=== PATIENT | male | born 1955 | race Caucasian/White ===

== ENCOUNTER → 2023-05-15 13:53 | Outpatient (REF) | payer MEDICARE, SELFPAY | LOC: RAD 13:53 | PROVIDERS: ATTENDING PHYSICIAN Surgery Vascular Surgery; FAMILY PHYSICIAN Family Medicine | DX: I71.40 Abdominal aortic aneurysm, without rupture, unspecified (principal) | CPT/HCPCS: 76770 ==

== ENCOUNTER → 2023-06-07 15:41 | Outpatient (REF) | payer MEDICARE, SELFPAY | LOC: HWRAD 15:41 | PROVIDERS: ATTENDING PHYSICIAN Internal Medicine Critical Care Medicine; FAMILY PHYSICIAN Family Medicine | DX: R91.1 Solitary pulmonary nodule (principal) | CPT/HCPCS: 71250 ==

== ENCOUNTER → 2023-09-10 15:32 | Outpatient (REF) | payer MEDICARE, SELFPAY | LOC: HWRAD 15:32 | PROVIDERS: ATTENDING PHYSICIAN Internal Medicine Critical Care Medicine; FAMILY PHYSICIAN Family Medicine | DX: R91.1 Solitary pulmonary nodule (principal) | CPT/HCPCS: 71250 ==

== ENCOUNTER 2023-09-26 06:45 | Day surgery (SDC) | payer MEDICARE, SELFPAY ==
[2023-09-26] VITALS (7 sets, daily range): BP systolic 101–143; BP diastolic 65–81
== END 2023-09-26 13:55 | disposition home or self-care (01) ==
LOC: GI 06:45
PROVIDERS: ATTENDING PHYSICIAN Internal Medicine Critical Care Medicine
DX: R91.1 Solitary pulmonary nodule (principal); C34.32 Malignant neoplasm of lower lobe, left bronchus or lung; R59.1 Generalized enlarged lymph nodes; R91.8 Other nonspecific abnormal finding of lung field
CPT/HCPCS: 31629; 31623; 31624; 31627; 31654; 88173; 88305; 71045; 76000; 81459; 87015; 87070; 87102; 87116; 87205; 88112; 88333; 88341; 88342; 94640; C1887

== ENCOUNTER → 2023-10-12 14:04 | Outpatient (REF) | payer MEDICARE, SELFPAY | LOC: MRI 3T 14:04 | PROVIDERS: ATTENDING PHYSICIAN Internal Medicine Critical Care Medicine; FAMILY PHYSICIAN Family Medicine | DX: C34.90 Malignant neoplasm of unspecified part of unspecified bronchus or lung (principal) | CPT/HCPCS: 70553; A9575 ==

== ENCOUNTER 2023-11-05 07:59 | Inpatient (IN) | payer MEDICARE, SELFPAY ==
[2023-10-18 13:48] LABS: % Basophils 0.7 % (0-2); % Eosinophils 1.5 % (0-6); % Immature Granulocytes 0.3 % (0-0.5); % Lymphocytes 24.3 % (20.5-51.1); % Monocytes 8.2 % (1.7-9.3); Absolute Basophils 0.1 10^3/uL (0-0.2); Absolute Eosinophils 0.1 10^3/uL (0-0.7); Absolute Lymphocytes 1.7 10^3/uL (1.2-3.4); Absolute Monocytes 0.6 10^3/uL (0.1-0.6); Absolute Neutrophils 4.4 10^3/uL (1.4-6.5); Hematocrit 38.3 % (39.0-52.0); Hemoglobin 13.7 g/dL (13.0-18.0); Mean Corp Hgb Conc. 35.8 g/dL (33.0-37.0); Mean Corpuscular Hgb 31.5 pg (27.0-31.0); Mean Platelet Volume 10.2 fL (7.4-10.4); Nucleated Red Blood Cells % 0 % (-); Platelet Count 273 10^3/uL (130-400); Red Blood Cell Count 4.35 10^6/uL (4.70-6.10); Red Cell Dist. Width 13.3 % (11.5-14.5); White Blood Cell Count 6.8 10^3/uL (4.8-10.8)
[2023-10-18 14:01] VITALS: BMI 24.8
[2023-10-18 14:02] LABS: ALT (SGPT) 12 U/L (0-50); AST (SGOT) 25 U/L (17-59); Albumin 4.7 g/dl (3.5-5.0); Alkaline Phosphatase 78 U/L (38-126); Blood Urea Nitrogen 11 mg/dl (9-20); Calcium 9.9 mg/dl (8.4-10.2); Carbon Dioxide 27 mmol/L (22-30); Chloride 102 mmol/L (98-107); Direct Bilirubin 0.3 mg/dl (0.0-0.4); Estimated Creatinine Clearance 70 ml/min; Glucose 92 mg/dl (70-99); Potassium 4.6 mmol/L (3.5-5.1); Sodium 139 mmol/L (135-145); Total Bilirubin 0.7 mg/dl (0.2-1.3); Total Protein 7.3 g/dl (6.3-8.2); eGFR > 60.00
[2023-10-18 14:07] LABS: Glycohemoglobin (HgbA1c) 5.3 % (4.0-5.6); Urine Albumin Negative (Neg - Trace); Urine Bilirubin Negative (Negative); Urine Character Clear (Clear); Urine Color Yellow; Urine Glucose Negative (Negative); Urine Ketone Negative (Negative); Urine Leukocyte Negative (Negative); Urine Nitrite Negative (Negative); Urine Occult Blood Trace (Negative); Urine Urobilinogen Negative (Neg - 1+)
[2023-10-18 14:08] LABS: INR 1.06; PT 13.9 Sec (11.4-14.6)
[2023-10-18 14:09] LABS: APTT 35.3 Sec (23.4-35.0)
[2023-10-18 14:22] LABS: Urine Bacteria Few (Negative); Urine Squamous Cell 0-2 /LPF (Few); Urine White Cell 0-2 /HPF (0-5)
--- NOTE | 2023-10-18 15:31 | CM ---
CM following for DC planning needs.
Met w/ patient during PATs for planned Lung Surgery, 10/29.
Pt. resides in a private, 2 story home w/ 3 [address] with sig. other and her mother. Functionally, patient is indep. w/ ADLs, mobility without the use of any assisted device.
Pt. does not have a prescription plan and uses [facility] for Rx needs; pays [facility] w/ discount programs.
Pre and post op routines reviewed.
Soap, shower instructions and Lung Surgery booklet provided.
Reviewed post op restrictions to include lifting and driving restrictions.
Post op MD appointments and visit from [facility] Transitional Care RN reviewed.
Plan is for Lung Surgery, 10/29.
Anticipated DC plan is for home w/ CT Transitional Care RN.
CM to follow.
[2023-11-05] VITALS (16 sets, daily range): BP systolic 102–149; BP diastolic 61–105; BMI 22.7
--- NOTE | 2023-11-05 01:12 | W.PN.CT ---
Addendum entered and electronically signed by Derian Fink PA-C 11/06/23 21:02:
Correction: Date of service for this Note should be: 11/06/23 @ 0112
Original Note:
Today's Communication / Plan
-
Plan:
-No major issues overnight. Hemodynamically and neurologically intact
-Successfully extubated intraop
-Chest tube currently on -20 cmh2o suction with 1+ air leak. Drainage: L pleural 150/270
-CxR with with tiny left apical ptx with increased in SQ emphysema on my review. F/U official cxr
-Will discuss chest to suction vs waterseal
-Will discuss possible chest binder for SQ emphysema
-Cont. current meds (ASA, Plavix, SQ heparin, Norvasc, Lasix/Kcl, Flomax)
-Consider d/c of ugarte later today after Flomax given BPH with acute urinary retention postop in the past
-Encourage use of IS
-OOB into chair/Ambulate
-F/U pathology
Assessment / Plan
-
Assessment:
-S/P Robotic assisted thoracic surgery [RATS] left lower lobectomy/Radical lymph node dissection/Intercostal nerve block interspaces 4 through 8 with 5 cc of bupivacaine solution in each, by Dr. Livingston, 11/05/23, pod#1
-Left Lung Ca /Adenocarcinoma of LLL (3.2 cm)
-Asbestos exposure
-S/p bronch biopsy 09/26/23
-Tobacco Abuse (40 pk/yr, quit 2020)
-AAA S/P FEVAR 12/07/20
-HTN
-Hyperthyroidism
-BPH
-Vitamine D deficiency
-Varicose vein S/P stripping,
-Cellulitis
-Depression/Anxiety
-Sinus bradycardia
-Skin ca of Left shoulder S/P excision, 2006
-Acute postop NSVT (6 runs of PVC's), Asymptomatic
Discussed patient care with: Cardiology, Nursing, Respiratory Therapy, Pharmacy and Care Team
Subjective
Procedure
S/P Robotic assisted thoracic surgery [RATS] left lower lobectomy/Radical lymph node dissection/Intercostal nerve block interspaces 4 through 8 with 5 cc of bupivacaine solution in each, by Dr. Livingston, 11/05/23
-
Date of Service: November 05, 2023
Pt c/o mild incisional pain, otherwise feels well
Objective Data
-
Lab Results
10/18/23 12:33
10/18/23 12:33
PT 13.9 Sec (11.4-14.6) 10/18/23 12:33
INR 1.06 10/18/23 12:33
APTT 35.3 Sec (23.4-35.0) H 10/18/23 12:33
Vital Signs
SaO2: 94 (RA)
Physical Exam
-
General: Awake, Oriented and AOx3
Cardiovascular: Regular rate & rhythm, No Murmurs, No Rub and No Gallop
Respiratory: Decreased Breath Sounds (on Left, otherwise clear)
Sternum: Stable
Incision: Clean, Dry, Intact and Dressing Intact
Extremities: No Edema
Data Reviewed
-
Lab Results: Results Reviewed
Medications: Active Meds Reviewed
Chest X-Ray: Report Reviewed and Image Reviewed
CT Scan: Report Reviewed and Image Reviewed
ECG: Report Reviewed and Image Reviewed
[2023-11-05] MEDS: BACTROBAN 2% OINTMENT 1 APPLIC NASAL (09:36)
--- NOTE | 2023-11-05 10:02 | PTCARENOTE ---
pt admitted to cvicu 2260. admission completed, pt clipped and prepped, confirmed showers x2, NPO since midnight, washed with CHG, labs sent, HM confirmed, pre-op education given, all questions answered.
--- NOTE | 2023-11-05 11:00 | W.CVOR.SURPR ---
CVOR Surgeon Immed Pre Op
-
I have examined this patient prior to performance of the scheduled procedure.
The patient's condition is unchanged from the time of the dictated/written History and
Physical and the patient is able to undergo the scheduled procedure.
RATS LLL + LN dissection
--- NOTE | 2023-11-05 11:35 | CM ---
Chart reviewed. Patient is in the OR today. Patient is independent of ADLS, lives with his significant other and mother in a 2 STH, 3 MATTHEW, 0 DME. Plan is the patient will return home with CT Transitional RN. CM to follow
[2023-11-05 11:52] LABS: Urine Albumin Negative (Neg - Trace); Urine Bilirubin Negative (Negative); Urine Character Clear (Clear); Urine Color Yellow; Urine Glucose Negative (Negative); Urine Ketone Negative (Negative); Urine Leukocyte Negative (Negative); Urine Nitrite Negative (Negative); Urine Occult Blood 2+ (Negative); Urine Urobilinogen Negative (Neg - 1+)
[2023-11-05 12:16] LABS: Urine Bacteria Few (Negative); Urine White Cell 0-2 /HPF (0-5)
--- NOTE | 2023-11-05 14:50 | W.PN.CT.SURG ---
CT Surgery Operative Note
-
THORACIC SURGERY OPERATIVE REPORT
Preoperative Diagnosis: Left lower lobe adenocarcinoma
Postoperative Diagnosis: Same, with central emphysema and scarring
Procedure(s) Performed:
1. Robotic assisted thoracic surgery [RATS] left lower lobectomy
2. Radical lymph node dissection
3. Intercostal nerve block interspaces 4 through 8 with 5 cc of bupivacaine solution in each
Date of Surgery: 11/05/2023
Comorbidities:
1. Lung cancer
2. Abdominal aortic aneurysm status post EVAR
3. Hypertension
4. Depression/anxiety
5. Hypothyroidism
6. BPH
7. History of bronchitis
8. History of tobacco abuse, quit in 2020
9. Asbestos exposure
Attending Surgeon: Tyrone Livingston MD, MS
Assistants: Marcella Hernandes PA-C (present and necessary to nurse first aid, exchanging robotic instruments, retraction, suction, exposure, suture management, and wound closure under my direction)
Anesthesiology: Brenden Salazar MD and Jan Juan CRNA
Scrub and Circulating RNs: Shaila Vick RN, Nathalia Desir RN
Anesthesia: Dual Lumen GETA
EBL: 100 cc
Products: None
Indication(s) for Procedures: This is a 68-year-old male with an extensive past smoking history. He was found to have a cavitary lesion in the left lower lobe. Robotic endoluminal bronchoscopy came back as adenocarcinoma. Given the size of the
mass, he met stage Ib the TNM staging for lung cancer. Lymph nodes were negative on preoperative workup. Given his size of the mass, I offered him a formal left lower lobectomy with lymph node dissection.
Findings: There are no obvious intrathoracic metachronous lesions that were concerning. The mass was visible on the surface and posterior left lower lobe with some puckering of the visceral pleura. The fissure was fully developed and there was
also some central emphysema making the hilum more scarred than usual. This required more dissection than usual. I was able to isolate the vessels leading to the left lower lobe as well as the basilar bronchus. The vessels were sequentially
transected first with the pulmonary artery followed by the pulmonary vein and finally after performing an inflation test demonstrating no obstruction of flow to the left upper lobe, the bronchus was divided. Lymph nodes were also sequentially
harvested from various stations. A leak test after resection of the left lower lobe demonstrated intact bronchial stump
Some minor air leaking from the overall parenchyma that was required for development of the fissure. The remaining left upper lobe had unobstructed flow at the conclusion of the case. The specimen was removed and verified manually to contain the
lesion. It was sent off for permanent pathology. At the conclusion the case, there was no significant air leak and no loss of tidal volumes. The patient was successfully extubated without incident.
Specimen(s):
Station 9, x 2 nodes
Station 10, x 1 nodes
Station 11, x 1 nodes
Station 5, x 2 nodes
Station 6, x 2 nodes
Station 7, x 1 nodes
Station 12, 1 node
left lower lobe
Description of Procedure: The patient was taken to the operating room. Induction via general anesthesia with endotracheal intubation was performed and peripheral venous access and arterial monitoring were inserted. Their identity and procedure to be
performed were verified and they were positioned with the left side up on the operating table. The patient was then prepped and draped in a sterile fashion. A preoperative time-out was performed with all members of the team present. A Veress needle
was used to insufflate the chest after isolating the lung. An 8 mm port was placed in the midaxillary line at approximately the eighth intercostal space and confirmed to be intrathoracic without significant pulmonary injury. The chest was surveyed
for any evidence of metastatic disease. Patient tolerate insufflation without complication. 2 additional 12 mm trocars were placed on either side under camera guidance and a third 8 mm trocar was placed along the back. A 12 mm patient observation assistant port was
placed in the 11th intercostal space above the insertion of the diaphragm. An intercostal nerve block was performed at intercostal spaces 4 through 8.
The thoracic cavity was inspected for evidence of metastatic disease. None was observed. We started with mobilization of the inferior pulmonary ligament. We worked our way clockwise dissecting out the hilum and harvest any lymph nodes identified.
The pulmonary arteries and veins leading to the left lower lobe were identified and skeletonized. Forward are to fully expose the hilar vessels, the right, between the left upper left lower lobe was divided using a green load staplers having
towards the pulmonary artery running along the fissure. Once the pulmonary artery was fully exposed, there were 2 significant branches leading to the left lower lobe that were sequentially divided with a white load stapler. Next the inferior
pulmonary vein was isolated and verified to be heading towards the lower lobe segment, this was divided with a white load stapler. I then clamped the bronchus and performed a test inflation which demonstrated unobstructed flow into the remaining
left upper lobe. The specimen was displaced toward the apex while a chest tube was inserted and placed laterally towards the apex. A bubble test was performed to identify any air leaks. CoSeal was used to reinforce the staple lines, raw
parenchyma, and hilum twice due to the extensive dissection required to free up the hilar vessels and develop the fissure. The left lower lobe was then placed into a specimen bag and extracted from the chest cavity. After confirming hemostasis,
the lung was fully inflated and all ports were removed. Incisions were closed in 3 layers including the fascia, dermal, and epidermis. Additional local anesthesia was injected into all incision sites. The skin wound was cleansed and sealed with
Dermabond glue.
All instrument, sponge, and needle counts were confirmed to be correct x 2 at the end of the operation. The patient was transferred to the cardiac intensive care unit extubated in critical but stable condition.
I, Dr. Tyrone Livingston, was present, scrubbed for, and performed all critical elements of this procedure.
Tyrone Livingston MD, MS
Cardiothoracic Surgeon
[facility]
This operative dictation was created using the [employer] dictation system. Please excuse any grammatical, typographical, or 'sound alike' errors
[2023-11-05] MEDS: DILAUDID 0.25 MG IV (15:10)
[2023-11-05] MEDS: TYLENOL PO (15:18)
[2023-11-05] MEDS: DILAUDID 0.5 MG IV (15:26)
--- NOTE | 2023-11-05 16:05 | CON.INTV ---
Consultation
Consultation Request
Date/Time Consultation Requested: 11/05/2023-4 PM
Date/Time Consultation Performed: 11/05/2023-4 PM
Requesting Provider: Dr. Livingston
Performing Provider: Dr. Turner
Reason for Consultation: Postoperative critical care management
Medical History
-
Chief Complaint: Lung cancer
History of Present Illness:
68-year-old male with history of hypertension, AAA, depression, anxiety, found to have left lower lobe cavitary lesion growing in size underwent bronchoscopy which was positive for malignant cells thought to have stage Ib lung cancer and underwent
lobectomy-pulmonary consulted for postoperative pulmonary/critical care management 11/05/2023. Patient is seen postoperatively. He has been successfully extubated. He feels like 'gumby'. He denies any shortness of breath, chest pain, productive
cough, pleurisy, abdominal pain, nausea, weakness or increased leg swelling.
Past Medical History
Past Medical History: None (Hypertension. Anxiety. Depression. Hypothyroid. Vitamin D deficiency. BPH. Lung cancer. Chronic bronchitis.)
Social History
Tobacco: Former Smoker (82-kqde-xfne-quit 2020)
Drug: None
Personal:
Living: With Family
Occupational Exposures: No known asbestos exposure
Environmental Exposures: No known tuberculosis exposure
Family History
Family History: Other (Father-CAD. Mother-Alzheimer's)
Allergies / Home Medications
Allergies
Allergy/AdvReac Type Severity Reaction Status Date / Time
clarithromycin [From Biaxin] Allergy Tachycardia Verified 10/16/23 14:57
clindamycin Allergy Restlessness, Verified 10/16/23 14:57
Heart
bounding
Penicillins Allergy Unknown Verified 10/16/23 14:57
Home Medications
�Medication �Instructions �Recorded �Confirmed �Last Taken �Type
alprazolam 0.5 mg tablet 0.5 mg PO BID PRN Mental 11/03/20 11/05/23 11/05/23 07:00 History
Health/Anxiety
amlodipine 2.5 mg tablet 2.5 mg PO DAILY Blood pressure 11/03/20 11/05/23 11/05/23 07:00 History
cholecalciferol (vitamin D3) 125 5,000 unit PO DAILY Supplement 11/03/20 11/05/23 10/21/23 08:00 History
mcg (5,000 unit) disintegrating
tablet
magnesium oxide 250 - 500 mg PO QPM Supplement 11/03/20 11/05/23 10/21/23 08:00 History
aspirin 81 mg tablet,delayed 81 mg PO DAILY Blood clot 12/07/20 11/05/23 10/28/23 08:00 History
release (Adult Aspirin Regimen) prevention/tx
clopidogrel 75 mg tablet 75 mg PO DAILY #60 tabs 12/13/20 11/05/23 10/28/23 08:00 Rx
alpha lipoic acid 300 mg capsule 300 mg PO BID 11/02/21 11/05/23 10/21/23 08:00 History
selenium 200 mcg tablet 200 mcg PO DAILY 11/02/21 11/05/23 10/21/23 08:00 History
tamsulosin 0.4 mg capsule 0.4 mg PO HS 11/02/21 11/05/23 10/21/23 08:00 History
zinc acetate 50 mg (zinc) capsule 50 mg PO DAILY 11/02/21 11/05/23 10/21/23 08:00 History
losartan 50 mg-hydrochlorothiazide 1 tab PO DAILY 06/08/23 11/05/23 11/01/23 08:00 History
12.5 mg tablet
albuterol sulfate 90 mcg/actuation 2 puff inhalation Q6H PRN SOB 09/24/23 11/05/23 11/05/23 07:00 History
aerosol inhaler
acetaminophen 325 mg tablet 650 mg PO Q6H PRN pain 09/26/23 11/05/23 11/04/23 21:00 History
Review of Systems
-
Unable to Obtain full review of systems at this time due to: Other (Per HPI)
Vitals / Labs / Diagnostic Testing
Vital Signs
Temp Pulse Resp BP Pulse Ox
97.9 F 71 15 108/73 94
11/05/23 15:45 11/05/23 15:45 11/05/23 15:45 11/05/23 15:45 11/05/23 15:45
Lab Data
10/18/23 12:33
10/18/23 12:33
Diagnostic Testing:
Physical Exam
-
Exam:
Well-nourished and well-developed in no apparent distress
HEENT-atraumatic, normocephalic
Neck-supple, no JVD, no bruit
Heart-regular rate and rhythm-no murmurs, rubs or gallops
Chest-clear to auscultation, no wheezes, crackles, chest tube noted
Back-no tenderness
Abdomen-soft, nontender, nondistended, no hepatosplenomegaly
Extremities-no cyanosis, clubbing, edema and good peripheral pulses
Integument-intact, no rashes, lesions or ecchymosis
Neurology-alert and oriented, nonfocal motor and sensory exam
Assessment
-
68 -year-old male with history of hypertension, AAA, depression, anxiety, found to have left lower lobe cavitary lesion growing in size underwent bronchoscopy which was positive for malignant cells thought to have stage Ib lung cancer and underwent
left lower lobectomy-pulmonary consulted for postoperative pulmonary/critical care management 11/05/2023.
Lung cancer status post robotic assisted left lower lobectomy with radical lymph node dissection-Dr. Livingston 11/05/2023
Mild hyponatremia
Conditions present prior to admission:
Hypertension.
Anxiety.
Depression.
Hypothyroid.
Vitamin D deficiency.
BPH.
Lung cancer.
Chronic bronchitis.
Plan
Patient has been successfully extubated
Incentive spirometry
Wean FiO2
Nebulizers if needed
Monitor chest tube output
Monitor hemoglobin
Monitor platelet count and coags
Transfuse blood product if needed
CT surgery following chest tubes
Monitor blood sugar
Insulin drip per protocol
DVT prophylaxis
Early nutrition
Early mobilization
Patient last saw Dr. Langley 09/12/2023-we will set up an appointment to follow-up with him postoperatively
Critical care statement: A total of 46 minutes of critical care time was provided for this patient today. This includes management of ventilator, spontaneous breathing trial, arterial blood gases, pressors, of unstable vital signs, evaluation of the
patient at bedside, reviewing the patient's pertinent medical records including radiographs, microbiology, laboratory evaluations, and discussion with primary team and critical care nursing.
Diagnostic data:
CT chest 09/10/23: left lower lobe nodule/mass, 3.2 cm, cavitary.� Slightly increased compared to prior.� Mild emphysema
CT chest 06/07/23: 1.3 cm x 3 cm cavitary left lower lobe nodule. Mild centrilobular emphysema. No obvious adenopathy
PET scan 04/26/23 ([facility]): reviewed on CD. Left lower lobe nodule noted. Max SUV 4.1. Size 1.9 cmLDCT 04/10/23 ([facility]): Reviewed on CD. left lower lobe lobular nodule notedCT
PET scan 10/17/2023-small cavitary lesion left lower lobe slightly increased in size with slightly greater FDG uptake compared to April 2023-max SUV 4.9 on prior SUV was 4.1
chest 04/10/23 ([place]): reviewed images, 2.8 cm lingular nodule, cavitary 1.6 cm lesion in the liver, benign appearing. Aortic stent
Doppler 01/29/22: negative right DVT
Abd CT 12/09/20: bibasilar subpleural atelectasisCXR 12/02/20: No acute findings.
PFT 06/14/23: FVC 4.96/119%, FEV1 3.12/101%, ratio 63. TLC 7.62/114%, RV 2.32/93%, DLCO 20.01/77%. flow-volume loop consistent with obstructive process. Mild obstructive lung disease with Isolated mild gas exchange defect.
Data Reviewed
-
PFT: Report reviewed by me
EKG: Report reviewed by me
Radiology: Report reviewed by me
CT Scan: Image personally visualized and interpreted and Report reviewed by me
Medical Tests (Nuc Med, Echo etc): Report reviewed by me
Labs: Labs reviewed by me
Old Records: Reviewed
Critical Care Time (in minutes): 46
[2023-11-05] MEDS: TORADOL 15 MG IV (16:23)
[2023-11-05] MEDS: NEURONTIN 100 MG PO ×2 (16:24→22:57)
--- NOTE | 2023-11-05 16:39 | PTCARENOTE ---
received pt from PACU , pt AAOx3, afebrile, pt complaining of pain 3, Toradol given, NSR per tele HR 60s, palpable pulses, BP 120s/60s, pox 97%, L pleural CT to wall suction, +1 intermittent air leak, no crepitus/tidaling, lungs diminished, +bs,
denies nausea, ugarte draining clear yellow urine, all surgical incisions intact, piv intact, L radial A-line zeroed
[2023-11-05] MEDS: MAG-TAB SR 84 MG PO (18:58)
--- NOTE | 2023-11-05 20:00 | PTCARENOTE ---
Assumed care of patient at 1900. Patient found in bed at time of assessment. Patient is Aox4, follows commands appropriately, moves all extremities. Lung sounds have some rhonci on the L side in lower and middle lobe, patient has shallow
respirations, there is a nonproductive moist cough noted, patient has an saO2 of 95% on RA. Heart sounds have a regular rate and rhythm, patient has normal palpable pulses, no edema is noted patient is in SR/SB on the monitor. Patient has active BS
in all four quadrants and there is a ugarte in place draining clear yellow urine. Patient has R Hand 18G and R radial [place]. There is a L pleural CT wound- 4x4 CDI, 1 lateral L chest incision approx with surg adhesive YVES, 3x L upper chest incisions
approx with surg adhesive [employer]ADING [employer]OR. Patient c/o pain given medication per parameters.
[2023-11-05] MEDS: ROXICODONE 5 MG PO (20:12)
[2023-11-05] MEDS: HEPARIN 5000 UNITS SC (20:13)
[2023-11-05] MEDS: SENOKOT 8.6 MG PO (20:13)
[2023-11-05] MEDS: ANCEF 5 IV (20:14)
[2023-11-05] MEDS: TYLENOL 1000 MG PO (22:57)
[2023-11-05] MEDS: FLOMAX 0.4 MG PO (22:57)
[2023-11-06] VITALS (14 sets, daily range): BP systolic 93–158; BP diastolic 60–103; BMI 22.7
--- NOTE | 2023-11-06 | PTCARENOTE ---
Patient reassessed. VSS. Continues to c/o pain given Mireya per parameters. Remains SR/SB on the monitor.
[2023-11-06] MEDS: ROXICODONE 5 MG PO ×5 (00:20→21:15)
[2023-11-06] MEDS: HEPARIN 5000 UNITS SC ×3 (01:40→16:34)
[2023-11-06] MEDS: ANCEF 5 IV ×2 (03:34→11:58)
[2023-11-06 04:12] LABS: Hematocrit 33.8 % (39.0-52.0); Hemoglobin 12.1 g/dL (13.0-18.0); Mean Corp Hgb Conc. 35.8 g/dL (33.0-37.0); Mean Corpuscular Hgb 31.3 pg (27.0-31.0); Mean Corpuscular Volume 87.3 fL (80.0-94.0); Mean Platelet Volume 9.9 fL (7.4-10.4); Platelet Count 205 10^3/uL (130-400); Red Blood Cell Count 3.87 10^6/uL (4.70-6.10); Red Cell Dist. Width 13.5 % (11.5-14.5)
[2023-11-06 04:44] LABS: Blood Urea Nitrogen 16 mg/dl (9-20); Calcium 8.9 mg/dl (8.4-10.2); Carbon Dioxide 20 mmol/L (22-30); Chloride 103 mmol/L (98-107); Estimated Creatinine Clearance 81 ml/min; Glucose 106 mg/dl (70-99); Magnesium 2.1 mg/dl (1.6-2.3); Potassium 4.3 mmol/L (3.5-5.1); Sodium 136 mmol/L (135-145); eGFR > 60.00
--- NOTE | 2023-11-06 05:21 | PTCARENOTE ---
Patient reassessed. VSS. Remains SB on the monitor. AM labs obtained. AM hygiene care provided.
[2023-11-06] MEDS: TORADOL 15 MG IV ×3 (05:55→17:59)
[2023-11-06] MEDS: TYLENOL 1000 MG PO ×3 (05:55→21:15)
--- NOTE | 2023-11-06 07:38 | W.PN.INTV ---
Today's Communication / Plan
Recommendations
Wean oxygen
Monitor chest tube output
Follow chest x-ray with tiny left apical pneumothorax and subcutaneous emphysema
Outpatient pulmonary follow-up
Patient will be transferred to telemetry-call pulmonary if respiratory issues arise
Assessment
-
68 -year-old male with history of hypertension, AAA, depression, anxiety, found to have left lower lobe cavitary lesion growing in size underwent bronchoscopy which was positive for malignant cells thought to have stage Ib lung cancer and underwent
left lower lobectomy-pulmonary consulted for postoperative pulmonary/critical care management 11/05/2023.
Lung cancer status post robotic assisted left lower lobectomy with radical lymph node dissection-Dr. Livingston 11/05/2023
Mild hyponatremia
Tiny left apical pneumothorax postoperatively
Conditions present prior to admission:
Hypertension.
Anxiety.
Depression.
Hypothyroid.
Vitamin D deficiency.
BPH.
Lung cancer.
Chronic bronchitis.
Plan
Respiratory status stable
Incentive spirometry encouraged
Wean FiO2-assess discharge supplemental oxygen needs
Nebulizers if needed
Chest x-ray 11/06/2023-tiny left apical pneumothorax-improved, progressed severe subcutaneous emphysema in the left lateral hemithorax
Continue to monitor chest tube output
Monitor hemoglobin
Monitor platelet count and coags
Transfuse blood product if needed
CT surgery following chest tubes
Monitor blood sugar
Insulin supplementation as needed
DVT prophylaxis
Early nutrition
Early mobilization
The patient will be transferred to telemetry-pulmonary will sign off-please call with questions
Patient last saw Dr. Langley 09/12/2023-we will set up an appointment to follow-up with him postoperatively
Reviewed the patient's pertinent medical records including radiographs, microbiology, laboratory evaluations, and discussion with primary team and critical care nursing.
Diagnostic data:
CT chest 09/10/23: left lower lobe nodule/mass, 3.2 cm, cavitary.� Slightly increased compared to prior.� Mild emphysema
CT chest 06/07/23: 1.3 cm x 3 cm cavitary left lower lobe nodule. Mild centrilobular emphysema. No obvious adenopathy
PET scan 04/26/23 ([facility]): reviewed on CD. Left lower lobe nodule noted. Max SUV 4.1. Size 1.9 cmLDCT 04/10/23 ([facility]): Reviewed on CD. left lower lobe lobular nodule notedCT
PET scan 10/17/2023-small cavitary lesion left lower lobe slightly increased in size with slightly greater FDG uptake compared to April 2023-max SUV 4.9 on prior SUV was 4.1
chest 04/10/23 ([place]): reviewed images, 2.8 cm lingular nodule, cavitary 1.6 cm lesion in the liver, benign appearing. Aortic stent
Doppler 01/29/22: negative right DVT
Abd CT 12/09/20: bibasilar subpleural atelectasisCXR 12/02/20: No acute findings.
PFT 06/14/23: FVC 4.96/119%, FEV1 3.12/101%, ratio 63. TLC 7.62/114%, RV 2.32/93%, DLCO 20.01/77%. flow-volume loop consistent with obstructive process. Mild obstructive lung disease with Isolated mild gas exchange defect.
Subjective Dataa
Subjective Data
Date of Service:
Date of Service: November 06, 2023
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
Subjective:
Out of bed, feels well, some chest tube site pain, no shortness of breath or abdominal pain
Review of Systems
General: Other (Per HPI)
Objective Data
Data Reviewed
Vital Signs / I&O / Oxygen:
Vital Signs
Temp Pulse Resp BP Pulse Ox
98.5 F 68 21 125/69 94
11/06/23 03:00 11/06/23 06:45 11/06/23 06:15 11/06/23 06:00 11/06/23 06:45
Intake and Output
11/05/23 11/06/23 11/07/23
06:59 06:59 06:59
Intake Total 100 / 100
Output Total 1275 / 1275
Balance -1175 / -1175
SaO2 94
Physical Exam
General: Respiratory Distress (n) and Comfortable
HEENT: Normocephalic, Anicteric and Moist Mucous Membranes
Cardiovascular: Regular Rhythm and Murmur (n)
Respiratory: Wheeze (n), Rhonchi (Few expiratory), Non-Labored Respirations, Accessory Resp Muscle Use (n) and Stridor (n)
GI: Soft, Non Distended and Non Tender
Neurology: Awake, Alert and No Motor Deficits
Skin: Warm, Good Color, Cyanosis, Jaundice (n) and Rash (n)
Labs/Micro/Reports
Lab Data
11/06/23 03:19
11/06/23 03:19
--- NOTE | 2023-11-06 08:00 | PTCARENOTE ---
Assumed care of patient from tong setter RN. AAO x 3. C/o LT lateral chest pain in chest tube/incision sites. LT chest tube with intermittent air leak and tidling noted. Rhonchi noted in bilateral lung lazaro. Abdomen soft and non tender.
Voiding w/o issue. Pain management addressed. Plan for day discussed
[2023-11-06] MEDS: ASPIR LOW (ENTERIC COATED) 81 MG PO (08:51)
[2023-11-06] MEDS: NEURONTIN 100 MG PO ×3 (08:51→21:16)
[2023-11-06] MEDS: NORVASC 2.5 MG PO (08:51)
[2023-11-06] MEDS: VITAMIN D3 (cholecalciferol) 125 MCG PO (08:51)
[2023-11-06] MEDS: KCL 20 MEQ PO (08:51)
[2023-11-06] MEDS: SENOKOT 8.6 MG PO ×2 (08:51→21:16)
[2023-11-06] MEDS: PLAVIX 75 MG PO (08:51)
[2023-11-06] MEDS: MIRALAX PO (08:52)
[2023-11-06] MEDS: LIDOCAINE 4% PATCH 1 PATCH TOPICAL (08:52)
[2023-11-06] MEDS: LASIX 20 MG IV (08:52)
--- NOTE | 2023-11-06 09:00 | PTCARENOTE ---
Abdominal binder placed as per MD order. Crepitus noted at Lt lateral chest. VSS
--- NOTE | 2023-11-06 10:46 | CM ---
Chart reviewed. Patient is independent of ADLS, lives with his significant other and mother in a 2 [address], 3 [facility], 0 [facility]. Plan is for the patient to return home with CT Transitional RN. CM to follow
[2023-11-06] MEDS: XANAX 0.5 MG PO ×2 (11:58→22:00)
--- NOTE | 2023-11-06 12:58 | PTCARENOTE ---
Pain well managed. Air leak remains intermittent. VSS. Assessment otherwise unchanged from prior.
[2023-11-06] MEDS: TOPROL XL 12.5 MG PO (14:37)
--- NOTE | 2023-11-06 15:55 | PTCARENOTE ---
Pt due to void at 1530, Bladder scanned per protocol, pt with 323 ml urine noted in bladder. Ambulated on suction to bathroom, unable to void at present. Denies urge. CT REFRACTORY FURNACE DESIGNER notified. Will allow more time. Ambulated around entire room for approx
50 feet with steady gait. VSS. Assessment unchanged from prior.
[2023-11-06] MEDS: MAG-TAB SR PO (16:35)
[2023-11-06] MEDS: MAG-TAB SR 84 MG PO (17:59)
--- NOTE | 2023-11-06 18:14 | PTCARENOTE ---
Pt still has not voided post ugarte removal this am. Ambulated in room, stood at toilet denies urge to void. Re scanned for 464 ml urine. Wishes to wait a bit longer and attempt again after dinner. Discussed with CT TARIFF PUBLISHING AGENT. Will monitor.
--- NOTE | 2023-11-06 20:00 | PTCARENOTE ---
Assumed care of patient at 1900. Patient found OOB in chair at time of assessment. Patient is AOX4, follows commands appropriately, moves all extremities. Lung sounds have rhonci throughout, saO2 is 94% on RA, there is a L pleural CT in place to
wall suction draining red sanguineous with +1 air leak, tidaling and crepitus present. Heart sounds are audible, patient is in SR/SB/SA at times, there are normal palpable pulses and no edema is noted. Patient has active BS throughout all four
quadrants and has had difficulty with urinary retention during day will bladder scan shortly after patient attempts to void. Patient has a L back CT wound with 4x4 dressing that is CDI, a L lateral incision approx with surg adhesive HEALTH CARE LIAISON, and 3x L
upper chest incisions approx with surg adhesive YVES. Patient appears to have fungal rash of groin acquiring desenex per protocol. There is a R Hand PIV available for intermittent infusion. VSS.
[2023-11-06] MEDS: FLOMAX 0.4 MG PO (21:15)
[2023-11-07] VITALS (10 sets, daily range): BP systolic 116–160; BP diastolic 73–104; BMI 23.4
--- NOTE | 2023-11-07 00:04 | PTCARENOTE ---
Patient reassessed. VSS. Patient scanned for 650 mL in the bladder following small void. Patient attempted another void only measuring 50mL. Orders received to place Ugarte. 16FR ugarte placed without difficulty at 2200 which patient tolerated.
Drained for 600mL of jinny clear urine. Patient given [id number] for pain.
[2023-11-07] MEDS: HEPARIN 5000 UNITS SC ×4 (00:16→22:35)
[2023-11-07] MEDS: DESENEX/MITRAZOL/ZEASORB 1 APPLIC TOPICAL ×3 (00:16→21:09)
--- NOTE | 2023-11-07 04:38 | W.PN.CT ---
Today's Communication / Plan
-
Plan:
-No major issues overnight. Hemodynamically and neurologically intact
-Chest tube currently on -20 cmh2o suction with 1+ air leak. Drainage: L pleural 135/270
-CxR with with tiny left apical ptx with SQ emphysema on my review. F/U official cxr
-Will discuss chest to suction vs waterseal
-Cont. current meds (ASA, Plavix, SQ heparin, Norvasc, Lasix/Kcl, Flomax)
-Acute postop urinary retention, scanned for > 600 mL, ugarte reinsert @ 2230 on 11/05 and d/c'd next morning. Voiding trials
-Encourage use of IS
-OOB into chair/Ambulate
-F/U pathology
Assessment / Plan
-
Assessment:
-S/P Robotic assisted thoracic surgery [RATS] left lower lobectomy/Radical lymph node dissection/Intercostal nerve block interspaces 4 through 8 with 5 cc of bupivacaine solution in each, by Dr. Livingston, 11/05/23, pod#2
-Left Lung Ca /Adenocarcinoma of LLL (3.2 cm)
-Asbestos exposure
-S/p bronch biopsy 09/26/23
-Tobacco Abuse (40 pk/yr, quit 2020)
-AAA S/P FEVAR 12/07/20
-HTN
-Hyperthyroidism
-BPH
-Vitamine D deficiency
-Varicose vein S/P stripping,
-Cellulitis
-Depression/Anxiety
-Sinus bradycardia
-Skin ca of Left shoulder S/P excision, 2006
-Acute postop NSVT (6 runs of PVC's), Asymptomatic
-Acute postop urinary retention, scanned for > 600 mL, ugarte reinsert @ 2230 on 11/05 and d/c'd next morning
Discussed patient care with: Cardiology, Nursing, Respiratory Therapy, Pharmacy and Care Team
Subjective
Procedure
S/P Robotic assisted thoracic surgery [RATS] left lower lobectomy/Radical lymph node dissection/Intercostal nerve block interspaces 4 through 8 with 5 cc of bupivacaine solution in each, by Dr. Livingston, 11/05/23
-
Date of Service: November 07, 2023
pt c/o incisional pain, otherwise feels well
Objective Data
-
Lab Results
11/06/23 03:19
11/06/23 03:19
PT 13.9 Sec (11.4-14.6) 10/18/23 12:33
INR 1.06 10/18/23 12:33
APTT 35.3 Sec (23.4-35.0) H 10/18/23 12:33
Vital Signs
Vital Signs
Temp Pulse Resp BP Pulse Ox
98 F 48 22 132/81 97
11/07/23 03:00 11/07/23 04:30 11/07/23 03:00 11/07/23 03:23 11/07/23 03:00
CT Intake/Output/Weight
11/06/23 11/06/23 11/07/23
06:59 18:59 06:59
Intake Total 1080 / 1080
Output Total 730 / 1385 285 / 1430 1145 / 1430
Balance -730 / -1045 795 / -350 -1145 / -350
SaO2: 97 (RA)
Physical Exam
-
General: Awake, Oriented and AOx3
Cardiovascular: Regular rate & rhythm
Respiratory: Decreased Breath Sounds (at bases)
Sternum: Stable
Incision: Clean, Dry, Intact and Dressing Intact
Extremities: No Edema
Data Reviewed
-
Lab Results: Results Reviewed
Medications: Active Meds Reviewed
Chest X-Ray: Report Reviewed and Image Reviewed
ECG: Report Reviewed and Image Reviewed
--- NOTE | 2023-11-07 04:47 | PTCARENOTE ---
Patient reassessed. VSS. No c/o pain at this time. SB/SR on the surveillance monitor.
[2023-11-07] MEDS: TORADOL 15 MG IV ×2 (06:45→15:12)
[2023-11-07] MEDS: TYLENOL 1000 MG PO ×3 (06:45→21:09)
[2023-11-07] MEDS: TOPROL XL 12.5 MG PO (08:20)
[2023-11-07] MEDS: ASPIR LOW (ENTERIC COATED) 81 MG PO (08:21)
[2023-11-07] MEDS: ROXICODONE 5 MG PO ×3 (08:21→21:06)
[2023-11-07] MEDS: PLAVIX 75 MG PO (08:22)
[2023-11-07] MEDS: NORVASC 2.5 MG PO (08:22)
[2023-11-07] MEDS: VITAMIN D3 (cholecalciferol) 125 MCG PO (08:22)
[2023-11-07] MEDS: NEURONTIN 100 MG PO ×3 (08:22→21:09)
[2023-11-07] MEDS: SENOKOT 8.6 MG PO (08:22)
[2023-11-07] MEDS: MIRALAX 17 GRAMS PO (08:23)
[2023-11-07] MEDS: LIDOCAINE 4% PATCH 1 PATCH TOPICAL (08:23)
--- NOTE | 2023-11-07 08:30 | PTCARENOTE ---
Received pt from operation shift supervisor RN; pt AAOX3 and resting comfortably in chair; NSR on monitor and VSS; PIVx1 patent; Lungs diminished and rhonchus; Ct x1 to -20 wall suction, +1 air leak noted, crepitus and tidaling; positive bowel sounds; pt due to
void post Alonzo catheter removal at 0600; palpable pulses throughout; no edema noted; surgical sites C/D/I; see nursing documentation for further details.
--- NOTE | 2023-11-07 12:51 | PTCARENOTE ---
Assessment unchanged; NSR on monitor and VSS; pt worked with cardiac rehab and ambulated in hallway.
--- NOTE | 2023-11-07 12:52 | PTCARENOTE ---
Assessment unchanged; NSR on monitor and VSS.
[2023-11-07] MEDS: ProAIR HFA INHALER 2 PUFF INH (13:10)
[2023-11-07] MEDS: XANAX 0.5 MG PO ×2 (13:47→21:08)
--- NOTE | 2023-11-07 15:56 | PTCARENOTE ---
Assessment unchanged; NSR on monitor and VSS.
[2023-11-07] MEDS: MAG-TAB SR 84 MG PO (17:07)
[2023-11-07] MEDS: SENOKOT PO (21:09)
[2023-11-07] MEDS: MUCINEX 1200 MG PO (21:09)
[2023-11-07] MEDS: FLOMAX 0.4 MG PO (21:09)
--- NOTE | 2023-11-07 21:51 | PTCARENOTE ---
Pt. received at change of shift. Pt. seen and assessed in room. Pt. AOx3, VS WNL. Tele reading NSR with beatriceq. PVCs. Complaining of 8/10 pain at left side of back where chest tube insertion is located. PRN roxycodone 5mg administered around 2100. No
other complaints at this time. Patient verbalizes understanding of plan of care. Call piper within reach. Continuing to monitor at this time.
--- NOTE | 2023-11-07 22:51 | PTCARENOTE ---
abdominal binder education conducted, pt. wearing it at this time with no complaints, chest tube draining.
[2023-11-07] MEDS: ROXICODONE 2.5 MG PO (23:57)
[2023-11-08] VITALS (8 sets, daily range): BP systolic 113–149; BP diastolic 70–98; BMI 23.8
[2023-11-08 02:22] LABS: Hematocrit 34.7 % (39.0-52.0); Hemoglobin 12.9 g/dL (13.0-18.0); Mean Corp Hgb Conc. 37.2 g/dL (33.0-37.0); Mean Corpuscular Hgb 31.5 pg (27.0-31.0); Mean Corpuscular Volume 84.6 fL (80.0-94.0); Mean Platelet Volume 9.5 fL (7.4-10.4); Platelet Count 203 10^3/uL (130-400); Red Cell Dist. Width 13.4 % (11.5-14.5)
[2023-11-08 02:44] LABS: Blood Urea Nitrogen 20 mg/dl (9-20); Calcium 9.1 mg/dl (8.4-10.2); Carbon Dioxide 19 mmol/L (22-30); Chloride 106 mmol/L (98-107); Estimated Creatinine Clearance 82 ml/min; Glucose 109 mg/dl (70-99); Potassium 4.3 mmol/L (3.5-5.1); Sodium 138 mmol/L (135-145); eGFR > 60.00
[2023-11-08] MEDS: TYLENOL 1000 MG PO ×3 (05:25→22:03)
--- NOTE | 2023-11-08 07:38 | W.PN.CT ---
Today's Communication / Plan
-
-pod #3
-L pleural CT on -20 sxn with +1 intermittent air leak. No ptx on CXR
-has subcutaneous emphysema at L anterior and lateral wall - binder was put on
-encourage IS, OOB
Assessment / Plan
-
Assessment:
-S/P Robotic assisted thoracic surgery [RATS] left lower lobectomy/Radical lymph node dissection/Intercostal nerve block interspaces 4 through 8 with 5 cc of bupivacaine solution in each, by Dr. Livingston, 11/05/23, pod#3
-Left Lung Ca /Adenocarcinoma of LLL (3.2 cm)
-Asbestos exposure
-S/p bronch biopsy 09/26/23
-Tobacco Abuse (40 pk/yr, quit 2020)
-AAA S/P FEVAR 12/07/20
-HTN
-Hyperthyroidism
-BPH
-Vitamine D deficiency
-Varicose vein S/P stripping,
-Cellulitis
-Depression/Anxiety
-Sinus bradycardia
-Skin ca of Left shoulder S/P excision, 2006
-Acute postop NSVT (6 runs of PVC's), Asymptomatic
-Acute postop urinary retention, scanned for > 600 mL, ugarte reinsert @ 2230 on 11/05 and d/c'd next morning
Discussed patient care with: Nursing and Care Team
Subjective
Procedure
S/P Robotic assisted thoracic surgery [RATS] left lower lobectomy/Radical lymph node dissection/Intercostal nerve block interspaces 4 through 8 with 5 cc of bupivacaine solution in each, by Dr. Livingston, 11/05/23
-
Date of Service: November 08, 2023
Objective Data
-
Lab Results
11/08/23 02:09
11/08/23 02:09
PT 13.9 Sec (11.4-14.6) 10/18/23 12:33
INR 1.06 10/18/23 12:33
APTT 35.3 Sec (23.4-35.0) H 10/18/23 12:33
Vital Signs
Vital Signs
Temp Pulse Resp BP Pulse Ox
98.2 F 77 20 147/77 93
11/08/23 02:16 11/08/23 05:45 11/08/23 02:16 11/08/23 05:25 11/08/23 04:15
CT Intake/Output/Weight
11/07/23 11/08/23 11/08/23
18:59 06:59 18:59
Output Total 1130 / 2850 1720 / 2850 20 / 20
Balance -1130 / -2850 -1720 / -2850 -20 / -20
SaO2: 93
Physical Exam
-
General: Awake and AOx3
Cardiovascular: Regular rate & rhythm
Respiratory: Decreased Breath Sounds (few crackles on on L. No wheeze b/l. Subcut. emphysema at L lateral and anterior chest wall)
Incision: Clean, Dry and Dressing Intact
Extremities: Edema +1 (b/l varicose veins of lower extremities)
Data Reviewed
-
Lab Results: Results Reviewed
Medications: Active Meds Reviewed
Chest X-Ray: Report Reviewed and Image Reviewed
ECG: Report Reviewed and Image Reviewed
[2023-11-08] MEDS: MIRALAX PO (08:34)
[2023-11-08] MEDS: LIDOCAINE 4% PATCH 1 PATCH TOPICAL (08:34)
[2023-11-08] MEDS: ROXICODONE 5 MG PO ×3 (08:40→20:15)
[2023-11-08] MEDS: TYLENOL 650 MG PO (08:40)
[2023-11-08] MEDS: MUCINEX 1200 MG PO ×2 (08:45→20:14)
[2023-11-08] MEDS: ASPIR LOW (ENTERIC COATED) 81 MG PO (08:45)
[2023-11-08] MEDS: VITAMIN D3 (cholecalciferol) 125 MCG PO (08:45)
[2023-11-08] MEDS: SENOKOT 8.6 MG PO ×2 (08:45→20:14)
[2023-11-08] MEDS: PLAVIX 75 MG PO (08:45)
[2023-11-08] MEDS: HYZAAR 50-12.5 1 TAB PO (08:46)
[2023-11-08] MEDS: NEURONTIN 100 MG PO ×3 (08:46→22:03)
[2023-11-08] MEDS: HEPARIN 5000 UNITS SC ×3 (08:46→23:11)
[2023-11-08] MEDS: DESENEX/MITRAZOL/ZEASORB 1 APPLIC TOPICAL ×2 (08:51→20:15)
[2023-11-08] MEDS: NORVASC 2.5 MG PO (09:02)
[2023-11-08] MEDS: TOPROL XL 12.5 MG PO (09:05)
--- NOTE | 2023-11-08 10:00 | PTCARENOTE ---
Pt refused abdominal binder. Encouraged use of binder.
--- NOTE | 2023-11-08 11:18 | CM ---
CM following for DC planning needs.
Met w/ patient at bedside. He is POD#[address] Surgery. He reports that he is feeling well. He is hopeful for DC soon.
DC plan is for home w/ CT Transitional Care RN.
CM to follow closely.
--- NOTE | 2023-11-08 11:48 | PTCARENOTE ---
Pt notified RN that 'something is not right'. Pt was sitting in his recliner with his chest tube stuck in the leg rest. Pt repositioned and unstuck. PA notified. Pt stated that his pain was getting alot worse. PA renotified and in room to
evaluate pt. Awaiting repeat CXR .
[2023-11-08] MEDS: XANAX 0.5 MG PO ×2 (12:57→23:11)
[2023-11-08] MEDS: MAG-TAB SR 84 MG PO (17:47)
[2023-11-08] MEDS: XYLOCAINE 2% MDV 20 ML INJ (19:00)
--- NOTE | 2023-11-08 19:12 | W.PN.UPDATE ---
Update Note
Progress Note Update
Assessing patient prior to change of shift.
Noticed airleak seemed continuous. Dressing was removed, airleak seems to be stemming from a slight opening around his incision and chest tube.
2 silk sutures were placed.
Patient was given 10 mL of local lidocaine.
1 simple interrupted stitch was placed to close the incision around the chest tube.
Another stitch was placed to secure the tube.
Site was redressed with 2 Biopatches around the tube,gauze, and Tegaderm. CT was taped mesentery style in 3 sites below the incision.
[2023-11-08] MEDS: FLOMAX 0.4 MG PO (22:03)
--- NOTE | 2023-11-08 23:29 | PTCARENOTE ---
Addendum entered by Andrea Renae RN 11/09/23 07:32:
10cm, not 10mm
Original Note:
Pt received start of shift, HR SR/ST w/ PVCs. Chest tube connected to wall suction, set to 10mm on chest tube. Chest tube draining serosanguineous drainage. Crepitus palpated around insertion site and around to front L chest. CVPA Marcella at bedside.
Abdominal binder on pt. Around 0 pt removed abdominal binder and is refusing to wear it overnight. Extensive education provided to pt on importance of wearing abd binder. Pt continuing to refuse. Reinforced importance of using IS, pt states
understanding - pt needs further reinforcement. Pt c/o 7-9 out of [address] insertion site, villa PRN administered - see APR. SCDs on pt.
[2023-11-09] VITALS (8 sets, daily range): BP systolic 109–152; BP diastolic 59–94; BMI 23.1
--- NOTE | 2023-11-09 05:43 | PTCARENOTE ---
Pt agreeable to wearing abd binder now he is awake. Binder currently on.
[2023-11-09] MEDS: TYLENOL 1000 MG PO ×3 (06:06→22:44)
[2023-11-09] MEDS: ROXICODONE 5 MG PO ×4 (06:07→22:45)
--- NOTE | 2023-11-09 06:53 | W.PN.CT ---
Addendum entered and electronically signed by Alexis Corea MD 11/09/23 09:10:
I saw and examined the patient.
The PA's note was reviewed and I agree with the note.
Comment:
Postop day #4 status post robotic assisted left lower lobectomy, lymph node dissection, intercostal block
Doing well overall, left chest tube still with intermittent airleak and minor subcutaneous emphysema
Maintain chest tube today, placed to waterseal, repeat chest x-ray at noon
Check a.m. chest x-ray tomorrow
Patient was started on Amio for tachyarrhythmia, currently in sinus at 81
Out of bed I-S ambulate
Original Note:
Today's Communication / Plan
-
-pod #4
-L pleural CT on -10 sxn with +1 intermittent air leak.
-has subcutaneous emphysema at L anterior and lateral wall - binder is on
-encourage IS, OOB
Assessment / Plan
-
Assessment:
-S/P Robotic assisted thoracic surgery [RATS] left lower lobectomy/Radical lymph node dissection/Intercostal nerve block interspaces 4 through 8 with 5 cc of bupivacaine solution in each, by Dr. Livingston, 11/05/23, pod#4
-Left Lung Ca /Adenocarcinoma of LLL (3.2 cm)
-Asbestos exposure
-S/p bronch biopsy 09/26/23
-Tobacco Abuse (40 pk/yr, quit 2020)
-AAA S/P FEVAR 12/07/20
-HTN
-Hyperthyroidism
-BPH
-Vitamine D deficiency
-Varicose vein S/P stripping,
-Cellulitis
-Depression/Anxiety
-Sinus bradycardia
-Skin ca of Left shoulder S/P excision, 2006
-Acute postop NSVT (6 runs of PVC's), Asymptomatic
-Acute postop urinary retention, scanned for > 600 mL, torito orozco @ 2230 on 11/05 and d/c'd next morning
Discussed patient care with: Nursing and Care Team
Subjective
Procedure
S/P Robotic assisted thoracic surgery [RATS] left lower lobectomy/Radical lymph node dissection/Intercostal nerve block interspaces 4 through 8 with 5 cc of bupivacaine solution in each, by Dr. Livingston, 11/05/23
-
Date of Service: November 09, 2023
Objective Data
-
Lab Results
11/08/23 02:09
11/08/23 02:09
PT 13.9 Sec (11.4-14.6) 10/18/23 12:33
INR 1.06 10/18/23 12:33
APTT 35.3 Sec (23.4-35.0) H 10/18/23 12:33
Vital Signs
Vital Signs
Temp Pulse Resp BP Pulse Ox
98.7 F 69 18 138/91 94
11/08/23 23:20 11/08/23 23:20 11/08/23 23:20 11/08/23 23:20 11/09/23 00:23
CT Intake/Output/Weight
11/08/23 11/08/23 11/09/23
06:59 18:59 06:59
Intake Total 1000 / 1000
Output Total 1720 / 2850 94 / 94
Balance -1720 / -2850 906 / 906
SaO2: 94
Physical Exam
-
General: Awake and AOx3
Cardiovascular: Regular rate & rhythm
Respiratory: Decreased Breath Sounds (few crackles on on L. No wheeze b/l. Subcut. emphysema at L lateral and anterior chest wall)
Incision: Clean, Dry and Dressing Intact
Extremities: Edema +1 (b/l varicose veins of lower extremities)
Data Reviewed
-
Lab Results: Results Reviewed
Medications: Active Meds Reviewed
Chest X-Ray: Report Reviewed and Image Reviewed
ECG: Report Reviewed and Image Reviewed
[2023-11-09] MEDS: CORDARONE 518 MG IV (08:42)
[2023-11-09] MEDS: TOPROL XL 12.5 MG PO (08:45)
[2023-11-09] MEDS: ASPIR LOW (ENTERIC COATED) 81 MG PO (08:45)
[2023-11-09] MEDS: PACERONE 200 MG PO ×3 (08:45→22:44)
[2023-11-09] MEDS: HYZAAR 50-12.5 1 TAB PO (08:45)
[2023-11-09] MEDS: MUCINEX 1200 MG PO ×2 (08:45→20:45)
[2023-11-09] MEDS: VITAMIN D3 (cholecalciferol) 125 MCG PO (08:45)
[2023-11-09] MEDS: PLAVIX 75 MG PO (08:46)
[2023-11-09] MEDS: MIRALAX 17 GRAMS PO (08:46)
[2023-11-09] MEDS: SENOKOT 8.6 MG PO ×2 (08:46→20:46)
[2023-11-09] MEDS: HEPARIN 5000 UNITS SC ×3 (08:46→23:07)
[2023-11-09] MEDS: NEURONTIN 100 MG PO ×3 (08:46→22:44)
[2023-11-09] MEDS: LIDOCAINE 4% PATCH 1 PATCH TOPICAL (08:47)
[2023-11-09] MEDS: NORVASC 2.5 MG PO (09:23)
[2023-11-09] MEDS: DESENEX/MITRAZOL/ZEASORB 1 APPLIC TOPICAL ×2 (09:24→20:46)
--- NOTE | 2023-11-09 10:43 | PTCARENOTE ---
at 0617 patient had 27 beats of Vtach, asymptomatic according to night RN. Dr. Livingston on rounds, aware of ectopy, ordered IV amiodarone drip. new INT placed in left forearm as per protocol. IV amiodarone infusing at 0.5mg/min also dose of po
amiodarone given as ordered.patient CT is intact, crepitus noted under binder, CT was to 10cm suction but CVICU PA at 0930 switched to water seal and patient will obtain chest xray at noon today. lung lazaro rhonchi thruout, on RA o2 sat 94%,
strongly encouraged patient to use I/S. patient is mobile and gets in and out of bed, marcos. well.
--- NOTE | 2023-11-09 13:40 | PTCARENOTE ---
Addendum entered by Shelbi Hopkins RN 11/09/23 16:57:
patient is ordered another chest xray for 1700. CT remains off of suction, crepitus noted up to neck, binder on.
Original Note:
patient c/o left upper back pain, oxycodone hydrochloride 5 mg given as ordered.
--- NOTE | 2023-11-09 14:47 | CM ---
CM following for DC planning needs.
Met w/ patient at bedside. Pt. feels well, POD#4.
Reviewed DC plan for home w/ CT Transitional Care RN.
Of note, patient has no prescription plan. Any DC meds would need to be those that have a generic.
CM will cont. to follow.
[2023-11-09] MEDS: XANAX 0.5 MG PO ×2 (15:22→23:14)
--- NOTE | 2023-11-09 16:33 | PTCARENOTE ---
patient requested Xanax, po given as ordered.
--- NOTE | 2023-11-09 18:04 | PTCARENOTE ---
Addendum entered by Shelbi Hopkins RN 11/09/23 18:20:
CT to -15cm
Original Note:
Mervat SORTO SYSTEM CONSULTANT, was in room assessing crepitus, chest tube was put back to suction at 15cm. abd. wei remains on. chest xray completd at 1730.
[2023-11-09] MEDS: MAG-TAB SR 84 MG PO (18:24)
--- NOTE | 2023-11-09 18:28 | PTCARENOTE ---
patient c/o left upper back/ CT site pain, Roxicodone po given as ordered.
[2023-11-09] MEDS: FLOMAX 0.4 MG PO (22:44)
--- NOTE | 2023-11-10 00:20 | PTCARENOTE ---
Pt. rec'd at beginning of shift OOB in chair, AAOx3, VSS, NSR with frequent PVC's on the monitor. Left chest tube to suction -15 cm H2O, draining small amount of serosanguineous fluid. Site dressing CDI, crepitus present around site and in left
anterior/posterior shoulder. Lung sounds coarse with some rhonchi, pulse ox 98% RA. Oxycodone effective for CT site discomfort. Pt. ambulatory with steady gait, needs assist managing CT and IV pole with transferring. Amiodarone gtt infusing at
0.5 mg/min. Pt. currently sleeping.
[2023-11-10 03:52] VITALS: BP 117/77
[2023-11-10] MEDS: ROXICODONE 5 MG PO ×3 (03:55→22:23)
[2023-11-10 05:06] VITALS: BMI 23.3
--- NOTE | 2023-11-10 05:11 | W.PN.CT ---
Addendum entered and electronically signed by Alexis Corea MD 11/10/23 08:51:
I saw and examined the patient.
The PA's note was reviewed and I agree with the note.
Comment:
Postop day #5
Continued air leak present only on forced expiration
Maintain chest tube to -15 suction
Check daily chest x-rays, chest x-ray: No significant pneumothorax. Slightly increased subcutaneous emphysema, chest tube is in good position
Out of bed I-S, ambulate
Original Note:
Today's Communication / Plan
-
-pod #5
-drips: Amio 0.5
-L pleural CT on -15 sxn with +1 air leak with cough only
-increased subcutaneous emphysema at L anterior and lateral wall and L neck - binder is on
-follow daily CXR
-encourage IS, OOB
Assessment / Plan
-
Assessment:
-S/P Robotic assisted thoracic surgery [RATS] left lower lobectomy/Radical lymph node dissection/Intercostal nerve block interspaces 4 through 8 with 5 cc of bupivacaine solution in each, by Dr. Livingston, 11/05/23, pod#5
-Left Lung Ca /Adenocarcinoma of LLL (3.2 cm)
-Asbestos exposure
-S/p bronch biopsy 09/26/23
-Tobacco Abuse (40 pk/yr, quit 2020)
-AAA S/P FEVAR 12/07/20
-HTN
-Hyperthyroidism
-BPH
-Vitamine D deficiency
-Varicose vein S/P stripping,
-Cellulitis
-Depression/Anxiety
-Sinus bradycardia
-Skin ca of Left shoulder S/P excision, 2006
-Acute postop NSVT (6 runs of PVC's), Asymptomatic
-Acute postop urinary retention, scanned for > 600 mL, torito orozco @ 2230 on 11/05 and d/c'd next morning
Discussed patient care with: Nursing and Care Team
Subjective
Procedure
S/P Robotic assisted thoracic surgery [RATS] left lower lobectomy/Radical lymph node dissection/Intercostal nerve block interspaces 4 through 8 with 5 cc of bupivacaine solution in each, by Dr. Livingston, 11/05/23
-
Date of Service: November 10, 2023
Objective Data
-
Lab Results
11/08/23 02:09
11/08/23 02:09
PT 13.9 Sec (11.4-14.6) 10/18/23 12:33
INR 1.06 10/18/23 12:33
APTT Cancelled 11/09/23 11:40
Vital Signs
Vital Signs
Temp Pulse Resp BP Pulse Ox
98.5 F 66 20 117/77 95
11/10/23 03:55 11/10/23 05:00 11/10/23 03:55 11/10/23 03:52 11/10/23 03:[address]
CT Intake/Output/Weight
11/09/23 11/09/23 11/10/23
06:59 18:59 06:59
Intake Total 1320 / 2320 684 / 1364.4 680.4 / 1364.4
Output Total 0 / 0
Balance 1320 / 2226 684 / 1364.4 680.4 / 1364.4
SaO2: 95
Physical Exam
-
General: Awake and AOx3
Cardiovascular: Regular rate & rhythm and No Murmurs
Respiratory: Decreased Breath Sounds
Incision: Clean, Dry, Intact and Other (+ crepitus lateral and anterior chest and L side of neck)
Extremities: Other (trace edema (varicose veins))
Data Reviewed
-
Lab Results: Results Reviewed
Medications: Active Meds Reviewed
Chest X-Ray: Report Reviewed and Image Reviewed
[2023-11-10] MEDS: TYLENOL 1000 MG PO ×3 (06:17→22:19)
[2023-11-10 07:07] VITALS: BP 125/72
[2023-11-10] MEDS: NORVASC 2.5 MG PO (09:12)
[2023-11-10] MEDS: MUCINEX 1200 MG PO ×2 (09:12→19:29)
[2023-11-10] MEDS: NEURONTIN 100 MG PO ×3 (09:12→22:18)
[2023-11-10] MEDS: VITAMIN D3 (cholecalciferol) 125 MCG PO (09:13)
[2023-11-10] MEDS: TOPROL XL 25 MG PO (09:13)
[2023-11-10] MEDS: PACERONE 200 MG PO ×3 (09:13→22:18)
[2023-11-10] MEDS: HYZAAR 50-12.5 1 TAB PO (09:14)
[2023-11-10] MEDS: SENOKOT 8.6 MG PO ×2 (09:14→19:29)
[2023-11-10] MEDS: PLAVIX 75 MG PO (09:14)
[2023-11-10] MEDS: HEPARIN 5000 UNITS SC ×3 (09:15→23:14)
[2023-11-10] MEDS: DESENEX/MITRAZOL/ZEASORB 1 APPLIC TOPICAL ×2 (09:17→19:29)
[2023-11-10] MEDS: ASPIR LOW (ENTERIC COATED) 81 MG PO (09:20)
[2023-11-10] MEDS: MIRALAX 17 GRAMS PO (09:22)
[2023-11-10] MEDS: LIDOCAINE 4% PATCH 1 PATCH TOPICAL (09:22)
--- NOTE | 2023-11-10 10:00 | PTCARENOTE ---
Assumed care of pt from night RN. Pt received awake and alert, Ox3. VSS, CM shows NSR with monomorphic PVC's. Amiodarone drip D/C'd as ordered, site D/C'd per protocol. Pt remains on oral Amiodarone as per APR. Chest tube remains to 15 cm water
drainage, draining small amount of serosan fluid. Dr Croea in to see pt. Minimal air leak and crepitus noted. Abd binder on as ordered. Ambulating in room with CT without difficulty. Will continue to monitor.
[2023-11-10 11:15] VITALS: BP 113/80
[2023-11-10] MEDS: XANAX 0.5 MG PO ×2 (12:14→23:14)
--- NOTE | 2023-11-10 12:53 | PTCARENOTE ---
Roxicodone and Xanax given per MAR at pt's request.
[2023-11-10 16:22] VITALS: BP 99/64
[2023-11-10] MEDS: MAG-TAB SR 84 MG PO (18:00)
[2023-11-10 19:16] VITALS: BP 100/68
[2023-11-10 22:17] VITALS: BP 121/92
[2023-11-10] MEDS: FLOMAX 0.4 MG PO (22:18)
[2023-11-11] VITALS (7 sets, daily range): BP systolic 97–121; BP diastolic 61–76
--- NOTE | 2023-11-11 05:36 | W.PN.CT ---
Addendum entered and electronically signed by Alexis Corea MD 11/11/23 10:06:
I saw and examined the patient.
The PA's note was reviewed and I agree with the note.
Comment:
Postop day #6 status post robotic assisted left lower lobectomy, lymph node dissection
Airleak has resolved on suction, will transition to waterseal today
Check chest x-ray in a.m. tomorrow
Potential chest tube removal tomorrow
Original Note:
Today's Communication / Plan
-
-pod #6
-L pleural CT on -15 sxn now without airleak on cough/deep inspiration
-subcutaneous emphysema at L anterior and lateral wall and L neck - binder is on, appears stable on CXR today
-PO amio, metoprolol
-multimodal pain management (APAP, gabapentin, lido patch)
-Cont. asa/Plavix
-follow daily CXR
-encourage IS, OOB
Assessment / Plan
-
Assessment:
-S/P Robotic assisted thoracic surgery [RATS] left lower lobectomy/Radical lymph node dissection/Intercostal nerve block interspaces 4 through 8 with 5 cc of bupivacaine solution in each, by Dr. Livingston, 11/05/23, pod#6
-Left Lung Ca /Adenocarcinoma of LLL (3.2 cm)
-Asbestos exposure
-S/p bronch biopsy 09/26/23
-Tobacco Abuse (40 pk/yr, quit 2020)
-AAA S/P FEVAR 12/07/20
-HTN
-Hyperthyroidism
-BPH
-Vitamine D deficiency
-Varicose vein S/P stripping,
-Cellulitis
-Depression/Anxiety
-Sinus bradycardia
-Skin ca of Left shoulder S/P excision, 2006
-Acute postop NSVT (6 runs of PVC's), Asymptomatic
-Acute postop urinary retention, scanned for > 600 mL, torito lant @ 2230 on 11/05 and d/c'd next morning
Subjective
Procedure
S/P Robotic assisted thoracic surgery [RATS] left lower lobectomy/Radical lymph node dissection/Intercostal nerve block interspaces 4 through 8 with 5 cc of bupivacaine solution in each, by Dr. Livingston, 11/05/23
-
Date of Service: November 11, 2023
Objective Data
-
Lab Results
11/08/23 02:09
11/08/23 02:09
PT 13.9 Sec (11.4-14.6) 10/18/23 12:33
INR 1.06 10/18/23 12:33
APTT Cancelled 11/09/23 11:40
Vital Signs
Vital Signs
Temp Pulse Resp BP Pulse Ox
98.3 F 54 18 112/76 96
11/11/23 03:59 11/11/23 04:00 11/11/23 03:59 11/11/23 03:56 11/11/23 03:59
CT Intake/Output/Weight
11/10/23 11/10/23 11/11/23
06:59 18:59 06:59
Intake Total 680.4 / 1364.4 1060 / 1060
Output Total 40 / 40 140 / 140
Balance 640.4 / 1324.4 -140 / 920 1060 / 920
SaO2: 96
Physical Exam
-
General: Awake and Oriented
Cardiovascular: Regular rate & rhythm, No Murmurs and No Rub
Respiratory: Clear and Other (supraclavicular crepitus noted)
Extremities: No Edema and No Erythema
Data Reviewed
-
Lab Results: Results Reviewed
Medications: Active Meds Reviewed
Chest X-Ray: Report Reviewed and Image Reviewed
[2023-11-11] MEDS: TYLENOL 1000 MG PO ×2 (06:03→14:34)
--- NOTE | 2023-11-11 07:16 | PTCARENOTE ---
Pt.'s chest tube drained 80 ml SS fluid overnight. Crepitus still present left neck/anterior shoulder but improved from night before. Portable CXRY taken and pending.
[2023-11-11] MEDS: HEPARIN 5000 UNITS SC ×3 (08:32→23:26)
[2023-11-11] MEDS: TOPROL XL 25 MG PO (08:33)
[2023-11-11] MEDS: ASPIR LOW (ENTERIC COATED) 81 MG PO (08:33)
[2023-11-11] MEDS: NEURONTIN 100 MG PO ×3 (08:33→21:20)
[2023-11-11] MEDS: SENOKOT 8.6 MG PO ×2 (08:33→21:21)
[2023-11-11] MEDS: PACERONE 200 MG PO ×3 (08:34→21:20)
[2023-11-11] MEDS: MUCINEX 1200 MG PO ×2 (08:34→21:21)
[2023-11-11] MEDS: HYZAAR 50-12.5 1 TAB PO (08:34)
[2023-11-11] MEDS: MIRALAX 17 GRAMS PO (08:35)
[2023-11-11] MEDS: VITAMIN D3 (cholecalciferol) 125 MCG PO (08:35)
[2023-11-11] MEDS: NORVASC 2.5 MG PO (08:35)
[2023-11-11] MEDS: PLAVIX 75 MG PO (08:35)
[2023-11-11] MEDS: LIDOCAINE 4% PATCH 1 PATCH TOPICAL (08:35)
[2023-11-11] MEDS: DESENEX/MITRAZOL/ZEASORB 1 APPLIC TOPICAL ×2 (08:36→21:21)
--- NOTE | 2023-11-11 11:14 | PTCARENOTE ---
Assumed care of pt from night RN. Pt received awake and alert, Ox3. VSS, CM shows NSR/SB, POX 98% on RA. Dr. Corea in, CT placed to water seal drg, BS less coarse today with minimal crepitus noted to left upper chest. He denies any pain or
discomfort at this time, ambulating freely in room.
[2023-11-11] MEDS: ROXICODONE 5 MG PO ×2 (12:19→22:58)
[2023-11-11] MEDS: XANAX 0.5 MG PO ×2 (12:19→21:21)
[2023-11-11] MEDS: MAG-TAB SR 84 MG PO (17:26)
--- NOTE | 2023-11-11 20:05 | PTCARENOTE ---
Pt. received at change of shift. Pt. seen and assessed in room. Pt. AOx3, VS WNL. Chest tube at -15 suction, pt. wearing abd. binder at this time. Plan of care explained to patient. Pt. verbalizes understanding. Call piper within reach. Continuing to
monitor at this time.
[2023-11-11] MEDS: TYLENOL PO (21:20)
[2023-11-11] MEDS: FLOMAX 0.4 MG PO (21:20)
[2023-11-12] VITALS (8 sets, daily range): BP systolic 98–116; BP diastolic 66–87; BMI 22.6
--- NOTE | 2023-11-12 02:17 | PTCARENOTE ---
Received care of patient at 21:00. Tele monitor shows SR w/ occasional PVCs. Left lung throughout w/ crackles and rhonchi. Crepitus present. Left Chest tube site was hooked up to suction. Per chest tube orders patient should have been on NO suction.
Danis Sanchez SENIOR ANALYST DEVELOPER made aware and at bedside. Patient reports 'The Dr's said that if I have any SOB or pain that I could put myself back on suction'. Danis Sanchez SENIOR ANALYST DEVELOPER placed patient back onto waterseal. Patient educated to not touch or adjust Chest
Tube site and to call nursing staff if having any symptoms such as pain or SOB.
At approx 22:40 traci patient sitting on side of bed and complaining of pain at the surgical site. Rating it 8/10. C/o SOB and sating 96-99% RA. Danis Sanchez SENIOR ANALYST DEVELOPER made aware and at bedside. SENIOR ANALYST DEVELOPER placed CT site back on suction and at -20cm water and
reinforced dressing. Patient w/ +1 airleak. Xray obtained at bedside. PRN 5mg Roxicodone administered for pain--see APR. CT site draining serosanguineous fluid. POC ongoing. Call piper within reach.
--- NOTE | 2023-11-12 04:34 | PTCARENOTE ---
Patients last BM unknown. Patient denies feeling constipated. Bowel sounds + in all four quadrants, and soft upon palpation. Patient reports passing gas. This RN offered PRN medications to assist w/ having a bowel movement. Patient refused at this
time, and will notify nursing staff if he becomes uncomfortable. POC ongoing. CT remains at -20cm H20 wall suction. Call piper within reach.
--- NOTE | 2023-11-12 05:07 | W.PN.CT ---
Today's Communication / Plan
-
-pod #7
-Yesterday after CT placed to WS patient felt SOB and reattached his own atrium to suction, staff unaware. After this was found he was re-educated on changing his own device settings
-after the above he was placed back to water seal, then reported increase in pain/SOB ~90 min after. I found him to have increased distention of chest wall with increased crepitus and placed back to suction. Noted to have+5 leak for a few seconds,
then back to intermittent +1 leak. PCXR obtained, no PTX but increased subq air noted. Tegaderm dressing reinforced by me.
-L pleural CT on -20 sxn now with intermittent +1 air leak
-subcutaneous emphysema at L anterior and lateral wall and L neck - binder is on
-PO amio, metoprolol
-multimodal pain management (APAP, gabapentin, lido patch)
-Cont. asa/Plavix
-follow daily CXR
-encourage IS, OOB
Assessment / Plan
-
Assessment:
-S/P Robotic assisted thoracic surgery [RATS] left lower lobectomy/Radical lymph node dissection/Intercostal nerve block interspaces 4 through 8 with 5 cc of bupivacaine solution in each, by Dr. Livingston, 11/05/23, pod#7
-Left Lung Ca /Adenocarcinoma of LLL (3.2 cm)
-Asbestos exposure
-S/p bronch biopsy 09/26/23
-Tobacco Abuse (40 pk/yr, quit 2020)
-AAA S/P FEVAR 12/07/20
-HTN
-Hyperthyroidism
-BPH
-Vitamine D deficiency
-Varicose vein S/P stripping,
-Cellulitis
-Depression/Anxiety
-Sinus bradycardia
-Skin ca of Left shoulder S/P excision, 2006
-Acute postop NSVT (6 runs of PVC's), Asymptomatic
-Acute postop urinary retention, scanned for > 600 mL, ugarte reinsert @ 2230 on 11/05 and d/c'd next morning
Subjective
Procedure
S/P Robotic assisted thoracic surgery [RATS] left lower lobectomy/Radical lymph node dissection/Intercostal nerve block interspaces 4 through 8 with 5 cc of bupivacaine solution in each, by Dr. Livingston, 11/05/23
-
Date of Service: November 12, 2023
Objective Data
-
Lab Results
11/08/23 02:09
11/08/23 02:09
PT 13.9 Sec (11.4-14.6) 10/18/23 12:33
INR 1.06 10/18/23 12:33
APTT Cancelled 11/09/23 11:40
Vital Signs
Vital Signs
Temp Pulse Resp BP Pulse Ox
98.8 F 79 18 107/71 93
11/12/23 04:21 11/12/23 04:22 11/12/23 04:21 11/12/23 04:22 11/12/23 04:22
CT Intake/Output/Weight
11/11/23 11/11/23 11/12/23
06:59 18:59 06:59
Intake Total 1060 / 1060 480 / 480
Output Total 80 / 220
Balance 980 / 840 480 / 480
SaO2: 93
Physical Exam
-
General: Awake, Oriented and AOx3
Cardiovascular: Regular rate & rhythm, No Murmurs, No Rub and Other
Respiratory: Clear, Decreased Breath Sounds and Other (crepitus noted L anterior/posterior chest wall to L shoulder)
Incision: Clean and Dry
Extremities: No Edema
Data Reviewed
-
Lab Results: Results Reviewed
Medications: Active Meds Reviewed
Chest X-Ray: Report Reviewed and Image Reviewed
ECG: Report Reviewed
[2023-11-12] MEDS: TYLENOL 1000 MG PO ×3 (06:19→21:25)
[2023-11-12] MEDS: LIDOCAINE 4% PATCH TOPICAL (08:05)
[2023-11-12] MEDS: ROXICODONE 5 MG PO ×4 (09:16→23:31)
[2023-11-12] MEDS: XANAX 0.5 MG PO ×2 (09:16→21:25)
[2023-11-12] MEDS: MUCINEX 1200 MG PO ×2 (09:19→21:24)
[2023-11-12] MEDS: MIRALAX PO (09:20)
[2023-11-12] MEDS: ASPIR LOW (ENTERIC COATED) 81 MG PO (09:20)
[2023-11-12] MEDS: NEURONTIN 100 MG PO ×3 (09:21→21:25)
[2023-11-12] MEDS: VITAMIN D3 (cholecalciferol) 125 MCG PO (09:21)
[2023-11-12] MEDS: PACERONE 200 MG PO ×3 (09:21→21:24)
[2023-11-12] MEDS: PLAVIX 75 MG PO (09:22)
[2023-11-12] MEDS: SENOKOT 8.6 MG PO ×2 (09:22→21:25)
[2023-11-12] MEDS: HEPARIN 5000 UNITS SC ×3 (09:25→23:31)
[2023-11-12] MEDS: HYZAAR 50-12.5 1 TAB PO (09:30)
[2023-11-12] MEDS: TOPROL XL 25 MG PO (09:30)
[2023-11-12] MEDS: NORVASC 2.5 MG PO (09:33)
--- NOTE | 2023-11-12 09:49 | PTCARENOTE ---
Pt c/o L upper chest pain and L axillary pain, rated 6/10. Med with Roxicodone 5 mg PO as ordered. Pt also requesting Xanax for anxiety. Med with Xanax 0.5 mg po as ordered. He will be having a bedside procedure shortly by Dr Livingston.
--- NOTE | 2023-11-12 10:51 | CM ---
Chart reviewed. Patient is independent of ADLS, lives with his significant other, and mother in a 2 [address], 3 [facility], 0 [address]. Plan is for the patient to return home with CT Transitional RN. CM to follow
[2023-11-12] MEDS: XYLOCAINE 1% 20 ML INFIL (11:16)
[2023-11-12] MEDS: XYLOCAINE 1% 10 ML INFIL (11:17)
[2023-11-12] MEDS: DESENEX/MITRAZOL/ZEASORB 1 APPLIC TOPICAL ×2 (12:54→21:25)
[2023-11-12] MEDS: LIDOCAINE 4% PATCH 1 PATCH TOPICAL (12:58)
--- NOTE | 2023-11-12 13:05 | PTCARENOTE ---
Chest tube exchanged for larger size by Dr Livingston today. Dsg remains D+I. CT to -20cm water suction. Draining small amt ss drainage.
[2023-11-12] MEDS: MAG-TAB SR 84 MG PO (18:25)
[2023-11-12] MEDS: FLOMAX 0.4 MG PO (21:25)
[2023-11-13 04:48] VITALS: BP 120/79
--- NOTE | 2023-11-13 05:08 | PTCARENOTE ---
Left chest tube w/ 40cc of serosanguineous fluid overnight. Crepitus remains present throughout the left side. No air leak present at this time. Wound vac maintained. Patient ambulating self in room w/out difficulty. Tele rhythm shows Sinus
darrion-NSR. Pt w/ no bowel movement overnight. POC ongoing.
--- NOTE | 2023-11-13 05:42 | W.PN.CT ---
Today's Communication / Plan
-
Plan:
-Pt with improving SQ emphysema after undergoing 'zaragoza slit' with wound vac application and chest tube exchange/upsized yesterday 11/11
-Noted to have air leak only with deep inspiration and phonation. Chest tube drained 60/60
-Wound vac is intact
-Cannot appreciate a ptx on cxr, SQ emphysema is improving on my assessment. F/u official cxr report
-Received milk of mag for constipation
Assessment / Plan
-
Assessment:
-S/P Robotic assisted thoracic surgery [RATS] left lower lobectomy/Radical lymph node dissection/Intercostal nerve block interspaces 4 through 8 with 5 cc of bupivacaine solution in each, by Dr. Livingston, 11/05/23, pod#8
-Left Lung Ca /Adenocarcinoma of LLL (3.2 cm)
-Asbestos exposure
-S/p bronch biopsy 09/26/23
-Tobacco Abuse (40 pk/yr, quit 2020)
-AAA S/P FEVAR 12/07/20
-HTN
-Hyperthyroidism
-BPH
-Vitamine D deficiency
-Varicose vein S/P stripping,
-Cellulitis
-Depression/Anxiety
-Sinus bradycardia
-Skin ca of Left shoulder S/P excision, 2006
-Acute postop NSVT (6 runs of PVC's), Asymptomatic
-Acute postop urinary retention, scanned for > 600 mL, torito leonardsert @ 2230 on 11/05 and d/c'd next morning
Discussed patient care with: Cardiology, Nursing, Respiratory Therapy, Pharmacy and Care Team
Subjective
Procedure
S/P Robotic assisted thoracic surgery [RATS] left lower lobectomy/Radical lymph node dissection/Intercostal nerve block interspaces 4 through 8 with 5 cc of bupivacaine solution in each, by Dr. Livingston, 11/05/23
-
Date of Service: November 13, 2023
Pt c/o mild incisional pain and constipation
Objective Data
-
Lab Results
11/08/23 02:09
11/08/23 02:09
PT 13.9 Sec (11.4-14.6) 10/18/23 12:33
INR 1.06 10/18/23 12:33
APTT Cancelled 11/09/23 11:40
Vital Signs
Vital Signs
Temp Pulse Resp BP Pulse Ox
97.9 F 53 18 120/79 97
11/13/23 04:48 11/13/23 04:48 11/13/23 04:48 11/13/23 04:48 11/13/23 04:48
CT Intake/Output/Weight
11/12/23 11/12/23 11/13/23
06:59 18:59 06:59
Intake Total 480 / 480 480 / 480
Output Total 70 / 70 60 / 60
Balance 410 / 410 420 / 420
SaO2: 97 (RA)
Physical Exam
-
General: Awake, Oriented and AOx3
Cardiovascular: Regular rate & rhythm and No Murmurs
Respiratory: Decreased Breath Sounds
Sternum: Stable
Incision: Clean, Dry, Intact and Dressing Intact
Extremities: No Edema
Data Reviewed
-
Lab Results: Results Reviewed
Medications: Active Meds Reviewed
Chest X-Ray: Report Reviewed and Image Reviewed
ECG: Report Reviewed and Image Reviewed
[2023-11-13 06:00] VITALS: BMI 22.7
[2023-11-13] MEDS: ROXICODONE 5 MG PO ×3 (06:08→23:13)
[2023-11-13] MEDS: MILK OF MAGNESIA 30 ML PO (06:08)
[2023-11-13 07:57] VITALS: BP 105/67
[2023-11-13] MEDS: MIRALAX 17 GRAMS PO (08:21)
[2023-11-13] MEDS: MUCINEX 1200 MG PO ×2 (08:21→19:48)
[2023-11-13] MEDS: HYZAAR 50-12.5 1 TAB PO (08:22)
[2023-11-13] MEDS: NORVASC 2.5 MG PO (08:22)
[2023-11-13] MEDS: TOPROL XL 25 MG PO (08:23)
[2023-11-13] MEDS: NEURONTIN 100 MG PO ×3 (08:23→22:03)
[2023-11-13] MEDS: ASPIR LOW (ENTERIC COATED) 81 MG PO (08:23)
[2023-11-13] MEDS: SENOKOT 8.6 MG PO ×2 (08:23→19:48)
[2023-11-13] MEDS: VITAMIN D3 (cholecalciferol) 125 MCG PO (08:24)
[2023-11-13] MEDS: PACERONE 200 MG PO ×3 (08:24→22:03)
[2023-11-13] MEDS: PLAVIX 75 MG PO (08:24)
[2023-11-13] MEDS: TYLENOL 1000 MG PO ×3 (08:25→22:04)
[2023-11-13] MEDS: HEPARIN 5000 UNITS SC ×3 (08:26→23:52)
[2023-11-13] MEDS: LIDOCAINE 4% PATCH 1 PATCH TOPICAL (08:26)
[2023-11-13] MEDS: DESENEX/MITRAZOL/ZEASORB 1 APPLIC TOPICAL ×2 (08:27→19:48)
[2023-11-13 11:27] VITALS: BP 106/70
[2023-11-13] MEDS: XANAX 0.5 MG PO ×2 (12:54→22:03)
[2023-11-13] MEDS: DULCOLAX 10 MG RECTAL (14:44)
--- NOTE | 2023-11-13 15:07 | PTCARENOTE ---
Pt c/o abdominal discomfort after trying to eat. He is not sure if he's having 'gas pains'. Pt does not remember the last time he had a BM. His abdomen is distended, soft + BS. He says he is passing gas. Pt had milk of mag last night , miralax this
morning and has been receiving senna daily. Mervat Ren OIL SCOUT aware, will give dulcolax supp.
[2023-11-13 15:43] VITALS: BP 93/56
[2023-11-13] MEDS: MAG-TAB SR 84 MG PO (17:04)
[2023-11-13] MEDS: DULCOLAX 10 MG PO (17:59)
--- NOTE | 2023-11-13 18:14 | PTCARENOTE ---
Wound vac alarming possible blockage. Alicja Ren aware, will change set up.
[2023-11-13 18:44] VITALS: BP 103/76
[2023-11-13 21:59] VITALS: BP 108/79
[2023-11-13] MEDS: FLOMAX 0.4 MG PO (22:03)
--- NOTE | 2023-11-14 01:46 | PTCARENOTE ---
At approx 23:00 patients wound vac alarming blockage. There are no kinks in tubing at this time. Patient draining serosanguineous fluid. Yolanda HOYT PA made aware of alarm, and at bedside. No air leakage was found at this time. Seal check
performed. Wound Vac machine replaced w/ new machine. Despite new machine, alarm remains 'blockage alert'. Yolanda MULLER will reevaluate in AM
Chest tube site dressing intact and at -10cm to wall suction per order. CT draining serosanguineous fluid. Pt w/ crepitus from chest tube site and up to shoulders. No tidaling or air leak present at this time. Tele remains Sinus darrion-NSR w/
occasional PVCs.
[2023-11-14] MEDS: MYLICON 160 MG PO (02:01)
[2023-11-14 03:45] VITALS: BMI 22.8
[2023-11-14 03:48] VITALS: BP 128/69
[2023-11-14] MEDS: TYLENOL 1000 MG PO ×3 (06:06→22:09)
--- NOTE | 2023-11-14 06:29 | W.PN.CT ---
Today's Communication / Plan
-
-pod#9
-wound vac was exchanged last night 11/12 d/t blockage alarm. More 'blockage alarm' overnight- no kinks or blockages noted in the line
-L CT on -10 sxn, put out 30/100 in 12/24 hrs. Intermittent +1 air leak with deep breaths only. No air leak noted with talking or regular breaths.
-follow SQ emphysema, daily CXR
+bm after bowel meds on 11/12
Assessment / Plan
-
Assessment:
-S/P Robotic assisted thoracic surgery [RATS] left lower lobectomy/Radical lymph node dissection/Intercostal nerve block interspaces 4 through 8 with 5 cc of bupivacaine solution in each, by Dr. Livingston on 11/05/23, pod#9
-s/p placement of 'zaragoza slit' with wound vac application and chest tube exchange/upsized on 11/12/23
-Left Lung Ca /Adenocarcinoma of LLL (3.2 cm)
-Asbestos exposure
-S/p bronch biopsy 09/26/23
-Tobacco Abuse (40 pk/yr, quit 2020)
-AAA S/P FEVAR 12/07/20
-HTN
-Hyperthyroidism
-BPH
-Vitamine D deficiency
-Varicose vein S/P stripping,
-Cellulitis
-Depression/Anxiety
-Sinus bradycardia
-Skin ca of Left shoulder S/P excision, 2006
-Acute postop NSVT (6 runs of PVC's), Asymptomatic
-Acute postop urinary retention, scanned for > 600 mL, ugarte reinsert @ 2230 on 11/05 and d/c'd next morning
-Acute postop subcutaneous emphysema- s/p zaragoza slit and wound vac placement 11/12/23
Discussed patient care with: Nursing and Care Team
Subjective
Procedure
S/P Robotic assisted thoracic surgery [RATS] left lower lobectomy/Radical lymph node dissection/Intercostal nerve block interspaces 4 through 8 with 5 cc of bupivacaine solution in each, by Dr. Livingston, 11/05/23
-
Date of Service: November 14, 2023
Objective Data
-
Lab Results
11/08/23 02:09
11/08/23 02:09
PT 13.9 Sec (11.4-14.6) 10/18/23 12:33
INR 1.06 10/18/23 12:33
APTT Cancelled 11/09/23 11:40
Vital Signs
Vital Signs
Temp Pulse Resp BP Pulse Ox
98.8 F 60 18 108/79 99
11/13/23 22:02 11/13/23 22:03 11/13/23 22:02 11/13/23 22:03 11/13/23 22:02
CT Intake/Output/Weight
11/13/23 11/13/23 11/14/23
06:59 18:59 06:59
Intake Total 480 / 480
Output Total 110 / 110 95 / 95
Balance 370 / 370 -95 / -95
SaO2: 99
Physical Exam
-
General: Awake and AOx3
Cardiovascular: Regular rate & rhythm, No Murmurs and No Rub
Respiratory: Rales (in L lung, no wheeze. Clear decreased sounds in R lung)
Incision: Clean, Dry and Dressing Intact (wounds vac is in)
Extremities: Other (trace edema b/l)
Abdomen: soft, mildly distended, tympanic, + bowel sounds, some tenderness around incisions, + BM on 11/12
Data Reviewed
-
Lab Results: Results Reviewed
Medications: Active Meds Reviewed
Chest X-Ray: Report Reviewed and Image Reviewed
ECG: Report Reviewed and Image Reviewed
--- NOTE | 2023-11-14 08:00 | WOUNDNOTE ---
WOC RN note: Confirmed with CT RENZO Ren that the CT service will manage wound vac dressing changes. CT service can notify wound nurse if a home vac is needed to help with home vac paperwork.
[2023-11-14 08:15] VITALS: BP 103/70
[2023-11-14] MEDS: ROXICODONE 5 MG PO ×3 (08:29→19:51)
[2023-11-14] MEDS: XANAX 0.25 MG PO ×3 (08:40→20:29)
[2023-11-14] MEDS: ASPIR LOW (ENTERIC COATED) 81 MG PO (09:20)
[2023-11-14] MEDS: DESENEX/MITRAZOL/ZEASORB 1 APPLIC TOPICAL ×2 (09:20→19:51)
[2023-11-14] MEDS: LIDOCAINE 4% PATCH 1 PATCH TOPICAL (09:21)
[2023-11-14] MEDS: HYZAAR 50-12.5 1 TAB PO (09:21)
[2023-11-14] MEDS: NEURONTIN 100 MG PO ×3 (09:22→22:09)
[2023-11-14] MEDS: MIRALAX 17 GRAMS PO (09:22)
[2023-11-14] MEDS: MUCINEX 1200 MG PO ×2 (09:22→19:50)
[2023-11-14] MEDS: NORVASC 2.5 MG PO (09:22)
[2023-11-14] MEDS: VITAMIN D3 (cholecalciferol) 125 MCG PO (09:23)
[2023-11-14] MEDS: SENOKOT 8.6 MG PO ×2 (09:23→19:50)
[2023-11-14] MEDS: PLAVIX 75 MG PO (09:23)
[2023-11-14] MEDS: PACERONE 200 MG PO ×3 (09:23→22:09)
[2023-11-14] MEDS: TOPROL XL 25 MG PO (09:23)
[2023-11-14] MEDS: HEPARIN 5000 UNITS SC ×3 (09:24→23:40)
[2023-11-14] MEDS: FLEXERIL 5 MG PO ×2 (09:31→23:41)
--- NOTE | 2023-11-14 10:09 | PTCARENOTE ---
Received patient this morning resting in bed. Given oxycodone for pain at CT site and requested lesser dose of prn xanax, spoke to CT surgery CHILD AND ADOLESCENT PSYCHOLOGIST and dosage changed. CT surgery attempted to discontinue suction from CT however patient immediately had
increased severity of his pain, with crepitus from upper left back to neck, abdomen and upper arm, standing at the bedside and unable to get comfortable. Notified Shane Ren CHILD AND ADOLESCENT PSYCHOLOGIST immediately and CT placed to -10cm suction with relief. CT surgery CHILD AND ADOLESCENT PSYCHOLOGIST in to
see the patient again. CT placed to heimlich valve and remains to pleurovac with suction set at -10cm. Patient agreeable to wear abdominal binder, medicated for discomfort with flexeril PO. Trying to nap now, appears more comfortable, call piper in
reach.
--- NOTE | 2023-11-14 10:51 | PTCARENOTE ---
Wound vac not functioning throughout the night and continued to alarm blockage. Wound vac was removed this morning by Shane Ren NP and dressing placed.
--- NOTE | 2023-11-14 11:00 | WOUNDNOTE ---
[facility] RN Note: Spoke with RN Swapna who stated patient's wound vac pump was swapped out last night d/t 'blockage' and earlier this am, the CT PA removed the 2nd vac pump d/t alarm. Swapna stated there is not plan for another vac application as far as
she knows. Notified [employer] via [email or web address] of the 2 rental pump on date and off dates and for turkey picker of rental vac ulta pumps in IVU soiled utility room (turkey picker work order #[id number] for serial #[id number]; turkey picker work order #[id number] for serial
#[id number]).
[2023-11-14 12:14] VITALS: BP 99/51
[2023-11-14 15:57] VITALS: BP 100/73
[2023-11-14] MEDS: MAG-TAB SR 84 MG PO (17:20)
--- NOTE | 2023-11-14 18:12 | PTCARENOTE ---
Patient called nurse, standing at the bedside holding chest tube, had disconnected from proximal to heimlich valve but below zip tie. Reconnected tube to drainage tube to pleurovac, suction still on. Patient had knocked over pleurovac and water seal
chamber with blood from drainage chamber. New pleurovac switched, remains on 10cm wall suction. Notified Shane Ren NP of what happened and she came and assessed the patient. Attachment further secured to prevent this dislodging again, will monitor
closely, patient comfortable and without complaints.
[2023-11-14 19:16] VITALS: BP 129/80
[2023-11-14 22:08] VITALS: BP 102/63
[2023-11-14] MEDS: FLOMAX 0.4 MG PO (22:09)
[2023-11-15] VITALS (7 sets, daily range): BP systolic 96–125; BP diastolic 60–71; BMI 22.9
--- NOTE | 2023-11-15 02:14 | PTCARENOTE ---
Pt received start of shift, HR SR. Chest tube connected to wall suction, -10cm scution. Serosanguineous drainage. No air leak observed. Pt reports large BM. 7-8/10 pain in L back and L chest. PRN Becca administered - see APR. Pt continues to be
slightly anxious. PRN xanax administered - see APR. Educated pt and significant other on plan of care. Pt states understanding. Reinforced importance of keeping pleurovac upright and moving carefully while CT is still in. Reinforced purpose of
abdominal binder.
--- NOTE | 2023-11-15 06:04 | W.PN.CT ---
Today's Communication / Plan
-
-pod #10
-no significant issues overnight
-Heimlich valve placed on 11/13 and hooked to suction after failing water seal
-L pleur CT on -10 suction. No air leak noted with either regular or deep breathing or phonation
-follow daily CXR
-follow SQ emphysema
Assessment / Plan
-
Assessment:
-S/P Robotic assisted thoracic surgery [RATS] left lower lobectomy/Radical lymph node dissection/Intercostal nerve block interspaces 4 through 8 with 5 cc of bupivacaine solution in each, by Dr. Livingston on 11/05/23, pod#10
-s/p placement of 'zaragoza slit' with wound vac application and chest tube exchange/upsized on 11/12/23- wound vac dcd 11/13 d/t continued blockage alarm
-Heimlich valve placed on 11/13 and hooked to suction after failing water seal.
-Left Lung Ca /Adenocarcinoma of LLL (3.2 cm)
-Asbestos exposure
-S/p bronch biopsy 09/26/23
-Tobacco Abuse (40 pk/yr, quit 2020)
-AAA S/P FEVAR 12/07/20
-HTN
-Hyperthyroidism
-BPH
-Vitamine D deficiency
-Varicose vein S/P stripping,
-Cellulitis
-Depression/Anxiety
-Sinus bradycardia
-Skin ca of Left shoulder S/P excision, 2006
-Acute postop NSVT (6 runs of PVC's), Asymptomatic
-Acute postop urinary retention, scanned for > 600 mL, torito reinsert @ 2230 on 11/05 and d/c'd next morning
-Acute postop subcutaneous emphysema- s/p zaragoza slit and wound vac placement 11/12/23- d/cd on 11/13
Discussed patient care with: Nursing and Care Team
Subjective
Procedure
S/P Robotic assisted thoracic surgery [RATS] left lower lobectomy/Radical lymph node dissection/Intercostal nerve block interspaces 4 through 8 with 5 cc of bupivacaine solution in each, by Dr. Livingston, 11/05/23
-
Date of Service: November 15, 2023
Objective Data
-
Lab Results
11/08/23 02:09
11/08/23 02:09
PT 13.9 Sec (11.4-14.6) 10/18/23 12:33
INR 1.06 10/18/23 12:33
APTT Cancelled 11/09/23 11:40
Vital Signs
Vital Signs
Temp Pulse Resp BP Pulse Ox
98.0 F 55 20 102/63 100
11/14/23 22:19 11/15/23 02:00 11/14/23 22:19 11/14/23 22:09 11/14/23 22:19
CT Intake/Output/Weight
11/14/23 11/14/23 11/15/23
06:59 18:59 06:59
Intake Total 600 / 600 1440 / 2400 960 / 2400
Output Total 30 / 125
Balance 570 / 475 1440 / 2400 960 / 2400
SaO2: 100
Physical Exam
-
General: Awake and AOx3
Cardiovascular: Regular rate & rhythm, No Murmurs and No Rub
Respiratory: Decreased Breath Sounds (crackles in L lung, decreased b/l)
Incision: Clean, Dry, Dressing Intact and Other (wound vac is out)
Extremities: No Edema
Data Reviewed
-
Lab Results: Results Reviewed
Medications: Active Meds Reviewed
Chest X-Ray: Report Reviewed and Image Reviewed
ECG: Report Reviewed and Image Reviewed
[2023-11-15] MEDS: TYLENOL 1000 MG PO ×3 (06:21→22:44)
[2023-11-15] MEDS: PLAVIX 75 MG PO (08:33)
[2023-11-15] MEDS: PACERONE 200 MG PO ×3 (08:33→22:44)
[2023-11-15] MEDS: SENOKOT 8.6 MG PO (08:33)
[2023-11-15] MEDS: MUCINEX 1200 MG PO ×2 (08:33→19:43)
[2023-11-15] MEDS: NEURONTIN 100 MG PO ×3 (08:34→22:44)
[2023-11-15] MEDS: VITAMIN D3 (cholecalciferol) 125 MCG PO (08:34)
[2023-11-15] MEDS: ASPIR LOW (ENTERIC COATED) 81 MG PO (08:34)
[2023-11-15] MEDS: HYZAAR 50-12.5 1 TAB PO (08:34)
[2023-11-15] MEDS: TOPROL XL 25 MG PO (08:34)
[2023-11-15] MEDS: HEPARIN 5000 UNITS SC ×3 (08:35→23:16)
[2023-11-15] MEDS: LIDOCAINE 4% PATCH 1 PATCH TOPICAL (08:36)
[2023-11-15] MEDS: MIRALAX PO (08:37)
[2023-11-15] MEDS: DESENEX/MITRAZOL/ZEASORB 1 APPLIC TOPICAL ×2 (08:47→19:45)
--- NOTE | 2023-11-15 09:26 | PTCARENOTE ---
Rec'd pt this shift awake and alert in bed. Pt with Left chest pleural chest tube to -10cm wall suction. No air leak noted. Pt denies SOB, denies pain at this time. AM meds given. See worklist for VS/I and O and assessments.
[2023-11-15] MEDS: NORVASC 2.5 MG PO (10:41)
[2023-11-15] MEDS: ROXICODONE 5 MG PO ×3 (11:26→20:24)
[2023-11-15] MEDS: XANAX 0.25 MG PO ×2 (11:26→18:11)
--- NOTE | 2023-11-15 13:31 | CM ---
CM following for DC planning needs.
Met w/ patient at bedside. Pt. reports that he is feeling improved today.
DC plan remains for home w/ CT Transitional Care RN.
Will cont. to follow.
--- NOTE | 2023-11-15 17:03 | PTCARENOTE ---
Pt ambulating in room without difficulty. Denies sob. Pt medicated with Oxycodone for pain as needed. Chest tube remains to -10cm wall suction. No air leak noted.
[2023-11-15] MEDS: MAG-TAB SR 84 MG PO (18:11)
[2023-11-15] MEDS: SENOKOT PO (19:44)
[2023-11-15] MEDS: FLOMAX 0.4 MG PO (22:44)
[2023-11-15] MEDS: FLEXERIL 5 MG PO (23:15)
[2023-11-16] MEDS: XANAX 0.25 MG PO ×4 (00:30→21:44)
[2023-11-16] MEDS: ROXICODONE 5 MG PO ×4 (00:30→21:44)
--- NOTE | 2023-11-16 01:35 | PTCARENOTE ---
Pt received start of shift, HR SR. Chest tube connected to wall suction, -10cm. no air leak observed. Pt rating pain at chest tube insertion site 6-8 out of 10. PRN Becca administered - see APR. Pt requesting xanax for anxiety, PRN dose administered
- see APR. VSS.
[2023-11-16] MEDS: TYLENOL 1000 MG PO ×3 (05:15→21:43)
[2023-11-16 05:20] VITALS: BP 96/66
[2023-11-16 05:28] VITALS: BMI 22.6
--- NOTE | 2023-11-16 05:54 | W.PN.CT ---
Today's Communication / Plan
-
-pod #11
-no significant issues overnight, changed dressing at CT site
-Heimlich valve placed on 11/13 and hooked to suction after failing water seal
-L pleur CT on -10 suction. +1 air leak noted with either deep breathing or phonation
-follow daily CXR
-follow SQ emphysema
Assessment / Plan
-
Assessment:
-S/P Robotic assisted thoracic surgery [RATS] left lower lobectomy/Radical lymph node dissection/Intercostal nerve block interspaces 4 through 8 with 5 cc of bupivacaine solution in each, by Dr. Livingston on 11/05/23, pod#11
-s/p placement of 'zaragoza slit' with wound vac application and chest tube exchange/upsized on 11/12/23- wound vac dcd 11/13 d/t continued blockage alarm
-Heimlich valve placed on 11/13 and hooked to suction after failing water seal.
-Left Lung Ca /Adenocarcinoma of LLL (3.2 cm)
-Asbestos exposure
-S/p bronch biopsy 09/26/23
-Tobacco Abuse (40 pk/yr, quit 2020)
-AAA S/P FEVAR 12/07/20
-HTN
-Hyperthyroidism
-BPH
-Vitamine D deficiency
-Varicose vein S/P stripping,
-Cellulitis
-Depression/Anxiety
-Sinus bradycardia
-Skin ca of Left shoulder S/P excision, 2006
-Acute postop NSVT (6 runs of PVC's), Asymptomatic
-Acute postop urinary retention, scanned for > 600 mL, torito lant @ 2230 on 11/05 and d/c'd next morning
-Acute postop subcutaneous emphysema- s/p zaragoza slit and wound vac placement 11/12/23- d/cd on 11/13
Discussed patient care with: Nursing and Care Team
Subjective
Procedure
S/P Robotic assisted thoracic surgery [RATS] left lower lobectomy/Radical lymph node dissection/Intercostal nerve block interspaces 4 through 8 with 5 cc of bupivacaine solution in each, by Dr. Livingston, 11/05/23
-
Date of Service: November 16, 2023
Objective Data
-
Lab Results
11/08/23 02:09
11/08/23 02:09
PT 13.9 Sec (11.4-14.6) 10/18/23 12:33
INR 1.06 10/18/23 12:33
APTT Cancelled 11/09/23 11:40
Vital Signs
Vital Signs
Temp Pulse Resp BP Pulse Ox
98.2 F 63 20 96/66 98
11/16/23 05:20 11/16/23 05:20 11/16/23 05:20 11/16/23 05:20 11/16/23 05:[address]
CT Intake/Output/Weight
11/15/23 11/15/23 11/16/23
06:59 18:59 06:59
Intake Total 960 / 2400 1750 / 1750
Output Total 50 / 88 38 / 88
Balance 937 / 2377 1700 / 1662 -38 / 1662
SaO2: 98
Physical Exam
-
General: Awake and AOx3
Cardiovascular: Regular rate & rhythm, No Murmurs and No Rub
Respiratory: Decreased Breath Sounds (crackles in L lung, decreased b/l)
Incision: Clean, Dry, Dressing Intact and Other (wound vac is out)
Extremities: No Edema
Data Reviewed
-
Lab Results: Results Reviewed
Medications: Active Meds Reviewed
Chest X-Ray: Report Reviewed and Image Reviewed
[2023-11-16 08:26] VITALS: BP 110/66
[2023-11-16] MEDS: LIDOCAINE 4% PATCH 1 PATCH TOPICAL (08:40)
[2023-11-16] MEDS: NORVASC 2.5 MG PO (10:15)
[2023-11-16] MEDS: TOPROL XL 25 MG PO (10:16)
[2023-11-16] MEDS: HYZAAR 50-12.5 1 TAB PO (10:16)
[2023-11-16] MEDS: ASPIR LOW (ENTERIC COATED) 81 MG PO (10:16)
[2023-11-16] MEDS: MUCINEX 1200 MG PO ×2 (10:16→20:58)
[2023-11-16] MEDS: NEURONTIN 100 MG PO ×3 (10:16→21:44)
[2023-11-16] MEDS: PACERONE 200 MG PO ×3 (10:16→21:44)
[2023-11-16] MEDS: VITAMIN D3 (cholecalciferol) 125 MCG PO (10:17)
[2023-11-16] MEDS: PLAVIX 75 MG PO (10:17)
[2023-11-16] MEDS: SENOKOT PO ×2 (10:17→20:58)
[2023-11-16] MEDS: MIRALAX PO (10:17)
[2023-11-16] MEDS: DESENEX/MITRAZOL/ZEASORB 1 APPLIC TOPICAL ×2 (10:19→20:58)
[2023-11-16] MEDS: HEPARIN 5000 UNITS SC ×3 (11:42→23:10)
--- NOTE | 2023-11-16 11:50 | CM ---
CM following for DC planning needs.
Met w/ patient at bedside. Pt. reports that he is feeling well.
DC plan remains for home w/ CT Transitional Care RN.
CM to cont. to follow for DC planning needs.
[2023-11-16 11:53] VITALS: BP 100/65
[2023-11-16 15:25] VITALS: BP 104/68
[2023-11-16 17:02] VITALS: BP 117/69
[2023-11-16] MEDS: MAG-TAB SR 84 MG PO (17:58)
--- NOTE | 2023-11-16 19:39 | PTCARENOTE ---
Pt's pleur-evac drainage contained swapped out for a heimlich valve and connected to ugarte bag. Pt developed increasing left ACW pain, rated as 8 out of 10. Roxycodone and xanax given. CV PA notified. Pleur-evac reconnected to left, lateral chest
tube by PA. Pt relieved of chest discomfort. Will monitor.
[2023-11-16] MEDS: FLOMAX 0.4 MG PO (21:43)
[2023-11-16 22:38] VITALS: BP 105/68
[2023-11-16] MEDS: FLEXERIL 5 MG PO (22:42)
--- NOTE | 2023-11-17 00:38 | PTCARENOTE ---
Pt received start of shift, HRSR. Chest tube conneted to wall suction, -10cm set on pleurovac. Pt c/o 6-7 out of 10 pain at chest tube site. PRN pain management - see MAR. Pt continues to feel anxious about having the chest tube in for so long,
states he 'just wants to get outside again'. Comforted pt. Updated pt on plan of care, pt states understanding. Reinforced education w/ pt in regard to crepitus.
[2023-11-17 05:35] VITALS: BP 114/74
[2023-11-17] MEDS: TYLENOL 1000 MG PO ×3 (05:35→21:25)
[2023-11-17 06:00] VITALS: BMI 23.0
--- NOTE | 2023-11-17 08:34 | W.PN.CT ---
Today's Communication / Plan
-
-No major issues overnight. Hemodynamically intact
-Chest tube is connected to a Heimlich valve and on -10 cm H2O wall suction, cannot appreciate an air leak this AM
-SQ emphysema appears slightly increased on right neck on my review, f/u official report
-Will discuss chest tube to suction another day
-OOB into chair/Ambulate
Assessment / Plan
-
Assessment:
-S/P Robotic assisted thoracic surgery [RATS] left lower lobectomy/Radical lymph node dissection/Intercostal nerve block interspaces 4 through 8 with 5 cc of bupivacaine solution in each, by Dr. Livingston on 11/05/23, pod#12
-s/p placement of 'zaragoza slit' with wound vac application and chest tube exchange/upsized on 11/12/23- wound vac dcd 11/13 d/t continued blockage alarm
-Heimlich valve placed on 11/13 and hooked to suction after failing water seal.
-Left Lung Ca /Adenocarcinoma of LLL (3.2 cm)
-Asbestos exposure
-S/p bronch biopsy 09/26/23
-Tobacco Abuse (40 pk/yr, quit 2020)
-AAA S/P FEVAR 12/07/20
-HTN
-Hyperthyroidism
-BPH
-Vitamine D deficiency
-Varicose vein S/P stripping,
-Cellulitis
-Depression/Anxiety
-Sinus bradycardia
-Skin ca of Left shoulder S/P excision, 2006
-Acute postop NSVT (6 runs of PVC's), Asymptomatic
-Acute postop urinary retention, scanned for > 600 mL, torito orozco @ 2230 on 11/05 and d/c'd next morning
-Acute postop subcutaneous emphysema- s/p zaragoza slit and wound vac placement 11/12/23- d/cd on 11/13
Discussed patient care with: Cardiology, Nursing, Respiratory Therapy, Pharmacy and Care Team
Subjective
Procedure
S/P Robotic assisted thoracic surgery [RATS] left lower lobectomy/Radical lymph node dissection/Intercostal nerve block interspaces 4 through 8 with 5 cc of bupivacaine solution in each, by Dr. Livingston, 11/05/23
-
Date of Service: November 17, 2023
Pt c/o incisional pain otherwise feels well
Objective Data
-
Lab Results
11/08/23 02:09
11/08/23 02:09
PT 13.9 Sec (11.4-14.6) 10/18/23 12:33
INR 1.06 10/18/23 12:33
APTT Cancelled 11/09/23 11:40
Vital Signs
Vital Signs
Temp Pulse Resp BP Pulse Ox
98.1 F 54 18 114/74 95
11/17/23 05:35 11/17/23 06:00 11/17/23 05:35 11/17/23 05:35 11/17/23 05:35
CT Intake/Output/Weight
11/16/23 11/17/23 11/17/23
18:59 06:59 18:59
Intake Total 1200 / 1200
Output Total 15 / 15 43 / 43
Balance -15 / 1185 1200 / 1185 -43 / -43
SaO2: 95 (RA)
Physical Exam
-
General: Awake, Oriented and AOx3
Cardiovascular: Regular rate & rhythm, No Murmurs and No Rub
Respiratory: Decreased Breath Sounds
Sternum: Stable
Incision: Clean, Dry, Intact and Dressing Intact
Extremities: No Edema
Data Reviewed
-
Lab Results: Results Reviewed
Medications: Active Meds Reviewed
Chest X-Ray: Report Reviewed and Image Reviewed
ECG: Report Reviewed and Image Reviewed
[2023-11-17 08:42] VITALS: BP 104/56
[2023-11-17] MEDS: ASPIR LOW (ENTERIC COATED) 81 MG PO (09:19)
[2023-11-17] MEDS: DESENEX/MITRAZOL/ZEASORB 1 APPLIC TOPICAL ×2 (09:20→19:58)
[2023-11-17] MEDS: HYZAAR 50-12.5 1 TAB PO (09:21)
[2023-11-17] MEDS: HEPARIN 5000 UNITS SC ×3 (09:21→23:25)
[2023-11-17] MEDS: MUCINEX 1200 MG PO ×2 (09:22→20:02)
[2023-11-17] MEDS: MIRALAX PO (09:22)
[2023-11-17] MEDS: LIDOCAINE 4% PATCH 1 PATCH TOPICAL (09:22)
[2023-11-17] MEDS: TOPROL XL 25 MG PO (09:23)
[2023-11-17] MEDS: SENOKOT PO ×2 (09:23→19:59)
[2023-11-17] MEDS: PLAVIX 75 MG PO (09:23)
[2023-11-17] MEDS: NORVASC 2.5 MG PO (09:23)
[2023-11-17] MEDS: PACERONE 200 MG PO ×3 (09:23→21:25)
[2023-11-17] MEDS: NEURONTIN 100 MG PO ×3 (09:23→21:25)
[2023-11-17] MEDS: ROXICODONE 5 MG PO (09:24)
[2023-11-17] MEDS: VITAMIN D3 (cholecalciferol) 125 MCG PO (09:24)
[2023-11-17] MEDS: XANAX 0.25 MG PO ×3 (09:24→23:24)
--- NOTE | 2023-11-17 10:52 | PTCARENOTE ---
Received patient at shift change. Chest tube in place, connected to wall suction at -20. Crepitus starting at chest tube site all the way up to neck, unchanged from previous shift. Pt complaints of 9/10 pain in left back, Becca given as per APR. Pt
found relief, pain 5/10 now. SB on the monitor, HR In the 50s. Educated patient on restricting fluid intake and plan of care. Patient verbalized understanding. Call piper within reach.
[2023-11-17 12:11] VITALS: BP 112/76
[2023-11-17 15:09] VITALS: BP 102/69
[2023-11-17] MEDS: ROXICODONE 2.5 MG PO ×2 (17:23→21:26)
[2023-11-17] MEDS: MAG-TAB SR 84 MG PO (17:24)
[2023-11-17 19:57] VITALS: BP 105/67
[2023-11-17 22:34] VITALS: BP 101/65
[2023-11-17] MEDS: FLOMAX 0.4 MG PO (23:24)
[2023-11-18] VITALS (8 sets, daily range): BP systolic 89–123; BP diastolic 51–77; BMI 23.0
[2023-11-18] MEDS: TYLENOL 1000 MG PO ×3 (05:28→22:20)
[2023-11-18 05:35] LABS: Hematocrit 33.7 % (39.0-52.0); Mean Corp Hgb Conc. 35.6 g/dL (33.0-37.0); Mean Corpuscular Hgb 31.3 pg (27.0-31.0); Mean Corpuscular Volume 87.8 fL (80.0-94.0); Mean Platelet Volume 9.4 fL (7.4-10.4); Platelet Count 310 10^3/uL (130-400); Red Blood Cell Count 3.84 10^6/uL (4.70-6.10); Red Cell Dist. Width 13.8 % (11.5-14.5)
[2023-11-18 06:07] LABS: Blood Urea Nitrogen 16 mg/dl (9-20); Calcium 9.2 mg/dl (8.4-10.2); Carbon Dioxide 25 mmol/L (22-30); Chloride 102 mmol/L (98-107); Estimated Creatinine Clearance 67 ml/min; Glucose 87 mg/dl (70-99); Potassium 4.4 mmol/L (3.5-5.1); Sodium 136 mmol/L (135-145); eGFR > 60.00
--- NOTE | 2023-11-18 06:09 | W.PN.CT ---
Today's Communication / Plan
-
-No major issues overnight. Hemodynamically intact
-Chest tube is connected to a Heimlich valve and on -20 cm H2O wall suction
-Tiny left apical ptx from yesterday appears to have resolved on cxr this AM on my review, SQ emphysema appears unchanged, f/u official report
-Will discuss chest tube to suction another day
-OOB into chair/Ambulate
Assessment / Plan
-
Assessment:
-S/P Robotic assisted thoracic surgery [RATS] left lower lobectomy/Radical lymph node dissection/Intercostal nerve block interspaces 4 through 8 with 5 cc of bupivacaine solution in each, by Dr. Livingston on 11/05/23, pod#13
-s/p placement of 'zaragoza slit' with wound vac application and chest tube exchange/upsized on 11/12/23- wound vac dcd 11/13 d/t continued blockage alarm
-Heimlich valve placed on 11/13 and hooked to suction after failing water seal.
-Left Lung Ca /Adenocarcinoma of LLL (3.2 cm)
-Asbestos exposure
-S/p bronch biopsy 09/26/23
-Tobacco Abuse (40 pk/yr, quit 2020)
-AAA S/P FEVAR 12/07/20
-HTN
-Hyperthyroidism
-BPH
-Vitamine D deficiency
-Varicose vein S/P stripping,
-Cellulitis
-Depression/Anxiety
-Sinus bradycardia
-Skin ca of Left shoulder S/P excision, 2006
-Acute postop NSVT (6 runs of PVC's), Asymptomatic
-Acute postop urinary retention, scanned for > 600 mL, torito orozco @ 2230 on 11/05 and d/c'd next morning
-Acute postop subcutaneous emphysema- s/p zaragoza slit and wound vac placement 11/12/23- d/cd on 11/13
Discussed patient care with: Cardiology, Nursing, Respiratory Therapy and Care Team
Subjective
Procedure
S/P Robotic assisted thoracic surgery [RATS] left lower lobectomy/Radical lymph node dissection/Intercostal nerve block interspaces 4 through 8 with 5 cc of bupivacaine solution in each, by Dr. Livingston, 11/05/23
-
Date of Service: November 18, 2023
c/o mild incisional pain, otherwise feels well
Objective Data
-
Lab Results
11/18/23 05:25
11/18/23 05:25
PT 13.9 Sec (11.4-14.6) 10/18/23 12:33
INR 1.06 10/18/23 12:33
APTT Cancelled 11/09/23 11:40
Vital Signs
Vital Signs
Temp Pulse Resp BP Pulse Ox
98.4 F 55 20 97/54 96
11/18/23 04:00 11/18/23 05:21 11/18/23 04:00 11/18/23 05:21 11/18/23 05:21
CT Intake/Output/Weight
11/17/23 11/17/23 11/18/23
06:59 18:59 06:59
Intake Total 1200 / 1200 548 / 548
Output Total 43 / 43
Balance 1200 / 1185 505 / 505
SaO2: 96 (RA)
Physical Exam
-
General: Awake, Oriented and AOx3
Cardiovascular: Regular rate & rhythm and No Murmurs
Respiratory: Decreased Breath Sounds
Incision: Clean, Dry, Intact and Dressing Intact
Extremities: No Edema
Data Reviewed
-
Lab Results: Results Reviewed
Medications: Active Meds Reviewed
Chest X-Ray: Report Reviewed and Image Reviewed
ECG: Report Reviewed and Image Reviewed
[2023-11-18] MEDS: MUCINEX 1200 MG PO ×2 (09:04→19:24)
[2023-11-18] MEDS: HYZAAR 50-12.5 1 TAB PO (09:04)
[2023-11-18] MEDS: PLAVIX 75 MG PO (09:05)
[2023-11-18] MEDS: NEURONTIN 100 MG PO ×3 (09:05→22:20)
[2023-11-18] MEDS: NORVASC 2.5 MG PO (09:05)
[2023-11-18] MEDS: TOPROL XL 25 MG PO (09:06)
[2023-11-18] MEDS: PACERONE 200 MG PO ×3 (09:06→22:19)
[2023-11-18] MEDS: VITAMIN D3 (cholecalciferol) 125 MCG PO (09:06)
[2023-11-18] MEDS: ASPIR LOW (ENTERIC COATED) 81 MG PO (09:06)
[2023-11-18] MEDS: SENOKOT PO (09:06)
[2023-11-18] MEDS: LIDOCAINE 4% PATCH 1 PATCH TOPICAL (09:07)
[2023-11-18] MEDS: HEPARIN 5000 UNITS SC ×3 (09:07→23:05)
[2023-11-18] MEDS: DESENEX/MITRAZOL/ZEASORB 1 APPLIC TOPICAL ×2 (09:07→19:24)
[2023-11-18] MEDS: MIRALAX PO (09:07)
[2023-11-18] MEDS: ROXICODONE 5 MG PO (10:01)
[2023-11-18] MEDS: XANAX 0.5 MG PO ×2 (11:03→19:25)
[2023-11-18] MEDS: MAG-TAB SR 84 MG PO (15:19)
--- NOTE | 2023-11-18 19:11 | PTCARENOTE ---
pt continues to be sr on the monitor, vss. pt offers no complaints at this time. chest tube in place, crepitus continues to be around site, abd, left arm and neck. pt ambulating in room and tolerating well. pt educated on plan of care and pt
verbalized understanding. call piper within reach.
[2023-11-18] MEDS: SENOKOT 8.6 MG PO (19:24)
[2023-11-18] MEDS: ROXICODONE 2.5 MG PO (22:19)
[2023-11-18] MEDS: FLOMAX 0.4 MG PO (22:19)
--- NOTE | 2023-11-19 00:08 | PTCARENOTE ---
received patient at the change of shift. AAOx3. patient states feeling anxious today-prn xanax given. SB-SR on [id number]. complains of pain at CT site-PRN oxycodone given, see mar. CT site CDI. -20 wall suction. no air leaks. crepitus noted-Lt
arm/neck, left flank/back. unchanged. surgical incisions-YVES. x1 incision-open; no drainage. educated patient to inform RN with any changes. ambulating to the bathroom independently. call piper within reach. makes needs known.
[2023-11-19 04:36] VITALS: BP 110/69
--- NOTE | 2023-11-19 05:37 | W.PN.CT ---
Today's Communication / Plan
-
-No major issues overnight. Hemodynamically intact
-Chest tube is connected to a Heimlich valve and on -20 cm H2O wall suction
-Cannot appreciate a ptx today, SQ emphysema appears unchanged, f/u official report
-Will discuss chest tube off wall suction with f/u cxr and home with Heimlich valve
-OOB into chair/Ambulate
Assessment / Plan
-
Assessment:
-S/P Robotic assisted thoracic surgery [RATS] left lower lobectomy/Radical lymph node dissection/Intercostal nerve block interspaces 4 through 8 with 5 cc of bupivacaine solution in each, by Dr. Livingston on 11/05/23, pod#13
-s/p placement of 'zaragoza slit' with wound vac application and chest tube exchange/upsized on 11/12/23- wound vac dcd 11/13 d/t continued blockage alarm
-Heimlich valve placed on 11/13 and hooked to suction after failing water seal.
-Left Lung Ca /Adenocarcinoma of LLL (3.2 cm)
-Asbestos exposure
-S/p bronch biopsy 09/26/23
-Tobacco Abuse (40 pk/yr, quit 2020)
-AAA S/P FEVAR 12/07/20
-HTN
-Hyperthyroidism
-BPH
-Vitamine D deficiency
-Varicose vein S/P stripping,
-Cellulitis
-Depression/Anxiety
-Sinus bradycardia
-Skin ca of Left shoulder S/P excision, 2006
-Acute postop NSVT (6 runs of PVC's), Asymptomatic
-Acute postop urinary retention, scanned for > 600 mL, torito lant @ 2230 on 11/05 and d/c'd next morning
-Acute postop subcutaneous emphysema- s/p zaragoza slit and wound vac placement 11/12/23- d/cd on 11/13
Discussed patient care with: Cardiology, Nursing, Respiratory Therapy, Pharmacy and Care Team
Subjective
Procedure
S/P Robotic assisted thoracic surgery [RATS] left lower lobectomy/Radical lymph node dissection/Intercostal nerve block interspaces 4 through 8 with 5 cc of bupivacaine solution in each, by Dr. Livingston, 11/05/23
-
Date of Service: November 19, 2023
C/O mild chest tube site discomfort, otherwise feels well
Objective Data
-
Lab Results
11/18/23 05:25
11/18/23 05:25
PT 13.9 Sec (11.4-14.6) 10/18/23 12:33
INR 1.06 10/18/23 12:33
APTT Cancelled 11/09/23 11:40
Vital Signs
Vital Signs
Temp Pulse Resp BP Pulse Ox
98.7 F 62 18 110/69 94
11/19/23 04:30 11/19/23 04:36 11/19/23 04:30 11/19/23 04:36 11/19/23 04:36
CT Intake/Output/Weight
11/18/23 11/18/23 11/19/23
06:59 18:59 06:59
Intake Total 960 / 1508 480 / 730 250 / 730
Output Total 50 / 93 102 / 102
Balance 910 / 1415 480 / 628 148 / 628
SaO2: 94 (RA)
Physical Exam
-
General: Awake, Oriented and AOx3
Cardiovascular: Regular rate & rhythm
Respiratory: Decreased Breath Sounds (on left)
Incision: Clean, Dry, Intact and Dressing Intact
Extremities: No Edema
Data Reviewed
-
Lab Results: Results Reviewed
Medications: Active Meds Reviewed
Chest X-Ray: Report Reviewed and Image Reviewed
ECG: Report Reviewed and Image Reviewed
[2023-11-19] MEDS: TYLENOL 1000 MG PO ×3 (05:39→23:13)
[2023-11-19] MEDS: HYZAAR 50-12.5 1 TAB PO (07:56)
[2023-11-19] MEDS: NEURONTIN 100 MG PO ×3 (07:56→23:12)
[2023-11-19] MEDS: ASPIR LOW (ENTERIC COATED) 81 MG PO (07:56)
[2023-11-19] MEDS: TOPROL XL 25 MG PO (07:56)
[2023-11-19] MEDS: PLAVIX 75 MG PO (07:56)
[2023-11-19] MEDS: SENOKOT 8.6 MG PO ×2 (07:56→19:31)
[2023-11-19] MEDS: VITAMIN D3 (cholecalciferol) 125 MCG PO (07:56)
[2023-11-19] MEDS: PACERONE 200 MG PO ×3 (07:56→23:13)
[2023-11-19 07:58] VITALS: BP 127/76
[2023-11-19] MEDS: HEPARIN 5000 UNITS SC ×3 (07:59→23:13)
[2023-11-19] MEDS: MUCINEX 1200 MG PO ×2 (07:59→19:31)
[2023-11-19] MEDS: MIRALAX PO (08:02)
[2023-11-19] MEDS: NORVASC 2.5 MG PO (08:11)
[2023-11-19] MEDS: LIDOCAINE 4% PATCH TOPICAL (08:11)
[2023-11-19] MEDS: DESENEX/MITRAZOL/ZEASORB 1 APPLIC TOPICAL ×2 (08:12→19:33)
[2023-11-19 08:51] VITALS: BMI 23.1
[2023-11-19] MEDS: XANAX 0.5 MG PO ×2 (09:34→18:40)
[2023-11-19] MEDS: ROXICODONE 5 MG PO ×2 (09:51→19:31)
[2023-11-19 12:56] VITALS: BP 102/67
[2023-11-19 15:50] VITALS: BP 108/69
--- NOTE | 2023-11-19 16:04 | PTCARENOTE ---
PA in this am and removed suction from chest tube. After 40 minutes off suction pt developed pain. Medicated with xanax as ordered. CT PA notified. Stat pcxr done and later put back on neg 20cm of suction. Medicated with oxycodone 5 mg as ordered
for pain with relief.
[2023-11-19] MEDS: MAG-TAB SR 84 MG PO (17:16)
--- NOTE | 2023-11-19 17:24 | CM ---
dc plans remain home when medically stable with f/u [facility]
[2023-11-19 19:28] VITALS: BP 113/68
[2023-11-19 22:41] VITALS: BP 99/48
[2023-11-19] MEDS: FLOMAX 0.4 MG PO (23:12)
[2023-11-20 04:44] VITALS: BP 127/70
[2023-11-20 05:03] VITALS: BMI 23.3
[2023-11-20] MEDS: TYLENOL 1000 MG PO ×3 (05:54→22:31)
--- NOTE | 2023-11-20 05:58 | PTCARENOTE ---
Tele remains Sinus Sunil-SR at rest. CT site intact and dressing changed at HS by Yolanda MULLER. Chest tube maintained at -20cm of suction. Crepitus remains starting at chest tube site and goes up and over to left chest wall and into upper
left arm. No air leak present at this time. Total CT output during maintenance mechanic 2nd shift is 55ml. POC ongoing. Call piper within reach.
[2023-11-20 06:00] VITALS: BMI 23.3
--- NOTE | 2023-11-20 06:14 | W.PN.CT ---
Today's Communication / Plan
-
-pod #15
-no major issues overnight, no complaints, says that overall feels better. Hemodynamically intact
-L chest tube is connected to a Heimlich valve and on -20 cm H2O wall suction, put out 55/90 serous fluid. No air leak noted with breathing, talking or cough. Dressing changed 11/18
-no ptx today, SQ emphysema appears unchanged, f/u official report
-OOB into chair/Ambulate
Assessment / Plan
-
Assessment:
-S/P Robotic assisted thoracic surgery [RATS] left lower lobectomy/Radical lymph node dissection/Intercostal nerve block interspaces 4 through 8 with 5 cc of bupivacaine solution in each, by Dr. Livingston on 11/05/23, pod#15
-s/p placement of 'zaragoza slit' with wound vac application and chest tube exchange/upsized on 11/12/23- wound vac dcd 11/13 d/t continued blockage alarm
-Heimlich valve placed on 11/13 and hooked to suction after failing water seal.
-Left Lung Ca /Adenocarcinoma of LLL (3.2 cm)
-Asbestos exposure
-S/p bronch biopsy 09/26/23
-Tobacco Abuse (40 pk/yr, quit 2020)
-AAA S/P FEVAR 12/07/20
-HTN
-Hyperthyroidism
-BPH
-Vitamine D deficiency
-Varicose vein S/P stripping,
-Cellulitis
-Depression/Anxiety
-Sinus bradycardia
-Skin ca of Left shoulder S/P excision, 2006
-Acute postop NSVT (6 runs of PVC's), Asymptomatic
-Acute postop urinary retention, scanned for > 600 mL, torito leonardsert @ 2230 on 11/05 and d/c'd next morning
-Acute postop subcutaneous emphysema- s/p zaragoza slit and wound vac placement 11/12/23- d/cd on 11/13
Discussed patient care with: Nursing and Care Team
Subjective
Procedure
S/P Robotic assisted thoracic surgery [RATS] left lower lobectomy/Radical lymph node dissection/Intercostal nerve block interspaces 4 through 8 with 5 cc of bupivacaine solution in each, by Dr. Livingston, 11/05/23
-
Date of Service: November 20, 2023
Objective Data
-
Lab Results
11/18/23 05:25
11/18/23 05:25
PT 13.9 Sec (11.4-14.6) 10/18/23 12:33
INR 1.06 10/18/23 12:33
APTT Cancelled 11/09/23 11:40
Vital Signs
Vital Signs
Temp Pulse Resp BP Pulse Ox
98.5 F 59 20 127/70 95
11/20/23 04:42 11/20/23 04:44 11/20/23 04:42 11/20/23 04:44 11/20/23 04:44
CT Intake/Output/Weight
11/19/23 11/19/23 11/20/23
06:59 18:59 06:59
Intake Total 250 / 730 480 / 480
Output Total 102 / 102 35 / 90 55 / 90
Balance 148 / 628 -35 / 390 425 / 390
SaO2: 95
Physical Exam
-
General: Awake and AOx3
Cardiovascular: Regular rate & rhythm, No Murmurs and No Rub
Respiratory: Decreased Breath Sounds (b/l, crackles on L. + crepitus over upper L chest, L arm, neck )
Incision: Clean, Dry and Dressing Intact
Extremities: No Edema
Data Reviewed
-
Lab Results: Results Reviewed
Medications: Active Meds Reviewed
Chest X-Ray: Report Reviewed and Image Reviewed
[2023-11-20 08:14] VITALS: BP 109/76
[2023-11-20] MEDS: MUCINEX 1200 MG PO ×2 (08:16→19:38)
[2023-11-20] MEDS: ASPIR LOW (ENTERIC COATED) 81 MG PO (08:17)
[2023-11-20] MEDS: HYZAAR 50-12.5 1 TAB PO (08:17)
[2023-11-20] MEDS: DESENEX/MITRAZOL/ZEASORB 1 APPLIC TOPICAL ×2 (08:17→19:38)
[2023-11-20] MEDS: LIDOCAINE 4% PATCH TOPICAL (08:18)
[2023-11-20] MEDS: TOPROL XL 25 MG PO (08:19)
[2023-11-20] MEDS: PLAVIX 75 MG PO (08:19)
[2023-11-20] MEDS: VITAMIN D3 (cholecalciferol) 125 MCG PO (08:19)
[2023-11-20] MEDS: NORVASC 2.5 MG PO (08:19)
[2023-11-20] MEDS: MIRALAX PO (08:19)
[2023-11-20] MEDS: NEURONTIN 100 MG PO ×3 (08:20→22:31)
[2023-11-20] MEDS: SENOKOT PO (08:20)
[2023-11-20] MEDS: PACERONE 200 MG PO ×3 (08:20→22:31)
[2023-11-20] MEDS: ROXICODONE 2.5 MG PO ×3 (08:24→22:32)
[2023-11-20] MEDS: XANAX 0.5 MG PO ×2 (08:30→19:38)
[2023-11-20] MEDS: HEPARIN SC (08:55)
--- NOTE | 2023-11-20 09:30 | PTCARENOTE ---
Assumed care of pt from night RN. Pt received awake and alert, Ox3. VSs, CM shows NSR 70's, POX 98% on RA. Dr. Livingston in this am, CT connected to Heimlich valve and gravity drg. Roxicodone 2.5 mg given for 6/10 pain at chest tube site. Xanax also
given as per APR for anxiety. Anticoagulation RX changed to Lovenox as per APR. Pt ambulating freely in hallway. Assessment as documented.
[2023-11-20 11:30] VITALS: BP 108/66
[2023-11-20 15:18] VITALS: BP 108/79
[2023-11-20] MEDS: LOVENOX 40 MG SC (17:35)
[2023-11-20] MEDS: MAG-TAB SR 84 MG PO (17:35)
--- NOTE | 2023-11-20 18:14 | PTCARENOTE ---
Pt tolerated CT to gravity drg. Portable CXR repeated at 1800.
[2023-11-20 18:29] VITALS: BP 109/72
[2023-11-20] MEDS: SENOKOT 8.6 MG PO (19:39)
[2023-11-20] MEDS: FLUSH (NSS) 1 FLUSH IV (19:40)
--- NOTE | 2023-11-20 20:12 | PTCARENOTE ---
Addendum entered by Barbara Nunes RN 11/21/23 01:21:
Post nebulizer, patient stated the pressure improved. RN assisted with showering. Patient walked the halls. Pain meds given per APR.
Original Note:
Received patient at change of shift. Awake, alert and oriented. Patient verbalized difficulty with exhaling. RN heard audible wheezes and notified EVELINA Regalado. Order placed for repeat chest x-ray and albuterol treatment. Crepitus present
on left arm, neck and chest. BP 109/72, 50s-60s NSR, 98% on room air. Discussed calling with additional shortness of breath or other changes. Patient verbalized understanding. Call piper left within reach.
Reached out to respiratory therapist for albuterol treatment.
[2023-11-20] MEDS: VENTOLIN NEBULES 2.5 MG INH (20:35)
[2023-11-20 22:31] VITALS: BP 108/72
[2023-11-20] MEDS: FLOMAX 0.4 MG PO (22:31)
--- NOTE | 2023-11-21 05:25 | W.PN.CT ---
Today's Communication / Plan
-
-pod#16
-L CT with Heimlich valve, off suction since 11/19.
-c/o 'hard to exhale' last night - he appeared comfortable with pOx 99% on RA, no distress. Repeat CXR was stable and no visible increase of SQ emphysema was noted. Continued off suction overnight. Pt got Neb tx, felt better and ambulated in
hallways without difficulty.
-follow am CXR - pending
-possible d/c home
Assessment / Plan
-
Assessment:
-S/P Robotic assisted thoracic surgery [RATS] left lower lobectomy/Radical lymph node dissection/Intercostal nerve block interspaces 4 through 8 with 5 cc of bupivacaine solution in each, by Dr. Livingston on 11/05/23, pod#16
-s/p placement of 'zaragoza slit' with wound vac application and chest tube exchange/upsized on 11/12/23- wound vac dcd 11/13 d/t continued blockage alarm
-Heimlich valve placed on 11/13 and hooked to suction after failing water seal.
-Left Lung Ca /Adenocarcinoma of LLL (3.2 cm)
-Asbestos exposure
-S/p bronch biopsy 09/26/23
-Tobacco Abuse (40 pk/yr, quit 2020)
-AAA S/P FEVAR 12/07/20
-HTN
-Hyperthyroidism
-BPH
-Vitamine D deficiency
-Varicose vein S/P stripping,
-Cellulitis
-Depression/Anxiety
-Sinus bradycardia
-Skin ca of Left shoulder S/P excision, 2006
-Acute postop NSVT (6 runs of PVC's), Asymptomatic
-Acute postop urinary retention, scanned for > 600 mL, ugarte reinsert @ 2230 on 11/05 and d/c'd next morning
-Acute postop subcutaneous emphysema- s/p zaragoza slit and wound vac placement 11/12/23- d/cd on 11/13
Discussed patient care with: Nursing and Care Team
Subjective
Procedure
S/P Robotic assisted thoracic surgery [RATS] left lower lobectomy/Radical lymph node dissection/Intercostal nerve block interspaces 4 through 8 with 5 cc of bupivacaine solution in each, by Dr. Livingston, 11/05/23
-
Date of Service: November 21, 2023
Objective Data
-
Lab Results
11/18/23 05:25
11/18/23 05:25
PT 13.9 Sec (11.4-14.6) 10/18/23 12:33
INR 1.06 10/18/23 12:33
APTT Cancelled 11/09/23 11:40
Vital Signs
Vital Signs
Temp Pulse Resp BP Pulse Ox
98.1 F 60 20 109/72 100
11/20/23 22:33 11/20/23 20:37 11/20/23 22:33 11/20/23 18:29 11/20/23 22:33
CT Intake/Output/Weight
11/20/23 11/20/23 11/21/23
06:59 18:59 06:59
Intake Total 480 / 480
Output Total 55 / 90
Balance 425 / 390
SaO2: 100
Physical Exam
-
General: Awake and AOx3
Cardiovascular: Regular rate & rhythm and No Murmurs
Respiratory: Decreased Breath Sounds (b/l. brief wheeze at upper airway (throat)-resolved)
Incision: Clean, Dry and Dressing Intact
Extremities: No Edema
Data Reviewed
-
Lab Results: Results Reviewed
Medications: Active Meds Reviewed
Chest X-Ray: Report Reviewed and Image Reviewed
ECG: Report Reviewed and Image Reviewed
[2023-11-21] MEDS: TYLENOL 1000 MG PO ×3 (05:33→21:59)
[2023-11-21 05:34] VITALS: BP 124/77
[2023-11-21 08:08] VITALS: BP 130/86
[2023-11-21] MEDS: ASPIR LOW (ENTERIC COATED) 81 MG PO (08:51)
[2023-11-21] MEDS: MUCINEX 1200 MG PO ×2 (08:52→19:34)
[2023-11-21] MEDS: LIDOCAINE 4% PATCH TOPICAL (08:52)
[2023-11-21] MEDS: HYZAAR 50-12.5 1 TAB PO (08:52)
[2023-11-21] MEDS: NEURONTIN 100 MG PO ×3 (08:53→21:59)
[2023-11-21] MEDS: NORVASC 2.5 MG PO (08:53)
[2023-11-21] MEDS: MIRALAX PO (08:53)
[2023-11-21] MEDS: PACERONE 200 MG PO ×3 (08:54→21:59)
[2023-11-21] MEDS: SENOKOT 8.6 MG PO ×2 (08:54→19:34)
[2023-11-21] MEDS: TOPROL XL 25 MG PO (08:54)
[2023-11-21] MEDS: PLAVIX 75 MG PO (08:54)
[2023-11-21] MEDS: VITAMIN D3 (cholecalciferol) 125 MCG PO (08:54)
[2023-11-21] MEDS: XANAX 0.5 MG PO ×2 (08:55→18:01)
[2023-11-21] MEDS: FLUSH (NSS) 1 FLUSH IV (08:55)
[2023-11-21] MEDS: ROXICODONE 2.5 MG PO ×3 (09:20→19:05)
[2023-11-21] MEDS: DESENEX/MITRAZOL/ZEASORB 1 APPLIC TOPICAL ×2 (10:23→19:33)
--- NOTE | 2023-11-21 10:33 | PTCARENOTE ---
Received patient this morning resting in bed after seen by CT surgery. Patient encouraged that he is doing better but upset that he might be discharged today and that he has no ride home and possibly doesn't have any keys to his home since he SO is
in [place] and not due back until Sunday. Verbalizing about the of his son 10 months ago and the events leading up to his current surgery. Emotional support given, medicated for pain and is resting now.
[2023-11-21 11:30] VITALS: BP 143/78
--- NOTE | 2023-11-21 15:04 | CM ---
CM following for DC planning needs.
Pt. is POD#[address]/Lung Sx. Pt. will need VN due to Heimlich valve. Referral sent to [facility], accepted. Will update them on DC date.
Met w/ patient at bedside. He feels well and is glad that he is nearing DC. Pt. concerned, however, that his sig. other and her mother are out of town until Sunday. He does not have keys to his home nor transport home.
I advised him that I can coordinate transport home. We troubleshooted ways to get in the home and he states that no one local has an extra santoro. We discussed the possibility of staying w/ a friend until they return, however, his friends reside in the
[facility] area. He agreed to think of options and CM will follow up.
I cannot send him to a SNF due to no clinical need for SNF.
Will cont. to follow.
[2023-11-21 15:34] VITALS: BP 122/70
[2023-11-21 17:12] VITALS: BMI 22.9
[2023-11-21] MEDS: MAG-TAB SR 84 MG PO (18:00)
[2023-11-21] MEDS: LOVENOX 40 MG SC (18:01)
[2023-11-21 19:23] VITALS: BP 131/73
--- NOTE | 2023-11-21 21:37 | PTCARENOTE ---
Received pt at handoff. AOX3 and pleasant. CT connected to Heimlich valve draining into ugarte catheter. Tele- SR. Pt has been ambulatory around room and hallway w/ steady gait. Plan of care discussed w/ pt. Verbalizes understanding. Currently in
bed; call feliz w/in reach.
[2023-11-21 21:58] VITALS: BP 101/76
[2023-11-21] MEDS: FLOMAX 0.4 MG PO (21:59)
--- NOTE | 2023-11-22 03:47 | W.PN.CT ---
Today's Communication / Plan
-
-pod#17
-L CT with Heimlich valve, off suction since 11/19.
-d/c home soon with VN follow-up
Assessment / Plan
-
Assessment:
-S/P Robotic assisted thoracic surgery [RATS] left lower lobectomy/Radical lymph node dissection/Intercostal nerve block interspaces 4 through 8 with 5 cc of bupivacaine solution in each, by Dr. Livingston on 11/05/23, pod#17
-s/p placement of 'zaragoza slit' with wound vac application and chest tube exchange/upsized on 11/12/23- wound vac dcd 11/13 d/t continued blockage alarm
-Heimlich valve placed on 11/13 and hooked to suction after failing water seal.
-Left Lung Ca /Adenocarcinoma of LLL (3.2 cm)
-Asbestos exposure
-S/p bronch biopsy 09/26/23
-Tobacco Abuse (40 pk/yr, quit 2020)
-AAA S/P FEVAR 12/07/20
-HTN
-Hyperthyroidism
-BPH
-Vitamine D deficiency
-Varicose vein S/P stripping,
-Cellulitis
-Depression/Anxiety
-Sinus bradycardia
-Skin ca of Left shoulder S/P excision, 2006
-Acute postop NSVT (6 runs of PVC's), Asymptomatic
-Acute postop urinary retention, scanned for > 600 mL, ugarte reinsert @ 2230 on 11/05 and d/c'd next morning
-Acute postop subcutaneous emphysema- s/p zaragoza slit and wound vac placement 11/12/23- d/cd on 11/13
Discussed patient care with: Nursing and Care Team
Subjective
Procedure
S/P Robotic assisted thoracic surgery [RATS] left lower lobectomy/Radical lymph node dissection/Intercostal nerve block interspaces 4 through 8 with 5 cc of bupivacaine solution in each, by Dr. Livingston, 11/05/23
-
Date of Service: November 22, 2023
Objective Data
-
Lab Results
11/18/23 05:25
11/18/23 05:25
PT 13.9 Sec (11.4-14.6) 10/18/23 12:33
INR 1.06 10/18/23 12:33
APTT Cancelled 11/09/23 11:40
Vital Signs
Vital Signs
Temp Pulse Resp BP Pulse Ox
98.2 F 61 16 101/76 99
11/21/23 21:58 11/21/23 23:00 11/21/23 21:58 11/21/23 21:58 11/21/23 21:58
CT Intake/Output/Weight
11/21/23 11/21/23 11/22/23
06:59 18:59 06:59
Intake Total 250 / 250 720 / 720
Output Total 60 / 60 70 / 70
Balance 190 / 190 720 / 650 -70 / 650
SaO2: 99
Physical Exam
-
General: Awake and AOx3
Cardiovascular: Regular rate & rhythm and No Murmurs
Respiratory: Decreased Breath Sounds (b/l. brief wheeze at upper airway (throat)-resolved)
Incision: Clean, Dry and Dressing Intact
Extremities: No Edema
Data Reviewed
-
Lab Results: Results Reviewed
Medications: Active Meds Reviewed
Chest X-Ray: Report Reviewed and Image Reviewed
[2023-11-22 04:20] VITALS: BP 116/76
[2023-11-22 06:00] VITALS: BMI 22.6
[2023-11-22] MEDS: TYLENOL 1000 MG PO ×3 (06:08→22:07)
[2023-11-22 08:02] VITALS: BP 125/82
[2023-11-22] MEDS: DESENEX/MITRAZOL/ZEASORB 1 APPLIC TOPICAL ×2 (08:15→19:58)
[2023-11-22] MEDS: HYZAAR 50-12.5 1 TAB PO (08:15)
[2023-11-22] MEDS: ASPIR LOW (ENTERIC COATED) 81 MG PO (08:15)
[2023-11-22] MEDS: MUCINEX 1200 MG PO ×2 (08:16→19:57)
[2023-11-22] MEDS: MIRALAX PO (08:16)
[2023-11-22] MEDS: NEURONTIN 100 MG PO ×3 (08:16→22:08)
[2023-11-22] MEDS: LIDOCAINE 4% PATCH TOPICAL (08:16)
[2023-11-22] MEDS: VITAMIN D3 (cholecalciferol) 125 MCG PO (08:17)
[2023-11-22] MEDS: NORVASC 2.5 MG PO (08:17)
[2023-11-22] MEDS: SENOKOT PO (08:17)
[2023-11-22] MEDS: PACERONE 200 MG PO ×3 (08:17→22:07)
[2023-11-22] MEDS: PLAVIX 75 MG PO (08:17)
[2023-11-22] MEDS: TOPROL XL 25 MG PO (08:17)
[2023-11-22] MEDS: ROXICODONE 2.5 MG PO ×2 (08:18→17:25)
[2023-11-22] MEDS: XANAX 0.5 MG PO ×2 (08:18→19:57)
--- NOTE | 2023-11-22 08:42 | PTCARENOTE ---
Received patient at shift change. SR on the monitor, VSS. Chest tube in place, dressing CDI. Pt complains of 7/10 pain at left back incision sites, PRN pain medications given as per APR. Pt complains of anxiety, PRN Xanax administered as per APR.
Call piper within reach.
[2023-11-22 12:01] VITALS: BP 110/72
[2023-11-22 15:13] VITALS: BP 116/77
[2023-11-22] MEDS: LOVENOX 40 MG SC (17:24)
[2023-11-22] MEDS: MAG-TAB SR 84 MG PO (17:25)
--- NOTE | 2023-11-22 17:46 | PTCARENOTE ---
Patient rung his call piper, alerted nurse 'my chest tube is still in but it is bleeding.' Chest tube and sutures intact but dressing missing. FOOD CRITIC Mervat Ren made aware. New dressing applied and secured. No other complaints from pt at this time.
[2023-11-22 19:39] VITALS: BP 108/68
[2023-11-22] MEDS: SENOKOT 8.6 MG PO (19:57)
[2023-11-22] MEDS: FLOMAX 0.4 MG PO (22:07)
[2023-11-22 22:09] VITALS: BP 116/80
--- NOTE | 2023-11-23 00:07 | W.PN.CT ---
Today's Communication / Plan
-
-pod#18
-L CT with Heimlich valve, off suction since 11/19.
-d/c home soon with VN follow-up
Assessment / Plan
-
Assessment:
-S/P Robotic assisted thoracic surgery [RATS] left lower lobectomy/Radical lymph node dissection/Intercostal nerve block interspaces 4 through 8 with 5 cc of bupivacaine solution in each, by Dr. Livingston on 11/05/23, pod#18
-s/p placement of 'zaragoza slit' with wound vac application and chest tube exchange/upsized on 11/12/23- wound vac dcd 11/13 d/t continued blockage alarm
-Heimlich valve placed on 11/13 and hooked to suction after failing water seal.
-Left Lung Ca /Adenocarcinoma of LLL (3.2 cm)
-Asbestos exposure
-S/p bronch biopsy 09/26/23
-Tobacco Abuse (40 pk/yr, quit 2020)
-AAA S/P FEVAR 12/07/20
-HTN
-Hyperthyroidism
-BPH
-Vitamine D deficiency
-Varicose vein S/P stripping,
-Cellulitis
-Depression/Anxiety
-Sinus bradycardia
-Skin ca of Left shoulder S/P excision, 2006
-Acute postop NSVT (6 runs of PVC's), Asymptomatic
-Acute postop urinary retention, scanned for > 600 mL, ugarte reinsert @ 2230 on 11/05 and d/c'd next morning
-Acute postop subcutaneous emphysema- s/p zaragoza slit and wound vac placement 11/12/23- d/cd on 11/13
Lung, left, lower lobe, lobectomy pathology:
-Adenocarcinoma (3.8 cm), invasive, moderately differentiated.
-Tumor invades through visceral pleura.
-Lymphatic invasion is identified.
-All lymph nodes are negative for metastasis (0/14).
-Bronchial margin, vascular margin, and staple line margin are negative for tumor
Discussed patient care with: Nursing
Subjective
Procedure
S/P Robotic assisted thoracic surgery [RATS] left lower lobectomy/Radical lymph node dissection/Intercostal nerve block interspaces 4 through 8 with 5 cc of bupivacaine solution in each, by Dr. Livingston, 11/05/23
-
Date of Service: November 23, 2023
Objective Data
-
Lab Results
11/18/23 05:25
11/18/23 05:25
PT 13.9 Sec (11.4-14.6) 10/18/23 12:33
INR 1.06 10/18/23 12:33
APTT Cancelled 11/09/23 11:40
Vital Signs
Vital Signs
Temp Pulse Resp BP Pulse Ox
97.9 F 71 16 116/80 98
11/22/23 22:12 11/22/23 22:09 11/22/23 22:12 11/22/23 22:09 11/22/23 22:12
CT Intake/Output/Weight
11/22/23 11/22/23 11/23/23
06:59 18:59 06:59
Intake Total 240 / 960 480 / 480
Output Total 70 / 70
Balance 170 / 890 480 / 480
SaO2: 98
Physical Exam
-
General: Awake and AOx3
Cardiovascular: Regular rate & rhythm and No Murmurs
Respiratory: Decreased Breath Sounds (b/l. brief wheeze at upper airway (throat)-resolved)
Incision: Clean, Dry and Dressing Intact
Extremities: No Edema
Data Reviewed
-
Lab Results: Results Reviewed
Medications: Active Meds Reviewed
Chest X-Ray: Report Reviewed and Image Reviewed
[2023-11-23 02:34] VITALS: BP 149/68
[2023-11-23] MEDS: TYLENOL 1000 MG PO ×2 (05:31→13:49)
[2023-11-23 07:51] VITALS: BP 122/85
[2023-11-23] MEDS: HYZAAR 50-12.5 1 TAB PO (08:01)
[2023-11-23] MEDS: ASPIR LOW (ENTERIC COATED) 81 MG PO (08:01)
[2023-11-23] MEDS: DESENEX/MITRAZOL/ZEASORB 1 APPLIC TOPICAL (08:01)
[2023-11-23] MEDS: NORVASC 2.5 MG PO (08:02)
[2023-11-23] MEDS: MIRALAX 17 GRAMS PO (08:02)
[2023-11-23] MEDS: MUCINEX 1200 MG PO (08:02)
[2023-11-23] MEDS: LIDOCAINE 4% PATCH TOPICAL (08:02)
[2023-11-23] MEDS: NEURONTIN 100 MG PO (08:02)
[2023-11-23] MEDS: SENOKOT 8.6 MG PO (08:03)
[2023-11-23] MEDS: TOPROL XL 25 MG PO (08:03)
[2023-11-23] MEDS: XANAX 0.5 MG PO (08:03)
[2023-11-23] MEDS: VITAMIN D3 (cholecalciferol) 125 MCG PO (08:03)
[2023-11-23] MEDS: PACERONE 200 MG PO (08:03)
[2023-11-23] MEDS: ROXICODONE 2.5 MG PO ×2 (08:03→13:49)
[2023-11-23] MEDS: PLAVIX 75 MG PO (08:03)
--- NOTE | 2023-11-23 08:22 | PTCARENOTE ---
Received patient at change of shift. Chest tube in place with dressing CDI. SR on the monitor, VSS. Pt complains of 7/10 back pain, pain medications administered as per APR. Pt planning for d/c after lunch. Call piper within reach.
[2023-11-23 09:22] VITALS: BMI 22.8
--- NOTE | 2023-11-23 09:39 | W.DCSUMMARY ---
Discharge Summary
Discharge Data
Date of Admission: 11/05/23
Date of Discharge: 11/23/23
Total time spent discharging patient (in min): 40
-
Pending Results: No
Hospital Course
Primary care physician:
Dr. Edu Acuna
Outpatient lumber sorter machine:
Dr. Singh
Inpatient consultants:
Pulmonary
Procedures:
1. Robotic assisted thoracic surgery [RATS] left lower lobectomy and Lymph node resection
Primary Diagnosis:
1. Left lower lobe adenocarcinoma
Secondary Diagnoses:
1. Lung cancer
2. Abdominal aortic aneurysm status post EVAR
3. Hypertension
4. Depression/anxiety
5. Hypothyroidism
6. BPH
7. History of bronchitis
8. History of tobacco abuse, quit in 2020
9. Asbestos exposure
HPI: 68-year-old male with an extensive past smoking history. He was found to have a cavitary lesion in the left lower lobe. Robotic endoluminal bronchoscopy came back as adenocarcinoma. Given the size of the mass, he met stage Ib the TNM
staging for lung cancer. Lymph nodes were negative on preoperative workup. He presented electively on 11/[address] Livingston
Hospital course: Patient on 11/04 presented electively for left lower lobe resection by Dr. Livingston. Postoperatively he returned to the CVICU with a +1 intermittent airleak. He was started on subcu heparin due to preliminary results of being
cancerous. On 11/05 postoperative day 1, patient had increased subcu emphysema and an abdominal binder was placed. Suction was maintained. Alonzo was removed and beta-blockers were started due to increased PVCs and PACs. On 11/06 postoperative day
2 patient had a persistent airleak and suction was maintained. On 11/07 postoperative day #3 suction was decreased to -10 and repeat chest x-ray showed a trace pneumothorax. On 11/08 postoperative day 4 morning chest x-ray showed a stable trace
apical pneumothorax. Patient still had an intermittent airleak with cough. However he was trialed on waterseal and had increased Crepitus therefore was placed back on suction. Amiodarone was added for tacky arrhythmia. On 11/09 postoperative day
#5 patient remained on -15 mmHg of suction subcu emphysema was stable. On 11/10 postoperative day #6 airleak resolved and he was placed on waterseal, however, patient started complaining of pain and was placed back on suction. On 11/11 postoperative
day #7, chest tube was exchanged by Dr. Livingston and a zaragoza slit was made with wound VAC application. Subcu emphysema slightly improved after interventions. On 11/12 postoperative day #8, suction was decreased to -10 mmHg subcu air continue to improve.
Bowel regimen was started. On 11/13 postoperative day 9 wound VAC was removed after multiple attempts of exchanging the sponge. He was trialed on a waterseal however he failed due to increased subcu air and discomfort. On 11/14 postoperative day
#10 there was a trace airleak while on suction and subcu emphysema got worse. Therefore suction was maintained. On 11/15 postoperative day #11 a Heimlich valve was placed and patient tolerated for 20 minutes before complaining of 8 out of 10 chest
pain therefore he was hooked back up to the Pleur-evac with suction. On 11/16 postoperative day #12 subcu emphysema was worse compared to prior study therefore suction was increased to -20. On 11/17 postoperative day #13 there was no air leak
appreciated with cough or deep breaths continued suction with -20 of pressure. Subcu emphysema was stable. On 11/18 postoperative day #14 patient tolerated Heimlich valve for 3 hours but repeat chest x-ray showed increased subcu emphysema and was
placed back on suction with the Heimlich valve in place. On 11/19 postoperative day #15 patient remains on Heimlich valve chest x-ray was stable. On 11/20 postoperative day #16 chest x-ray remained stable however no one was home to care for him. On
11/22 postoperative day #18, patient remained stable on Heimlich valve and ready for discharge home with family. He is set up for a repeat chest x-ray in 1 week along with a follow-up office visit for possible removal. He will be followed by
[facility] home care nurses. His prescriptions were printed per his preference.
Home medication changes:
See below
Discharge Plan
-
Patient Disposition: Home (Routine Discharge)
Discharge Diagnosis/Procedures: lung cancer (adenocarcinoma), s/p robotic assisted left lower Lobectomy, Lymph node dissection
Condition: Good
Diet: As tolerated
Activity: No strenuous activity
Driving Restrictions: NO DRIVING WHILE ON NARCOTICS
Bathing Restrictions: OK to Shower
Others Tests: CXR Wednesday 11/29
Wound Care: continue heimlich to fluid collection bag, empty as needed. OK to shower, but protect wound with saran wrap or tegaderm dressing. change dressing as needed for saturation.
Instructions: How to care for a chest tube or catheter
Referrals:
CT Transitional Care Nurse [Outside] (The Cardiothoracic Transitional Care Nurse will call you to set up a visit in 1-2 days.)
Kian Langley MD [Active] - in two to three weeks
Edu Acuna DO [Family Provider] -
Tyrone Livingston MD [Active] - 11/30/23 1:45 pm
Additional Discharge Medication Instructions: You are on amiodarone for 4 weeks post-op for arrhythmia prevention
Lopressor was added to your medication list. Please follow with your pcp about its continuation
Do not drive while taking oxycodone.
You can take tylenol as needed for mild pain
Prescriptions:
New
metoprolol succinate [Toprol XL] 25 mg tablet extended release 24 hr
25 mg PO DAILY Qty: 30 0RF
amiodarone 200 mg tablet
200 mg PO DAILY Qty: 14 0RF
oxycodone 5 mg capsule
2.5 mg PO Q8H PRN (Reason: Severe pain) Qty: 7 0RF
acetaminophen [Tylenol] 325 mg capsule
650 mg PO Q6H PRN (Reason: mild pain) Qty: 60 0RF
Continued
amlodipine 2.5 MG tablet
2.5 mg PO DAILY
alprazolam 0.5 MG tablet
0.5 mg PO BID PRN (Reason: Mental Health/Anxiety)
Patient Comments:
11/02/2021: last filled 09/02/21, 60 tabs for 30 days from [facility]
magnesium oxide 250 MG tablet
250 - 500 mg PO QPM
cholecalciferol (vitamin D3) 125 MCG tablet,disintegrating
5,000 unit PO DAILY
aspirin [Adult Aspirin Regimen] 81 MG tablet,delayed release (DR/EC)
81 mg PO DAILY
clopidogrel 75 MG tablet
75 mg PO DAILY Qty: 60 0RF
zinc acetate 50 mg (zinc) Capsule
50 mg PO DAILY
selenium 200 mcg Tablet
200 mcg PO DAILY
alpha lipoic acid 300 mg Capsule
300 mg PO BID
tamsulosin 0.4 MG capsule
0.4 mg PO HS
losartan-hydrochlorothiazide 50-12.5 mg Tablet
1 tab PO DAILY
albuterol sulfate 90 mcg/actuation Hfa Aerosol Inhaler
2 puff INHALATION Q6H PRN (Reason: SOB)
acetaminophen 325 mg Tablet
650 mg PO Q6H PRN (Reason: pain)
Discharge Orders:
Discharge Patient (As Directed); Ordered 11/23/23
Ordered By: Mervat Ren
Care Plan Goals
Care Plan Goals:
Problem: Readiness for enhanced knowledge related to diagnosis and treatment plan
Goal: Understand your diagnosis and treatment plan needs, including medications if applicable.
Instructions: Know your diagnosis, underlying causes and treatment plan options, including medications if applicable. Consult with your health care team to learn about your diagnosis and treatment plan, including medications if applicable.
Discharge Date and Time
Print Language: HUNGARIAN
--- NOTE | 2023-11-23 10:04 | W.[place]-PDMP ---
[place]-PDMP
-
Checked the [place]- Prescription Drug Monitoring Program website, no red flags identified; safe to proceed with prescription.
--- NOTE | 2023-11-23 10:28 | CM ---
Reviewed chart. Met with Mr. Zavala to review discharge plans. He states prior to admission he resides with his significant other and her mother in a two sto ry home with three steps to enter. He states he has a full flight of steps to get to
bedroom/full bathroom. He states he has a powder room on the first floor. He states prior to admission he was independent with ambulation and adls. Currently he is ambulating in his room with a steady gait. We reviewed VNA Services with
[facility]. He is agreeable to VNA Services. Telephone call to [facility] Intake to give them discharge date. We reviewed Good RX coupon and the cost of his new medications. Gave him the Good Rx Coupons. He states his ride will supervisor opening and picking
early afternoon. Medical work-up in progress. The discharge plan is to return home with his significant other and her mother with [facility] when medically stable.
[2023-11-23 11:17] VITALS: BP 102/64
--- NOTE | 2023-11-23 11:48 | VNURNOTE ---
Home Health Liaison spoke with patient to discuss [facility] nurse/therapy, visits, schedule and homebound status. Patient is agreeable and understands that visits at home will be 2-3 x per week to assess and teach medical management. First [facility] visit to
be tomorrow. Instructed patient that [facility] will contact him later today or tomorrow AM to schedule visit. Wound dressing orders clarified with Mervat BOWDEN. Requested extra supplies be sent home w/pt, spoke to Swapna HILL. Referral updated in
[facility] and accepted. Patient in agreement with plan.
--- NOTE | 2023-11-23 14:48 | PTCARENOTE ---
Provided patient with chest tube dressing supplies as requested by visiting nurse. Educated patient on discharge instructions, medications, and chest tube instructions, pt verbalizes understanding. Removed IV and telemetry. Pt left with staff escort
and wheel chair to home with significant other.
== END 2023-11-23 14:19 | disposition home health service (06) | DRG 164 ==
LOC: IVU 07:59
PROVIDERS: Physician Assistant Medical; ADMITTING PHYSICIAN Thoracic Surgery (Cardiothoracic Vascular Surgery); FAMILY PHYSICIAN Family Medicine; OTHER PHYSICIAN Internal Medicine Critical Care Medicine
PROC: 8E0W4CZ Robotic Assisted Procedure of Trunk Region, Percutaneous Endoscopic Approach (ICD-10-PCS; 2023-11-05)
PROC: 0BBJ4ZZ Excision of Left Lower Lung Lobe, Percutaneous Endoscopic Approach (ICD-10-PCS; 2023-11-05)
PROC: 07T74ZZ Resection of Thorax Lymphatic, Percutaneous Endoscopic Approach (ICD-10-PCS; 2023-11-05)
DX: C34.32 Malignant neoplasm of lower lobe, left bronchus or lung (principal); E87.1 Hypo-osmolality and hyponatremia; J95.811 Postprocedural pneumothorax; E03.9 Hypothyroidism, unspecified; F32.A Depression, unspecified; I10 Essential (primary) hypertension; J44.89 Other specified chronic obstructive pulmonary disease; F41.9 Anxiety disorder, unspecified; E55.9 Vitamin D deficiency, unspecified; N40.0 Benign prostatic hyperplasia without lower urinary tract symptoms; I49.3 Ventricular premature depolarization; T81.82XA Emphysema (subcutaneous) resulting from a procedure, initial encounter; Y83.6 Removal of other organ (partial) (total) as the cause of abnormal reaction of the patient, or of later complication, without mention of misadventure at the time of the procedure; Z77.090 Contact with and (suspected) exposure to asbestos; Z79.02 Long term (current) use of antithrombotics/antiplatelets; Z79.82 Long term (current) use of aspirin; Z79.899 Other long term (current) drug therapy; Z86.79 Personal history of other diseases of the circulatory system; Z87.891 Personal history of nicotine dependence; Z88.0 Allergy status to penicillin; Z82.49 Family history of ischemic heart disease and other diseases of the circulatory system
CPT/HCPCS: 88305; 88307; 32505; 36415; 71045; 80048; 80053; 81003; 81015; 82248; 83036; 83735; 85025; 85027; 85610; 85730; 86850; 86900; 86901; 87070; 88341; 88342; 93005; 93880; 94640; 99406

== ENCOUNTER → 2023-11-28 12:53 | Outpatient (REF) | payer MEDICARE, SELFPAY | LOC: RAD 12:53 | PROVIDERS: ATTENDING PHYSICIAN Clinical Nurse Specialist Acute Care; FAMILY PHYSICIAN Family Medicine | DX: J93.83 Other pneumothorax (principal); Z90.2 Acquired absence of lung [part of] | CPT/HCPCS: 71046 ==

== ENCOUNTER 2023-12-02 12:59 | Inpatient (IN) | payer MEDICARE, SELFPAY ==
[2023-12-02] VITALS (20 sets, daily range): BP systolic 122–166; BP diastolic 66–100; BMI 23.7; BMI 22.3
[2023-12-02 01:09] LABS: ALT (SGPT) 30 U/L (0-50); AST (SGOT) 34 U/L (17-59); Albumin 4.2 g/dl (3.5-5.0); Alkaline Phosphatase 66 U/L (38-126); Blood Urea Nitrogen 13 mg/dl (9-20); Calcium 9.5 mg/dl (8.4-10.2); Carbon Dioxide 25 mmol/L (22-30); Chloride 96 mmol/L (98-107); Estimated Creatinine Clearance 67 ml/min; Glucose 99 mg/dl (70-99); Potassium 3.9 mmol/L (3.5-5.1); Sodium 133 mmol/L (135-145); Total Bilirubin 0.5 mg/dl (0.2-1.3); Total Protein 6.6 g/dl (6.3-8.2); eGFR > 60.00
[2023-12-02 01:27] LABS: % Basophils 0.4 % (0-2); % Immature Granulocytes 1.4 % (0-0.5); % Lymphocytes 18.9 % (20.5-51.1); % Monocytes 10.2 % (1.7-9.3); % Neutrophils 60.1 % (42.2-75.2); Absolute Eosinophils 0.8 10^3/uL (0-0.7); Absolute Immature Granulocytes 0.1 10^3/uL (0-0.05); Absolute Lymphocytes 1.7 10^3/uL (1.2-3.4); Absolute Monocytes 0.9 10^3/uL (0.1-0.6); Absolute Neutrophils 5.5 10^3/uL (1.4-6.5); Hematocrit 33.9 % (39.0-52.0); Hemoglobin 12.1 g/dL (13.0-18.0); Mean Corp Hgb Conc. 35.7 g/dL (33.0-37.0); Mean Corpuscular Volume 86.9 fL (80.0-94.0); Mean Platelet Volume 9.3 fL (7.4-10.4); Nucleated Red Blood Cells % 0 % (-); Platelet Count 390 10^3/uL (130-400); Red Cell Dist. Width 14.2 % (11.5-14.5); White Blood Cell Count 9.2 10^3/uL (4.8-10.8)
--- NOTE | 2023-12-02 02:28 | ED.GENMED ---
Addendum entered and electronically signed by Rafiq Snyder DO 12/02/23 12:26:
Signed out pending physical therapy evaluation I did review the case physical therapy earlier patient is ataxic unsafe to go home I did order CT of the head was unremarkable check EKG patient states he has had trouble walking for about 4 5 days meds
have been changed had A-fib after his procedure, this point I believe will be prudent to admit him to the hospital
Original Note:
History of Present Illness
General
Chief Complaint: Abdominal Pain
Source: patient and records
Exam Limitations: none
Time Seen by Provider: 12/02/23 02:10
Nursing documentation reviewed up to this point in time: agreed with
History of Present Illness
History of Present Illness:
68-year-old male with extensive history as documented presents for evaluation of abdominal pain and generalized weakness. Patient is notably status post left lower lobectomy on 11/05/[address] Livingston for lung cancer. Patient reports he has had
about 2 weeks of generalized abdominal pain somewhat worse in the lower abdomen. He reports associated constipation. Denies nausea vomiting or diarrhea. He has noticed that when he does have a bowel movement they seem to be dark and he describes
them as tarry. No bright red blood. In addition to GI issues he says he has been having issues with generalized weakness�he says that he does not have the strength to get up and move around. He has been using a walker recently to support himself
but has still had a few minor falls due to his lack of strength. No serious injuries or head trauma from falls. With symptoms not improving he decided he should come to the emergency room to be evaluated. He has not had a fever or chills. Denies
urinary symptoms. He denies any other complaints.
Past History
Past History
ED Past Medical History: Cancer (Skin CA), HTN and Other (AAA, DVT, thyroid disorder, skin cancer, Cellulitis, Aspergers syndrome)
ED Past Surgical History: Tonsilectomy and Other (AAA repair, Right vein stripping, Left shoulder Mohs surgery)
Social History
Tobacco: Former smoker
Alcohol: None
Personal: Single
Living: alone
Employment: Retired
Family History
Family History: Other (Noncontributory)
Review of Systems
Review of Systems
All Other Systems: ROS reviewed and negative except as documented in HPI and ROS
Constitutional: Reports fatigue; Denies fever or chills
Respiratory: Denies cough or trouble breathing
Cardiac: Denies chest pain or palpitations
ABD/GI: Reports abdominal pain, constipated and black stools; Denies nausea, vomiting, diarrhea or bloody stools
: Denies flank pain
Musculoskeletal: Denies neck pain or back pain
Neurological: Denies headache
Phy Exam
Physical Exam
Physical Exam:
General: Awake, alert, oriented x3; no acute distress
Head: Normocephalic, atraumatic
Eyes: Conjunctiva normal, sclera anicteric
Throat: Airway intact, handling secretions
Neck: Trachea midline, supple without meningismus
Lungs: Scattered wheezing bilaterally; normal respiratory, normal work of breathing, normal pulse ox on room air
Heart: Regular rate and rhythm, no murmurs, gallops, or rubs appreciated
Abd: Soft, non distended, mild tenderness across the lower abdomen with no peritoneal signs; old bruises in the lower abdomen from heparin injections
Rectal: Dark brown stool Hemoccult negative, no bright red blood noted, no rectal masses or impaction
Neuro: No gross deficits
Skin: Scattered old appearing bruises but no signs of acute trauma
Extremities: No edema in extremities, equal pulses in all extremities
Scores
Heart Failure Risk
Heart Failure Risk Score: Not Applicable
Heart Score for Chest Pain Patients
STEMI patient?: Not applicable
Withdrawal Assessment of Alcohol
Withdrawal Assessment Completed?: Not applicable
Course
Orders/Labs/Results
Orders:
Orders
12/02/23 00:49
CMP [Comprehensive Metabolic Panel] Urgent
Complete Blood Count/With Diff Urgent
12/02/23 02:27
CT Abd/pelvis W Iv Cont Urgent
Comment:
Reason For Exam: lower abd pain
12/02/23 04:09
Bladder Scan- Treatment ONCE
12/02/23 04:36
Urinalysis Reflex To Culture Urgent
Date Specimen was Collected: 12/02/23
Time Specimen was Collected: 02:56
12/02/23 04:39
Acetaminophen [Tylenol] 650 mg PO NOW STA
Oxycodone [Roxicodone] 2.5 mg PO NOW STA
12/02/23 04:59
Case Management Consult ONCE
Case Management Consult: Senior Care Placement
Pt Eval And Treat Urgent
Activity Level: Ambulate
Abnormal Lab Results
12/02/23
00:49
RBC 3.90 L 10^6/uL
(4.70-6.10)
Hgb 12.1 L g/dL
(13.0-18.0)
Hct 33.9 L %
(39.0-52.0)
Abs Immat Gran (auto) 0.1 H 10^3/uL
(0-0.05)
Absolute Monos (auto) 0.9 H 10^3/uL
(0.1-0.6)
Absolute Eos (auto) 0.8 H 10^3/uL
(0-0.7)
Immature Gran % 1.4 H %
(0-0.5)
Lymphocytes % 18.9 L %
(20.5-51.1)
Monocytes % 10.2 H %
(1.7-9.3)
Eosinophils % 9.0 H %
(0-6)
Sodium 133 L mmol/L
(135-145)
Chloride 96 L mmol/L
(98-107)
12/02/23 00:49
12/02/23 00:49
Vital Signs
Initial and Last Documented VS:
Initial Vital Signs
BP
144/100
12/02/23 00:31
Last Documented Vital Signs
Temp Pulse Resp BP Pulse Ox
36.8 C 92 16 123/91 97
12/02/23 00:32 12/02/23 06:50 12/02/23 06:50 12/02/23 06:50 12/02/23 06:50
MDM/Problems Addressed
Differential Diagnosis Includes:
Constipation, colitis, diverticulitis, UTI, appendicitis less likely
MDM/Problems Addressed:
68-year-old male presents for evaluation of lower abdominal pain for the past 2 weeks associated with constipation and dark stools (heme-negative today). Also reports generalized weakness worsening. Vitals and exam as above. Will place an IV
check labs including a CBC and a CMP. Check urinalysis. Check CT abdomen pelvis. Monitor closely reassess after the above.
Labs reviewed: CBC shows stable marginal anemia with a hemoglobin of 12.1. CMP no clinically significant abnormalities. Awaiting rest of workup.
CT shows no acute pathology but does show markedly distended bladder. Patient returned from CT and voided but unfortunately postvoid residual was over a liter. Alonzo catheter placed and drained for about 1500 cc. Patient reports significant
improvement in his abdominal pain thereafter. He still however is complaining of severe generalized weakness. Will send off a urinalysis.
Urinalysis negative for infection. Patient very concerned about going home given his degree of generalized weakness. His vitals are normal, workup here has been reassuring aside from urinary retention which has been treated with Alonzo catheter.
He is already on Flomax, has been constipated recently low which likely is contributing to urinary retention and so we can start him on a bowel regiment. He will need to follow-up with urology. Will have PT evaluate patient and residential case manager work
to see if patient can qualify for short-term rehab/SNF with weakness and multiple recent falls.
Chronic conditions affecting care:
Lung cancer status post recent surgery
*Radiology
Radiology exam reviewed: radiology read reviewed
*Pulse Oximetry
Patient hypoxic: no
*Critical Care Note
Total Time (30-74mins, 75-104mins- exclusive of procedures): Not Applicable
Data Reviewed
Review of Other/Old Records Reveals: Labs, Records and Discharge Summary
Source: patient and records
ED Attending Note
-
Portions of this chart may have been created with voice recognition software.� Occasional wrong word or��sound alike� substitutions may have occurred due to the inherent limitations of voice recognition software.
Discharge Plan
Departure
Patient with high blood pressure during this ER visit?: Yes
Discharge Problem:
Acute urinary retention, Generalized weakness, Constipation
Instructions: Constipation, Adult (DC), How to Care for Your Alonzo Catheter, Male
Prescriptions:
New
sennosides-docusate sodium [Senna-S] 8.6-50 mg tablet
1 tab-cap PO HS Qty: 30 0RF
No Action
amlodipine 2.5 MG tablet
2.5 mg PO DAILY
alprazolam 0.5 MG tablet
0.5 mg PO BID PRN (Reason: Mental Health/Anxiety)
Patient Comments:
11/02/2021: last filled 09/02/21, 60 tabs for 30 days from [facility]
magnesium oxide 250 MG tablet
250 - 500 mg PO QPM
cholecalciferol (vitamin D3) 125 MCG tablet,disintegrating
5,000 unit PO DAILY
aspirin [Adult Aspirin Regimen] 81 MG tablet,delayed release (DR/EC)
81 mg PO DAILY
clopidogrel 75 MG tablet
75 mg PO DAILY Qty: 60 0RF
zinc acetate 50 mg (zinc) Capsule
50 mg PO DAILY
selenium 200 mcg Tablet
200 mcg PO DAILY
alpha lipoic acid 300 mg Capsule
300 mg PO BID
tamsulosin 0.4 MG capsule
0.4 mg PO HS
losartan-hydrochlorothiazide 50-12.5 mg Tablet
1 tab PO DAILY
albuterol sulfate 90 mcg/actuation Hfa Aerosol Inhaler
2 puff INHALATION Q6H PRN (Reason: SOB)
acetaminophen 325 mg Tablet
650 mg PO Q6H PRN (Reason: pain)
metoprolol succinate [Toprol XL] 25 mg tablet extended release 24 hr
25 mg PO DAILY Qty: 30 0RF
amiodarone 200 mg tablet
200 mg PO DAILY Qty: 14 0RF
oxycodone 5 mg capsule
2.5 mg PO Q8H PRN (Reason: Severe pain) Qty: 7 0RF
acetaminophen [Tylenol] 325 mg capsule
650 mg PO Q6H PRN (Reason: mild pain) Qty: 60 0RF
Referrals:
James Martínez MD [Active] - Follow up in 5-7 days (Urology--follow up within next week)
Edu Acuna DO [Family Provider] -
Activity Restrictions/Additional Instructions:
Thank you for visiting the Emergency Department at [facility].
1. Please schedule a follow up appointment as directed. Call first thing tomorrow morning to make an appointment.
2. If indicated, please take your medications as instructed and indicated on discharge paperwork.
3. If any of your symptoms do not improve, or persist, or become more severe within 6-12 hours, please return to the emergency department for further care.
4. Please return to the emergency department if you develop a headache, neck pain/stiffness, fever greater than 100.4F, chest pain, shortness of breath, persistent nausea, vomiting, slurred speech, difficulty walking, numbness/tingling, weakness,
signs of infection or any other symptoms that are worrisome to you.
Please call [phone] if you have any questions.
Interventions
Interventions:
*Risk Screen - Suicide Last Done: 12/02/23 00:38
*General Assessment Last Done: 12/02/23 00:41
*Neglect/Abuse Screening Last Done: 12/02/23 00:40
ED- Fall Risk Assessment Last Done: 12/02/23 00:44
*ED COVID-19 Vaccine History Last Done: 12/02/23 00:43
LH-Ktpkum-Gvnmwzaetw Assessment Last Done: 12/02/23 00:44
Discharge Date and Time
Print Language: ITALIAN
[2023-12-02] MEDS: TYLENOL 650 MG PO (04:45)
[2023-12-02] MEDS: ROXICODONE 2.5 MG PO (04:45)
[2023-12-02 04:56] LABS: Urine Albumin Negative (Neg - Trace); Urine Bilirubin Negative (Negative); Urine Character Clear (Clear); Urine Color Yellow; Urine Glucose Negative (Negative); Urine Ketone Negative (Negative); Urine Leukocyte Negative (Negative); Urine Nitrite Negative (Negative); Urine Occult Blood Negative (Negative); Urine Urobilinogen Negative (Neg - 1+)
--- NOTE | 2023-12-02 09:04 | CM ---
CM consult placed for placement of patient. Chart reviewed. CM introduced self and role. Patient shared that he was walking 'fine' up until a few days ago. He stated that he would get dizzy and become off balance. Patient wanted to know if he would
be admitted or not. CM shared the knowledge she knew. CM explained that PT was consulted and would assess patient in room. They would then give a recommendation: go home with no services, go home with home health care or STR. Patient is straight
medicare and was admitted from 11/04 to 11/22.
CM handed patient a list of several SNFs in the [facility]. Patient asked if he'd be eligible for [facility]. CM is currently researching the answer to that question.
--- NOTE | 2023-12-02 12:18 | ED.GENMED ---
History of Present Illness
General
Chief Complaint: Abdominal Pain
Time Seen by Provider: 12/02/23 02:10
Past History
Past History
ED Past Medical History: Cancer (Skin CA), HTN and Other (AAA, DVT, thyroid disorder, skin cancer, Cellulitis, Aspergers syndrome)
ED Past Surgical History: Tonsilectomy and Other (AAA repair, Right vein stripping, Left shoulder Mohs surgery)
Social History
Tobacco: Former smoker
Alcohol: None
Personal: Single
Living: alone
Employment: Retired
Family History
Family History: Other (Noncontributory)
Course
Orders/Labs/Results
Orders:
Orders
12/02/23 00:49
CMP [Comprehensive Metabolic Panel] Urgent
Complete Blood Count/With Diff Urgent
12/02/23 02:27
CT Abd/pelvis W Iv Cont Urgent
Comment:
Reason For Exam: lower abd pain
12/02/23 04:09
Bladder Scan- Treatment ONCE
12/02/23 04:36
Urinalysis Reflex To Culture Urgent
Date Specimen was Collected: 12/02/23
Time Specimen was Collected: 02:56
12/02/23 04:39
Acetaminophen [Tylenol] 650 mg PO NOW STA
Oxycodone [Roxicodone] 2.5 mg PO NOW STA
12/02/23 04:59
Case Management Consult ONCE
Case Management Consult: Snf Placement
Pt Eval And Treat Urgent
Activity Level: Ambulate
12/02/23 11:21
CT Head W/o Iv Contrast Urgent
Comment:
Reason For Exam: ataxia
12/02/23 12:17
Electrocardiogram (*1) Urgent
Reason for Study: Abnormal EKG
EKG- Treatment ONCE
CR Chest - 2 Views Urgent
Comment:
Reason For Exam: s.p sx
Abnormal Lab Results
12/02/23
00:49
RBC 3.90 L 10^6/uL
(4.70-6.10)
Hgb 12.1 L g/dL
(13.0-18.0)
Hct 33.9 L %
(39.0-52.0)
Abs Immat Gran (auto) 0.1 H 10^3/uL
(0-0.05)
Absolute Monos (auto) 0.9 H 10^3/uL
(0.1-0.6)
Absolute Eos (auto) 0.8 H 10^3/uL
(0-0.7)
Immature Gran % 1.4 H %
(0-0.5)
Lymphocytes % 18.9 L %
(20.5-51.1)
Monocytes % 10.2 H %
(1.7-9.3)
Eosinophils % 9.0 H %
(0-6)
Sodium 133 L mmol/L
(135-145)
Chloride 96 L mmol/L
(98-107)
12/02/23 00:49
12/02/23 00:49
Vital Signs
Initial and Last Documented VS:
Initial Vital Signs
BP
144/100
12/02/23 00:31
Last Documented Vital Signs
Temp Pulse Resp BP Pulse Ox
98.2 F 88 18 138/93 99
12/02/23 00:32 12/02/23 11:00 12/02/23 11:00 12/02/23 11:00 12/02/23 05:00
*Radiology
Radiology exam reviewed: radiology read reviewed
*Pulse Oximetry
Patient hypoxic: no
*EKG
Interpreted by ED Provider?: Yes
Interpretation: abnormal
Comparison EKG: no comparison EKG present
Heart Rate: 78
Rate: normal
Rhythm: sinus
Ischemia: non-specific ST changes
*[employer] Trader Interpretation
Rate: normal
Interpretation: normal
Heart Rate: 78
Rhythm: sinus
*Critical Care Note
Total Time (30-74mins, 75-104mins- exclusive of procedures): Not Applicable
Update Note
Update Note:
12:30 PM signout pending reevaluation from PT case management reviewed with physical therapist patient is ataxic, unsafe for discharge, reviewed with the patient this happened in the past for 5 days, he has a Alonzo catheter inserted, I did order a
CT of the head which is unremarkable, will check EKG, his inciting event is unclear, I do believe this point it would be prudent admitted to the hospital
ED Attending Note
-
Portions of this chart may have been created with voice recognition software.� Occasional wrong word or��sound alike� substitutions may have occurred due to the inherent limitations of voice recognition software.
Discharge Plan
Departure
Patient Disposition: Admit
Date of Disposition: 12/02/23
Time of Disposition: 12:25
Admit to: Med/Surg
Presentation/result/management discussed w/ accepting MD/DO: Hospitalist
Patient with high blood pressure during this ER visit?: Yes
Condition: Good
Covid-19: Not Applicable
Discharge Problem:
Acute urinary retention, Generalized weakness, Constipation, Ataxia
Instructions: Constipation, Adult (DC), How to Care for Your Alonzo Catheter, Male
Prescriptions:
New
sennosides-docusate sodium [Senna-S] 8.6-50 mg tablet
1 tab-cap PO HS Qty: 30 0RF
No Action
amlodipine 2.5 MG tablet
2.5 mg PO DAILY
alprazolam 0.5 MG tablet
0.5 mg PO BID PRN (Reason: Mental Health/Anxiety)
Patient Comments:
11/02/2021: last filled 09/02/21, 60 tabs for 30 days from [facility]
magnesium oxide 250 MG tablet
250 - 500 mg PO QPM
cholecalciferol (vitamin D3) 125 MCG tablet,disintegrating
5,000 unit PO DAILY
aspirin [Adult Aspirin Regimen] 81 MG tablet,delayed release (DR/EC)
81 mg PO DAILY
clopidogrel 75 MG tablet
75 mg PO DAILY Qty: 60 0RF
zinc acetate 50 mg (zinc) Capsule
50 mg PO DAILY
selenium 200 mcg Tablet
200 mcg PO DAILY
alpha lipoic acid 300 mg Capsule
300 mg PO BID
tamsulosin 0.4 MG capsule
0.4 mg PO HS
losartan-hydrochlorothiazide 50-12.5 mg Tablet
1 tab PO DAILY
albuterol sulfate 90 mcg/actuation Hfa Aerosol Inhaler
2 puff INHALATION Q6H PRN (Reason: SOB)
acetaminophen 325 mg Tablet
650 mg PO Q6H PRN (Reason: pain)
metoprolol succinate [Toprol XL] 25 mg tablet extended release 24 hr
25 mg PO DAILY Qty: 30 0RF
amiodarone 200 mg tablet
200 mg PO DAILY Qty: 14 0RF
oxycodone 5 mg capsule
2.5 mg PO Q8H PRN (Reason: Severe pain) Qty: 7 0RF
acetaminophen [Tylenol] 325 mg capsule
650 mg PO Q6H PRN (Reason: mild pain) Qty: 60 0RF
Referrals:
James Martínez MD [Active] - Follow up in 5-7 days (Urology--follow up within next week)
Edu Acuna DO [Family Provider] -
Activity Restrictions/Additional Instructions:
Thank you for visiting the Emergency Department at [facility].
1. Please schedule a follow up appointment as directed. Call first thing tomorrow morning to make an appointment.
2. If indicated, please take your medications as instructed and indicated on discharge paperwork.
3. If any of your symptoms do not improve, or persist, or become more severe within 6-12 hours, please return to the emergency department for further care.
4. Please return to the emergency department if you develop a headache, neck pain/stiffness, fever greater than 100.4F, chest pain, shortness of breath, persistent nausea, vomiting, slurred speech, difficulty walking, numbness/tingling, weakness,
signs of infection or any other symptoms that are worrisome to you.
Please call [phone] if you have any questions.
Interventions
Interventions:
*Risk Screen - Suicide Last Done: 12/02/23 00:38
*General Assessment Last Done: 12/02/23 00:41
*Neglect/Abuse Screening Last Done: 12/02/23 00:40
ED- Fall Risk Assessment Last Done: 12/02/23 00:44
*ED COVID-19 Vaccine History Last Done: 12/02/23 00:43
RF-Xopvfl-Bxjxggccry Assessment Last Done: 12/02/23 00:44
Discharge Date and Time
Print Language: ZIMBABWEAN
--- NOTE | 2023-12-02 12:46 | HPS.HSE ---
Family Physician
-
Family Physician: Edu Acuna
Chief Complaint
-
weakness and gait dysfunction
History of Present Illness
HPI
68M Robotic assisted thoracic surgery [RATS] left lower lobectomy and Lymph node resection for Left lower lobe adenocarcinoma Dc'd on 11/22 from CTS service ago seen at ER for weakness
- report black tarry stool gradual weakness cesar last 5 days associated with acute ambulatory dysfunction
Medical History
Past Medical History
Past Medical History: Reports Cancer ( Left lower lobe adenocarcinoma), HTN, Hypothyroidism, Psychiatric (anxiety , depression ) and Other (vit D def )
Past Surgical History: Reports Other (Robotic assisted thoracic surgery [RATS] left lower lobectomy and Lymph node resection)
Social History
Tobacco: Former Smoker ([id number] 2020))
Personal:
Living: With Family
Family History
Family History: Not pertinent
Allergies / Home Medications
Allergies reflects when Allergies were last updated in [facility].
Home Medications with original date entered in [facility]
Allergy/Medication List:
Allergies
Allergy/AdvReac Type Severity Reaction Status Date / Time
clarithromycin [From Biaxin] Allergy Tachycardia Verified 10/16/23 14:57
clindamycin Allergy Restlessness, Verified 10/16/23 14:57
Heart
bounding
Penicillins Allergy Unknown Verified 10/16/23 14:57
Home Medications
alprazolam 0.5 mg tablet 0.5 mg PO BID PRN Mental Health/Anxiety 11/03/20
amlodipine 2.5 mg tablet 2.5 mg PO DAILY Blood pressure 11/03/20
cholecalciferol (vitamin D3) 125 mcg (5,000 unit) disintegrating tablet 5,000 unit PO DAILY Supplement 11/03/20
magnesium oxide 250 - 500 mg PO QPM Supplement 11/03/20
aspirin 81 mg tablet,delayed release (Adult Aspirin Regimen) 81 mg PO DAILY Blood clot prevention/tx 12/07/20
clopidogrel 75 mg tablet 75 mg PO DAILY #60 tabs 12/13/20
alpha lipoic acid 300 mg capsule 300 mg PO BID Supplement 11/02/21
selenium 200 mcg tablet 200 mcg PO DAILY Supplement 11/02/21
tamsulosin 0.4 mg capsule 0.4 mg PO HS Urinary Issue 11/02/21
zinc acetate 50 mg (zinc) capsule 50 mg PO DAILY Supplement 11/02/21
losartan 50 mg-hydrochlorothiazide 12.5 mg tablet 1 tab PO DAILY Blood Pressure 06/08/23
albuterol sulfate 90 mcg/actuation aerosol inhaler 2 puff inhalation Q6H PRN SOB 09/24/23
acetaminophen 325 mg tablet 650 mg PO Q6H PRN pain 09/26/23
acetaminophen 325 mg capsule (Tylenol) 650 mg (2 x 325 mg) PO Q6H PRN mild pain #60 caps 11/23/23
amiodarone 200 mg tablet 200 mg PO DAILY Arrhythmia #14 tabs 11/23/23
metoprolol succinate 25 mg tablet,extended release 24 hr (Toprol XL) 25 mg PO DAILY Blood pressure #30 tabs 11/23/23
oxycodone 5 mg capsule 2.5 mg (1/2 x 5 mg) PO Q8H PRN Severe pain #7 caps 11/23/23
Review of Systems
-
Constitutional: Reports Fatigue
EENT: Reports No Symptoms
Respiratory: Reports No Symptoms
Cardiac: Reports No Symptoms
Abdomen/GI: Reports No Symptoms
: Reports No Symptoms
Musculoskeletal: Reports No Symptoms
Skin: Reports No Symptoms
Neurological: Reports Weakness
Endocrine: Reports No Symptoms
Hematologic/Lymphatic: Reports No Symptoms
Psych: Reports No Symptoms
Physical Exam
Vital Signs
Vital Signs
Temp Pulse Resp BP Pulse Ox
98.6 F 82 12 137/75 97
12/02/23 10:00 12/02/23 12:04 12/02/23 12:04 12/02/23 12:04 12/02/23 12:04
Physical Exam
General: Well Developed, Well Nourished, No Apparent Distress, Comfortable and Conversant
HEENT: NormoCephalic, Moist mucous membranes and Atraumatic
Respiratory: Clear
Cardiac: S1/S2 and Regular Rhythm; No Murmur or Rub
GI: Soft, Non Tender, Non Distended and Normal Bowel Sounds; No Organomegaly
Rectal: Deferred by Provider
Genito-urinary: Alonzo (clear light yelllow urine )
Musculoskeletal: No Clubbing, No Cyanosis and No Edema
Skin: No Rash
Neuro: Nonfocal/grossly intact
Laboratory Results
-
12/02/23 00:49
12/02/23 00:49
Laboratory Results
Total Bilirubin 0.5 mg/dl (0.2-1.3) 12/02/23 00:49
AST 34 U/L (17-59) 12/02/23 00:49
ALT 30 U/L (0-50) 12/02/23 00:49
Alkaline Phosphatase 66 U/L (38-126) 12/02/23 00:49
Data Reviewed
-
CT Scan: Report Reviewed by me
Lab Data: Labs Reviewed by me
Old Records: Reviewed
Impression/Plan
-
Data
Hgb 12.1 ; stable
Na 133
Cl 96
Cr 1.1 eGFR >60
NEG UA
HCT: No evidence of acute intracranial abnormality.
CT AP :
No acute abnormality.
No BWO.
Nl GB and appendix.
Severely distended bladder
Subacute emphysema due to recent surgery
Last hospitalist admission
Date of Admission: 11/05/23- Date of Discharge: 11/23/23 from CTS service
1. Robotic assisted thoracic surgery [RATS] left lower lobectomy and Lymph node resection
Primary Diagnosis:
1. Left lower lobe adenocarcinoma
Secondary Diagnoses:
1. Lung cancer
2. Abdominal aortic aneurysm status post EVAR
3. Hypertension
4. Depression/anxiety
5. Hypothyroidism
6. BPH
7. History of bronchitis
8. History of tobacco abuse, quit in 2020
9. Asbestos exposure
ASSESSMENT & PLAN
Pending Rx reconciliation
Acute UR
Straight cath output 1.5L
Placed indwelling F cath
HX BPH
- NEG UA
- c/w FACILITY DESIGNER Flomax
Severely deconditioning s/p prolonged hospitalization
Gradual weakness associated with acute ambulatory dysfunction
- Empiric IVF
- PT/OT
- CRM consult for DC planning
Report black tarry stool
Stable Hgb
Stable VSS
- stool for HoB
- c/w ASA but hold of Plavix incase POS HoB stool
Benign HTN:
- Hold off HCTZ
Conditions present prior to admission: Pending Rx reconciliation
Anxiety.
Depression.
Hypothyroid.
Vitamin D deficiency.
BPH.
Lung cancer.
Chronic bronchitis.
DVT Px: SCD
Code: Full
IP MS
--- NOTE | 2023-12-02 12:51 | CM ---
SNF referrals sent to:
[facility]
CM also called [facility]'s admissions department and left a VM, including CM's telephone number.
Shared this information above with patient who is adamant about going to [facility]. CM explained the admissions department is not opened on the weekend, but they would be opened tomorrow. CM also shared that a VM was left with [facility]'s admissions
department. CM explained that a
PM&R consult would also need to placed and another assessment would need to performed by the PM&R physician. Patient verbalized understanding and in agreement with this plan.
Patient would like to hold off accepting an SNF and would like to further pursue if [facility] is an option for him or not.
Attending physician made aware of above information.
--- NOTE | 2023-12-02 12:58 | CM ---
Patient lives with his significant other and her mother. They have a multi- level (2-story home). There are 3 steps to enter. He has several steps to enter into the bathroom. Before being admitted to the hospital, he was independent, until up to a
few days. He usually drives. He denied any +SDOHs. He has an active PCP and pharmacy.
He was admitted from 11/04-11/23/23 and discharged home with [facility].
ANTICIPATED DISCHARGE PLAN: [facility] vs. SNF
[2023-12-02] MEDS: NSS 1000 IV (15:25)
--- NOTE | 2023-12-02 20:00 | PTCARENOTE ---
Pt arrived to unit aprox 1500 from ED. Pt slid over to bed from stretcher. Admission and assessment done. Pt instructed to ring for assistance.
[2023-12-02] MEDS: FLOMAX 0.4 MG PO (20:40)
[2023-12-02] MEDS: XANAX 0.5 MG PO (22:03)
[2023-12-03] VITALS (11 sets, daily range): BP systolic 118–156; BP diastolic 77–95; PULSE 77; O2SAT 98; BMI 22.1
[2023-12-03] MEDS: NSS 1000 IV ×2 (04:03→18:17)
[2023-12-03 08:23] LABS: Hematocrit 34.2 % (39.0-52.0); Hemoglobin 12.3 g/dL (13.0-18.0); Mean Corpuscular Hgb 31.2 pg (27.0-31.0); Mean Corpuscular Volume 86.8 fL (80.0-94.0); Mean Platelet Volume 9.1 fL (7.4-10.4); Platelet Count 367 10^3/uL (130-400); Red Blood Cell Count 3.94 10^6/uL (4.70-6.10); Red Cell Dist. Width 14.2 % (11.5-14.5); White Blood Cell Count 8.9 10^3/uL (4.8-10.8)
[2023-12-03] MEDS: COZAAR 25 MG PO (08:30)
[2023-12-03] MEDS: ASPIR LOW (ENTERIC COATED) 81 MG PO (08:30)
[2023-12-03] MEDS: NORVASC 2.5 MG PO (08:31)
--- NOTE | 2023-12-03 08:35 | VNURNOTE ---
Chart reviewed. Patient is current with [facility] nursing. Will continue to follow hospital course and DC plans.
[2023-12-03] MEDS: XANAX 0.5 MG PO ×2 (08:46→14:55)
[2023-12-03 08:53] LABS: Blood Urea Nitrogen 12 mg/dl (9-20); Calcium 9.1 mg/dl (8.4-10.2); Carbon Dioxide 22 mmol/L (22-30); Chloride 99 mmol/L (98-107); Estimated Creatinine Clearance 89 ml/min; Glucose 94 mg/dl (70-99); Potassium 4.2 mmol/L (3.5-5.1); Sodium 136 mmol/L (135-145); eGFR > 60.00
[2023-12-03] MEDS: ProAIR HFA INHALER 2 PUFF INH (09:07)
[2023-12-03 09:41] LABS: Hepatitis C Antibody Negative (Negative)
--- NOTE | 2023-12-03 14:07 | PTCARENOTE ---
Patient refused amiodarone and metoprolol this am. Dr. Pena made aware. Patient reports he has not taken those medications since he was discharged.
[2023-12-03] MEDS: TYLENOL 650 MG PO (15:22)
--- NOTE | 2023-12-03 16:05 | W.PN.HOSP.TC ---
Today's Communication/Plan
-
Neuro evaluation
Assessment / Plan
Assessment / Plan
Last hospitalist admission
Date of Admission: 11/05/23- Date of Discharge: 11/23/23 from CTS service
1. Robotic assisted thoracic surgery [RATS] left lower lobectomy and Lymph node resection
Primary Diagnosis:
1. Left lower lobe adenocarcinoma
Secondary Diagnoses:
1. Lung cancer
2. Abdominal aortic aneurysm status post EVAR
3. Hypertension
4. Depression/anxiety
5. Hypothyroidism
6. BPH
7. History of bronchitis
8. History of tobacco abuse, quit in 2020
9. Asbestos exposure
ASSESSMENT & PLAN
Pending Rx reconciliation
Acute UR
Straight cath output 1.5L
Placed indwelling F cath
HX BPH
- NEG UA
- c/w OIL SEPARATOR Flomax
Pt goes to Dr. Chung
Severely deconditioning s/p prolonged hospitalization
Gradual weakness associated with acute ambulatory dysfunction
concern regarding leg weakness, could weakness and urinary retention be related in pt with recent hospitalization 11/04-11/23/23 for adenocarcinoma of lung
will request neuro evaluation, discussed with Dr. Latham
- Empiric IVF
- PT/OT
- CRM consult for DC planning
Report black tarry stool
Stable Hgb
Stable VSS
- stool for HoB
- c/w ASA but hold of Plavix incase POS HoB stool
Benign HTN:
- Hold off HCTZ
Conditions present prior to admission: Pending Rx reconciliation
Anxiety.
Depression.
Hypothyroid.
Vitamin D deficiency.
BPH.
Lung cancer.
Chronic bronchitis.
DVT Px: SCD
Code: Full
IP MS
Anticipated Discharge: 24 - 48 hours
Subjective/Interval History
-
Date of Service: December 03, 2023
Pt admitted with bladder outpet symptoms, but also concerned about 4-5 day hx of profound leg weakness
Objective Data
-
Labs:
Laboratory Results
12/03/23
07:50
WBC 8.9
Hgb 12.3 L
Hct 34.2 L
Plt Count 367
Sodium 136
Potassium 4.2
Chloride 99
Carbon Dioxide 22
BUN 12
Creatinine 0.8
Glucose 94
Calcium 9.1
Vital Signs:
Vital Signs
Temp Pulse Resp BP Pulse Ox
97.4 F 100 16 128/77 97
12/03/23 15:13 12/03/23 15:13 12/03/23 15:13 12/03/23 15:13 12/03/23 15:13
I&O
12/02/23 12/03/23 12/04/23
06:59 06:59 06:59
Intake Total 1720 / 1720
Output Total 1500 / 1500 4600 / 4600
Balance -1500 / -1500 -2880 / -2880
Review of Systems
-
History Source: Patient, Physician and Coordinated Provider
Constitutional: Denies Fever
EENT: Reports No Symptoms Reported
Respiratory: Reports No Symptoms
Cardiac: Reports No Symptoms
Abdomen/GI: Denies Abdominal Pain, Nausea or Vomiting
Genitourinary: Reports Difficulty Voiding
Musculoskeletal: Reports Muscle Weakness
Neuro: Denies Dizzy or Headache
Physical Exam
-
General: Well Developed, Well Nourished and No Apparent Distress
HEENT: Normocephalic, Atraumatic and Moist Mucous Membranes
Respiratory: Clear to Auscultation; Negative Wheezes, Rales or Rhonchi
Cardiac: Regular Rhythm and S1/S2
GI: Soft, Nontender and Nondistended
Musculoskeletal: No Clubbing, No Cyanosis and No Edema
Skin: Warm and Dry
Neuro: Awake, Alert and Oriented
--- NOTE | 2023-12-03 16:31 | CON.NEURO4 ---
Consultation - Neurology 4
-
CONSULTING PHYSICIAN: Godfrey Latham MDNeurology
REFERRING PHYSICIAN: Hospitalist
DICTATED BY: Godfrey Latham MD
DATE/TIME OF REQUEST: December 03, 2023
DATE/TIME OF CONSULTATION: December 03, 2023
Reason for Consultation: Weakness
History of Present Illness:
This is a 68 year old (right) handed (male/female) who has presented to the hospital with (chief complaint) of weakness. He gives a history of hypertension, AAA, depression, anxiety, found to have left lower lobe cavitary lesion that had increased
in size
He underwent bronchoscopy which was positive for malignant cells thought to have stage Ib lung cancer and underwent left lower lobectomy-
left lower lobe resection by Dr. Livingston. Postoperatively he returned to the CVICU with intermittent air leak(1+). He was started on subcu heparin due to preliminary results of being cancerous.
11/05 postoperative day 1, patient had increased subcut emphysema and an abdominal binder was placed. Suction was maintained. Alonzo was removed and beta-blockers were started due to increased PVCs and PACs.
11/06 postoperative day 2 patient had a persistent airleak and suction was maintained.
11/07 postoperative day #3 suction was decreased to -10 and repeat chest x-ray showed a trace pneumothorax.
11/08 postoperative day 4 morning chest x-ray showed a stable trace apical pneumothorax. Patient still had an intermittent airleak with cough. However he was trialed on water seal and had increased Crepitus therefore was placed back on suction.
Amiodarone was added for tacky arrhythmia.
11/09 postoperative day #5 patient remained on -15 mmHg of suction subcut emphysema was stable.
11/10 postoperative day #6 airleak resolved and he was placed on water seal, however, patient started complaining of pain and was placed back on suction.
11/11 postoperative day #7, chest tube was exchanged by Dr. Livingston and a zaragoza slit was made with wound VAC application. Subcu emphysema slightly improved after interventions.
11/12 postoperative day #8, suction was decreased to -10 mmHg subcu air continue to improve. Bowel regimen was started.
11/13 postoperative day 9 wound VAC was removed after multiple attempts of exchanging the sponge. He was trialed on a waterseal however he failed due to increased subcu air and discomfort.
11/14 postoperative day #10 there was a trace airleak while on suction and subcu emphysema got worse. Therefore suction was maintained.
11/15 postoperative day #11 a Heimlich valve was placed and patient tolerated for 20 minutes before complaining of 8 out of 10 chest pain therefore he was hooked back up to the Pleur-evac with suction.
11/16 postoperative day #12 subcu emphysema was worse compared to prior study therefore suction was increased to -20.
11/17 postoperative day #13 there was no air leak appreciated with cough or deep breaths continued suction with -20 of pressure. Subcu emphysema was stable.
11/18 postoperative day #14 patient tolerated Heimlich valve for 3 hours but repeat chest x-ray showed increased subcu emphysema and was placed back on suction with the Heimlich valve in place.
11/19 postoperative day #15 patient remains on Heimlich valve chest x-ray was stable.
11/20 postoperative day #16 chest x-ray remained stable .
11/22 postoperative day #18, patient remained stable on Heimlich valve and was discharged home .
Patient reports following discharge he has had generalized abdominal pain somewhat worse in the lower abdomen. He reports associated constipation. Denies nausea vomiting or diarrhea. He has noticed that when he does have a bowel movement they
seem to be dark and he describes them as tarry. No bright red blood.
In addition to GI issues he says he has been having issues with generalized weakness�he says that he does not have the strength to stand up and move around. He has been using a walker recently to support himself but has still had a few minor falls
due to his lack of strength. No serious injuries or head trauma from falls. Since his weakness persisted with difficulty emptying his bladder he decided he to come to the emergency room to be evaluated.
Following admission bladder was catheterized
Past Medical History: As above
Surgical History: Left Lower lobectomy
Family History: [place]
Social History: Quit smoking
Allergies: See addendum
Home Medications: Addendum
Review of Symptoms:
Patient denies any fever, headache, chest pain, shortness of breath, GI or symptoms.
�Per the HPI.�All systems are reviewed negative except progressive weakness
�-
Vital Signs:
The patient has a Temp 36.3 C [id number] Resp16 BP128/77 Pulse Ox 97
Physical Exam:
The patient is afebrile, heart sounds S1 and S2 are regular, and chest is clear to auscultation bilaterally.
- If not clear, describe.
Neurologic Examination:
The patient is awake, alert and oriented x 3. (He is able to follow commands and answer questions appropriately. There is no aphasia or dysarthria.
On cranial nerve assessment, pupils are 3 mm bilateral, round and reactive to light and accommodation. Visual lazaro are full. Extraocular movements are intact. Facial sensations are intact and bilaterally symmetrical, there is no facial asymmetry.
Hearing is intact bilaterally to normal conversation volume. Tongue palate and uvula are midline. Sternocleidomastoid strengths are full bilaterally.
Motor strengths are 4/5 bilateral upper extremities and 3/5 lower extremites. There is no drift or involuntary movement noted.
Deep tendon reflexes are absent bilateral upper and lower extremities and Babinski is absent bilaterally.
Sensations of pain, touch, temperature and vibration are impaired and asymmetrical. Coordination is intact by finger to nose bilaterally.
Rombergs + pat needs assist to stand. Needs two person assist to walk.
Lab Results: See addendum
Neuro Imaging: MRI Pending
Impression:
(Mr. ELAINA RODRÍGUEZ is a 68 year old M who has presented to the hospital with chief complaint). Weakness. 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
Differentials for the patient's presentation include:
1. Paraneoplastic [place] syndrome syndrome
2. Paraneoplastic neuropathy
3. Critical care neuropathy
4. Cervical myelopathy
Recommendations:
1. IVIG 0.4 g/kg body weight
2. MRI C-spine
3. MRI lumbar spine
4. Lumbar puncture
5. PT OT
6. Respiratory therapy
Discussed patient care with: Hospitalist
Allergies
-
Allergies
Allergy/AdvReac Type Severity Reaction Status Date / Time
clarithromycin [From Biaxin] Allergy Tachycardia Verified 10/16/23 14:57
clindamycin Allergy Restlessness, Verified 10/16/23 14:57
Heart
bounding
Penicillins Allergy Unknown Verified 10/16/23 14:57
Vital Signs and Labs
-
Vital Signs and Labs:
Vital Signs
Temp Pulse Resp BP Pulse Ox
36.3 C 100 16 128/77 97
12/03/23 15:13 12/03/23 15:13 12/03/23 15:13 12/03/23 15:13 12/03/23 15:13
Lab Results
12/03/23 07:50
12/03/23 07:50
Sodium 136 mmol/L (135-145) 12/03/23 07:50
Potassium 4.2 mmol/L (3.5-5.1) 12/03/23 07:50
BUN 12 mg/dl (9-20) 12/03/23 07:50
Glucose 94 mg/dl (70-99) 12/03/23 07:50
Calcium 9.1 mg/dl (8.4-10.2) 12/03/23 07:50
Medications
-
Active Medications
Generic Name Dose Route Start Last Admin
Trade Name Freq PRN Reason Stop Dose Admin
Acetaminophen 650 mg 12/03/23 08:51 12/03/23 15:22
Acetaminophen 325 Mg Tablet PO 12/31/23 08:50 650 mg
Q4HPRN PRN Administration
headache
Albuterol 2 puff 12/03/23 08:50 12/03/23 09:07
Albuterol Hfa [90 Mcg/Dose] Inhaler INH 2 puff
R Q4HPRN PRN Administration
shortness of breath
Protocol
Alprazolam 0.5 mg 12/02/23 15:04 12/03/23 14:55
Alprazolam 0.5 Mg Tablet PO 12/30/23 15:03 0.5 mg
BIDPRN PRN Administration
Mental Health/Anxiety
Amiodarone HCl 200 mg 12/03/23 08:00 12/03/23 08:40
Amiodarone 200 Mg Tablet PO 12/31/23 07:59 Not Given
DAILY CAMPBELL
Amlodipine Besylate 2.5 mg 12/03/23 08:00 12/03/23 08:31
Amlodipine 2.5 Mg Tablet PO 12/31/23 07:59 2.5 mg
DAILY CAMPBELL Administration
Aspirin 81 mg 12/03/23 08:00 12/03/23 08:30
Aspirin 81 Mg (Enteric Coated) Tablet PO 12/31/23 07:59 81 mg
DAILY CAMPBELL Administration
Bisacodyl 10 mg 12/02/23 15:04
Bisacodyl 10 Mg Rectal Suppository RECTAL 12/30/23 15:03
[id number] PRN
constipation
Sodium Chloride 1,000 mls @ 80 mls/hr 12/02/23 15:04 12/03/23 04:03
Nss IV 1,000 mls
.[id number] CAMPBELL Administration
Immune Globulin 30 gram 12/03/23 16:26
Immune Globulin (Calculator Uses Ibw) - Pharmacy To Place Order 0.4 gram/kg (30 gram) 12/03/23 16:27
IV
DIRECTED ONE
Losartan Potassium 25 mg 12/03/23 08:00 12/03/23 08:30
Losartan 25 Mg Tablet PO 12/31/23 07:59 25 mg
DAILY CAMPBELL Administration
Metoprolol Succinate 25 mg 12/03/23 08:00 12/03/23 08:40
Metoprolol 25 Mg Extended Release Tablet PO 12/31/23 07:59 Not Given
DAILY CAMPBELL
Polyethylene Glycol 17 grams 12/02/23 15:04
Polyethylene Glycol Powder 17 Grams Packet PO 12/30/23 15:03
DAILYPRN PRN
constipation
Senna/Docusate Sodium 1 tablet 12/02/23 15:04
Docusate W/Senna (Hien-Colace) Tablet PO 12/30/23 15:03
BIDPRN PRN
constipation
Sodium Chloride 0 flush 12/03/23 09:00
Sodium Chloride 0.9% (Flush) Syringe IV 12/31/23 08:59
PER PROTOCOL CAMPBELL
Tamsulosin HCl 0.4 mg 12/02/23 22:00 12/02/23 20:40
Tamsulosin 0.4 Mg Capsule PO 12/30/23 21:59 0.4 mg
HS CAMPBELL Administration
Home Medications
�Medication �Instructions �Recorded
amlodipine 2.5 mg tablet 2.5 mg PO DAILY Blood pressure 11/03/20
tamsulosin 0.4 mg capsule 0.4 mg PO HS Urinary Issue 11/02/21
losartan 50 mg-hydrochlorothiazide 1 tab PO DAILY Blood Pressure 06/08/23
12.5 mg tablet
albuterol sulfate 90 mcg/actuation 2 puff inhalation R Q6HPRN PRN SOB 09/24/23
aerosol inhaler
acetaminophen 325 mg tablet 650 mg PO Q6HPRN PRN mild pain 09/26/23
alprazolam 0.5 mg tablet 0.5 mg PO BID PRN anxiety 12/02/23
oxycodone 5 mg capsule 2.5 mg PO Q8HPRN PRN Severe pain 12/02/23
clopidogrel 75 mg tablet 75 mg PO DAILY Blood Clot 12/03/23
Prevention/Tx
[2023-12-03] MEDS: GAMMAGARD 300 IV (20:52)
[2023-12-03] MEDS: FLOMAX 0.4 MG PO (20:53)
[2023-12-04] VITALS (11 sets, daily range): BP systolic 105–140; BP diastolic 73–96; BMI 22.3
[2023-12-04] MEDS: XANAX 0.5 MG PO ×2 (02:38→13:27)
--- NOTE | 2023-12-04 07:21 | CON.MD ---
Consultation - Medical
-
see dictated note
pt with hx of bph and prior post op urinary retention
followed by dr ramos
recent thoracic surgery- readmitted with weakness and urinary retention (>1 liter)
was not taking his regular flomax dose
now there is some concern for [place]
plan
flomax 0.8mg
continue ugarte
given degree of retention and possible assc neurologic issues- would keep ugarte for 7-10 days- then outpt TOV
will follow
[2023-12-04] MEDS: ProAIR HFA INHALER 2 PUFF INH (09:25)
--- NOTE | 2023-12-04 09:25 | CM ---
PT OT indicated [facility] at [place].
Spoke with Sena at [facility] She will review chart and call back.
Additional SNF referral made if [facility] could not accept.
[facility] can accept.[facility] no bed.
Has Medicare.
PLAN Acute rehab VS SNF
[2023-12-04] MEDS: NORVASC 2.5 MG PO (09:44)
[2023-12-04] MEDS: COZAAR 25 MG PO (09:48)
[2023-12-04] MEDS: TYLENOL 650 MG PO (13:27)
--- NOTE | 2023-12-04 17:22 | W.PN.HOSP.TC ---
Today's Communication/Plan
-
adjust diet
PM&R consult
extensive review of situation with pt and later Dr. Rice
Assessment / Plan
Assessment / Plan
Last hospitalist admission
Date of Admission: 11/05/23- Date of Discharge: 11/23/23 from CTS service
1. Robotic assisted thoracic surgery [RATS] left lower lobectomy and Lymph node resection
Primary Diagnosis:
1. Left lower lobe adenocarcinoma
Secondary Diagnoses:
1. Lung cancer
2. Abdominal aortic aneurysm status post EVAR
3. Hypertension
4. Depression/anxiety
5. Hypothyroidism
6. BPH
7. History of bronchitis
8. History of tobacco abuse, quit in 2020
9. Asbestos exposure
ASSESSMENT & PLAN
Acute Urinary retention
concern for possible Guillan [place]
Straight cath output 1.5L
Placed indwelling F cath
HX BPH
- NEG UA
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
Pt goes to Dr. Chung
Severely deconditioning s/p prolonged hospitalization
Gradual weakness associated with acute ambulatory dysfunction
concern regarding leg weakness, could weakness and urinary retention be related in pt with recent hospitalization 11/04-11/23/23 for adenocarcinoma of lung
appreciate neuro evaluation, discussed with Dr. Latham, concern for Guillan [place]
- Empiric IVF
- PT/OT
- CRM consult for DC planning
to consider Acute Rehab, call placed to Dr. Rice, and extensively reviewed
?EMG
Report black tarry stool
Stable Hgb
Stable VSS
- stool for HoB
- c/w ASA but hold of Plavix in case POS HoB stool
Benign HTN:
- Hold off HCTZ
Conditions present prior to admission:
Anxiety.
Depression.
Hypothyroid.
Vitamin D deficiency.
BPH.
Lung cancer.
Chronic bronchitis.
Pt upset about diet, wants changed to regular
DVT Px: SCD
Code: Full
IP MS
Anticipated Discharge: > 48 hours
Subjective/Interval History
-
Date of Service: December 04, 2023
Believes legs may be slightly stronger today
Objective Data
-
Vital Signs:
Vital Signs
Temp Pulse Resp BP Pulse Ox
98.5 F 94 22 120/74 98
12/04/23 15:16 12/04/23 15:16 12/04/23 15:16 12/04/23 15:16 12/04/23 15:16
I&O
12/03/23 12/04/23 12/05/23
06:59 06:59 06:59
Intake Total 1720 / 1720 3600 / 3600
Output Total 4600 / 4600 4905 / 4905
Balance -2880 / -2880 -1305 / -1305
Review of Systems
-
History Source: Patient, Physician and Coordinated Provider
Constitutional: Denies Fever
EENT: Reports No Symptoms Reported
Respiratory: Reports No Symptoms
Cardiac: Reports No Symptoms
Abdomen/GI: Denies Abdominal Pain, Nausea or Vomiting
Genitourinary: Reports Difficulty Voiding
Musculoskeletal: Reports Muscle Weakness (of bilateral LE)
Neuro: Reports Weakness; Denies Dizzy or Headache
Physical Exam
-
General: Well Developed, Well Nourished and No Apparent Distress
HEENT: Normocephalic, Atraumatic and Moist Mucous Membranes
Respiratory: Clear to Auscultation; Negative Wheezes, Rales or Rhonchi
Cardiac: Regular Rhythm and S1/S2
GI: Soft, Nontender and Nondistended
Genito-urinary: Alonzo
Musculoskeletal: No Clubbing, No Cyanosis and No Edema
Skin: Warm and Dry
Neuro: Awake, Alert and Oriented
[2023-12-04] MEDS: GAMMAGARD 300 IV (19:35)
[2023-12-04] MEDS: FLOMAX 0.4 MG PO (19:36)
--- NOTE | 2023-12-04 21:46 | W.PN.NEURO.1 ---
Today's Communication / Plan
-
Continue IVIg 2/5
Attempt LP tomorrow
Neuro Assessment/Plan
Assessment
68 yr. old male with h/o lung cancer s/p lobectomy with complicated postop course who was admitted with progressive weakness difficulty standing and walking. Proximal weakness with areflexia
Plan
IVIg 2/5
MRI C-Spine and L-Spine completed
Refused LP
Subjective/Objective
Subjective Data
Date of Service: December 04, 2023
[address] received his first dose of IVIg and has tolerated it without issues. Weakness still persists. he has no new complaints. he agreed to lumbar puncture but refused it later
Objective Data
Vital Signs
Temp Pulse Resp BP Pulse Ox
36.9 C 81 22 114/74 98
12/04/23 15:16 12/04/23 21:16 12/04/23 15:16 12/04/23 21:16 12/04/23 15:16
Lab Results
12/03/23 07:50
12/03/23 07:50
Sodium 136 mmol/L (135-145) 12/03/23 07:50
Potassium 4.2 mmol/L (3.5-5.1) 12/03/23 07:50
BUN 12 mg/dl (9-20) 12/03/23 07:50
Glucose 94 mg/dl (70-99) 12/03/23 07:50
Calcium 9.1 mg/dl (8.4-10.2) 12/03/23 07:50
Patient Allergies
clarithromycin [From Biaxin] Allergy (Verified 10/16/23 14:57)
Tachycardia
clindamycin Allergy (Verified 10/16/23 14:57)
Restlessness, Heart bounding
Penicillins Allergy (Verified 10/16/23 14:57)
Unknown
Physical Exam
-
General: Well Developed, Well Nourished, No Apparent Distress and Comfortable
Eyes: Able to visualize OU and Unremarkable
HEENT: Normocephalic, Atraumatic and Anicteric
Neck: No Bruits Bilaterally and Full Range of Motion
Respiratory: Clear to Auscultation
Cardiac: Regular Rhythm and No Murmur
GI: Normal Bowel Sounds and Soft
Skin: Unremarkable and Warm
Extremities: No Clubbing, No Cyanosis and No Edema
Psych: Unremarkable and Intact Judgement/Insight
Extended Neurological Exam
Mood & Affect: Mood Unremarkable and Affect Unremarkable
Attention Span & Concentration: Awake, Alert, Interactive and No Difficulty with 2 Step Request
Memory: Unremarkable and Able to Recall
Tremor: Hand Tremor Absent and Head Tremor Absent
Involuntary Movement: None
Speech: Quality Unremarkable, Quantity Unremarkable and Rate of Production Unremarkable
Cranial Nerve II: Left Eye: Pupillary Reactivity Unremarkable, Pupillary Size Unremarkable and Visual Romero Grossly Intact
Cranial Nerve II: Right Eye: Pupillary Reactivity Unremarkable, Pupillary Size Unremarkable and Visual Romero Grossly Intact
Cranial Nerves III, IV, : Extraocular Movement: Extraocular Movement Full in all Directions
Cranial Nerve V: Facial Sensation: Intact to Light Touch
Cranial Nerve VII: Facial Symmetry: Normal Facial Symmetry
Cranial Nerve VIII: Hearing: Unremarkable Hearing to Normal Conversational Volume
Cranial Nerves IX, X: Palate Movement: Palate Elevation Symmetric
Cranial Nerve XI: Shoulder Shrug: Unremarkable
Cranial Nerve XII: Tongue Protusion: Midline
Muscle Strength, Overall: Reduced Throughout and Reduced Bilaterally (proximal weakness: LE>UE)
Muscle Bulk & Tone: Bulk Unremarkable and Tone Unremarkable
Pronator Drift: No Drift in Upper Extremities and No Drift in Lower Extremities
Deep Tendon Reflexes: Absent Throughout
Cold Sensation: Reduced
Vibration Sensation: Reduced
Touch Sensation: Pin Prick Reduced
Coordination: [id number] Testing Unremarkable and Reaches for Objects without Difficulty
Babinski Sign: Absent Bilaterally
Gait & Station: Up from Seated Without Problem, Up from Lying with Difficulty and Other (needs assist to stand and walk)
Data Reviewed
-
MRI Cervical Spine: Image Reviewed (C5C6 spinal stenosis)
MRI Lumbar Spine: Image Reviewed (Enhancement of thecal sac L1L2 c/w Guillain [place])
[2023-12-05] MEDS: XANAX 0.5 MG PO ×3 (00:26→20:59)
--- NOTE | 2023-12-05 04:08 | DOWNTIME ---
There was a [employer] Downtime on 12/05/2023 from 0100 to 12/05/2023 at 0355. Downtime documentation of patient's care, including medication administrations, has been reconciled in the electronic record per guidelines. Refer to the
patient's paper chart under the miscellaneous tab to see printed paper medication records and downtime forms.
[2023-12-05] MEDS: TYLENOL 650 MG PO ×3 (05:04→20:59)
[2023-12-05 06:00] VITALS: BMI 23.0
[2023-12-05 07:30] VITALS: BP 128/88
[2023-12-05] MEDS: COZAAR 25 MG PO (08:56)
[2023-12-05] MEDS: NORVASC 2.5 MG PO (08:56)
--- NOTE | 2023-12-05 09:33 | CM ---
PT OT indicated [facility] at [place].
Spoke with Sena at [facility] She review chart. PM&R requested and MD ordered.
Neuro involved.
May need LP.
Continues with IVIg infusions.
Has Alonzo.
Has Medicare.
PLAN Acute rehab VS SNF
--- NOTE | 2023-12-05 12:25 | W.PN.UPDATE ---
Update Note
Progress Note Update
Acute urinary retention
H/o BPH with LUTS
Alonzo catheter placed for large volume retention >1L
Given ongoing diagnostic testing by Neurology, no indication for immediate voiding trial
- Continue tamsulosin 0.8 mg daily
- Plan for outpatient voiding trial in office w/n 7-10 days (will coordinate at discharge)
--- NOTE | 2023-12-05 13:01 | W.PN.UPDATE ---
Update Note
Progress Note Update
Interprofessional Consultation Note
Department: Interventional Radiology
Patient Diagnosis: Guillain [place] Syndrome
In summary, we were asked to perform a lumbar puncture on this patient. We brought him down to our department yesterday and he refused. We attempted to perform the procedure today and patient wanted to wait until tomorrow. Clinical team was made
aware of the reason for delay. We will attempt to perform the procedure tomorrow if the patient is agreeable. I communicated this to the ordering neurologist
I personally reviewed the relevant clinical data and imaging, and discussed the findings and plan with the treatment team. I spent 15 minutes of medical consultative discussion and review.
More than half of my time was spend on data review including medical records, laboratory studies and relevant imaging.
I personally reviewed the relevant clinical data and consultative report provided by Dr. Godfrey Latham, who obtained verbal consent for this consultation.
[2023-12-05 15:41] VITALS: BP 117/72
--- NOTE | 2023-12-05 15:52 | W.PN.NEURO.1 ---
Today's Communication / Plan
-
Continue IVIG 04/23
Neuro Assessment/Plan
Assessment
68 yr. old male with h/o lung cancer s/p lobectomy with complicated postop course who was admitted with progressive weakness difficulty standing and walking. Proximal weakness with areflexia c/w Guillain [place] syndrome
Plan
IVIg 2/
MRI C-Spine and L-Spine completed
Refused LP after proceeding
Subjective/Objective
Subjective Data
Date of Service: December 05, 2023
Pat continues to receive IVIg without issues. Completed IVIg 03/26. Agreed to LP under fluoroscopy. Assured him its an open environment and not inside a magnet.
Objective Data
Vital Signs
Temp Pulse Resp BP Pulse Ox
37.0 C 92 18 117/72 96
12/05/23 15:41 12/05/23 15:41 12/05/23 15:41 12/05/23 15:41 12/05/23 15:41
Lab Results
12/03/23 07:50
12/03/23 07:50
Sodium 136 mmol/L (135-145) 12/03/23 07:50
Potassium 4.2 mmol/L (3.5-5.1) 12/03/23 07:50
BUN 12 mg/dl (9-20) 12/03/23 07:50
Glucose 94 mg/dl (70-99) 12/03/23 07:50
Calcium 9.1 mg/dl (8.4-10.2) 12/03/23 07:50
Patient Allergies
clarithromycin [From Biaxin] Allergy (Verified 10/16/23 14:57)
Tachycardia
clindamycin Allergy (Verified 10/16/23 14:57)
Restlessness, Heart bounding
Penicillins Allergy (Verified 10/16/23 14:57)
Unknown
Physical Exam
-
General: Well Developed, Well Nourished and No Apparent Distress
Eyes: Able to visualize OU, Unremarkable and Round OU
HEENT: Normocephalic, Atraumatic and Anicteric
Neck: Full Range of Motion
Respiratory: Clear to Auscultation
Cardiac: Regular Rhythm and No Murmur
GI: Normal Bowel Sounds, Soft and Non-distended
Skin: Unremarkable
Extremities: No Clubbing, No Cyanosis and No Edema
Psych: Unremarkable
Extended Neurological Exam
Mood & Affect: Mood Unremarkable and Affect Unremarkable
Attention Span & Concentration: Awake, Interactive and No Difficulty with 2 Step Request
Memory: Unremarkable
Tremor: Hand Tremor Absent
Involuntary Movement: None
Speech: Quality Unremarkable, Quantity Unremarkable and Rate of Production Unremarkable
Cranial Nerves III, IV, : Extraocular Movement: Extraocular Movement Full in all Directions
Cranial Nerve V: Facial Sensation: Intact to Light Touch
Cranial Nerve VII: Facial Symmetry: Normal Facial Symmetry
Cranial Nerve VIII: Hearing: Unremarkable Hearing to Normal Conversational Volume
Cranial Nerves IX, X: Palate Movement: Palate Elevation Symmetric
Cranial Nerve XI: Shoulder Shrug: Unremarkable
Cranial Nerve XII: Tongue Protusion: Midline
Muscle Strength, Overall: Full Throughout
Deep Tendon Reflexes: Unremarkable Throughout
Cold Sensation: Unremarkable
Vibration Sensation: Unremarkable
Touch Sensation: Unremarkable
Coordination: [id number] Testing Unremarkable and Reaches for Objects without Difficulty
Babinski Sign: Absent Bilaterally
Gait & Station: Up from Lying with Difficulty
--- NOTE | 2023-12-05 17:43 | W.PN.HOSP.TC ---
Today's Communication/Plan
-
CXR
await Lumbar Puncture
Physiatry consult
Assessment / Plan
Assessment / Plan
Last hospitalist admission
Date of Admission: 11/05/23- Date of Discharge: 11/23/23 from CTS service
1. Robotic assisted thoracic surgery [RATS] left lower lobectomy and Lymph node resection
Pt states he is due for a CXR and requests be done tomorrow
Primary Diagnosis:
1. Left lower lobe adenocarcinoma
Secondary Diagnoses:
1. Lung cancer
2. Abdominal aortic aneurysm status post EVAR
3. Hypertension
4. Depression/anxiety
5. Hypothyroidism
6. BPH
7. History of bronchitis
8. History of tobacco abuse, quit in 2020
9. Asbestos exposure
ASSESSMENT & PLAN
Acute Urinary retention
concern for possible Guillain [place]
Straight cath output 1.5L
Placed indwelling F cath
HX BPH
- NEG UA
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
Pt goes to Dr. Chung
Severely deconditioning s/p prolonged hospitalization
Gradual weakness associated with acute ambulatory dysfunction
concern regarding leg weakness, could weakness and urinary retention be related in pt with recent hospitalization 11/04-11/23/23 for adenocarcinoma of lung
appreciate neuro evaluation, discussed with Dr. Latham, concern for Guillain [place]
- Empiric IVF
- PT/OT
- CRM consult for DC planning
to consider Acute Rehab, call placed to Dr. Rice, and extensively reviewed
?EMG
Report black tarry stool
Stable Hgb
Stable VSS
- stool for HoB
- c/w ASA but hold of Plavix in case POS HoB stool
Benign HTN:
- Hold off HCTZ
Conditions present prior to admission:
Anxiety.
Depression.
Hypothyroid.
Vitamin D deficiency.
BPH.
Lung cancer.
Chronic bronchitis.
Pt upset about diet, wants changed to regular, was changed
DVT Px: SCD
Code: Full
IP MS
Anticipated Discharge: > 48 hours
Subjective/Interval History
-
Date of Service: December 05, 2023
Initially refused to have LP, now willing
Objective Data
-
Vital Signs:
Vital Signs
Temp Pulse Resp BP Pulse Ox
98.6 F 92 18 117/72 96
12/05/23 15:41 12/05/23 15:41 12/05/23 15:41 12/05/23 15:41 12/05/23 15:41
I&O
12/04/23 12/05/23 12/06/23
06:59 06:59 06:59
Intake Total 3600 / 3600 1440 / 1440
Output Total 4905 / 4905 3500 / 3500
Balance -1305 / -1305 -0 / -2060
Review of Systems
-
History Source: Patient, Physician and Coordinated Provider
Constitutional: Denies Fever
EENT: Reports No Symptoms Reported
Respiratory: Reports No Symptoms
Cardiac: Reports No Symptoms
Abdomen/GI: Denies Abdominal Pain, Nausea or Vomiting
Genitourinary: Reports Difficulty Voiding
Musculoskeletal: Reports Muscle Weakness (of bilateral LE)
Neuro: Reports Weakness; Denies Dizzy or Headache
Physical Exam
-
General: Well Developed, Well Nourished and No Apparent Distress
HEENT: Normocephalic, Atraumatic and Moist Mucous Membranes
Respiratory: Clear to Auscultation; Negative Wheezes, Rales or Rhonchi
Cardiac: Regular Rhythm and S1/S2
GI: Soft, Nontender and Nondistended
Genito-urinary: Alonzo
Musculoskeletal: No Clubbing, No Cyanosis and No Edema
Skin: Warm and Dry
Neuro: Awake, Alert and Oriented
[2023-12-05] MEDS: FLOMAX 0.4 MG PO (20:59)
[2023-12-05 22:15] VITALS: BP 141/91
[2023-12-05] MEDS: GAMMAGARD 300 IV (22:19)
[2023-12-05 22:46] VITALS: BP 141/91
[2023-12-05 23:16] VITALS: BP 137/82
[2023-12-05 23:47] VITALS: BP 134/82
[2023-12-06] VITALS (15 sets, daily range): BP systolic 84–151; BP diastolic 79–94; PULSE 90–96; O2SAT 98–100; BMI 20.8
[2023-12-06] MEDS: ProAIR HFA INHALER 2 PUFF INH (08:53)
--- NOTE | 2023-12-06 09:00 | RESPNOTE ---
patient states he has some blood in nasal passages, mostly dried. patient requests nasal spray for moisture.
[2023-12-06] MEDS: COZAAR 25 MG PO (10:25)
[2023-12-06] MEDS: NORVASC 2.5 MG PO (10:25)
[2023-12-06] MEDS: XANAX 0.5 MG PO ×2 (10:34→20:46)
--- NOTE | 2023-12-06 12:12 | W.PN.NEURO.1 ---
Today's Communication / Plan
-
Lumbar puncture under fluoroscopy
IVIG day 05/24
Neuro Assessment/Plan
Assessment
68 yr. old male with h/o lung cancer s/p lobectomy with complicated postop course who was admitted with progressive weakness difficulty standing and walking. 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
Plan
IVIg /
MRI C-Spine and L-Spine completed
Patient has agreed to undergoing lumbar puncture today he has been given Xanax prior to procedure
Subjective/Objective
Subjective Data
Date of Service: December 06, 2023
Patient feels stronger today with improved mobility in his legs. However still needs assist to stand and walk and is unsteady
Objective Data
Vital Signs
Temp Pulse Resp BP Pulse Ox
37.0 C 98 16 125/80 98
12/06/23 07:25 12/06/23 07:25 12/06/23 08:56 12/06/23 07:25 12/06/23 08:56
Lab Results
12/03/23 07:50
12/03/23 07:50
Sodium 136 mmol/L (135-145) 12/03/23 07:50
Potassium 4.2 mmol/L (3.5-5.1) 12/03/23 07:50
BUN 12 mg/dl (9-20) 12/03/23 07:50
Glucose 94 mg/dl (70-99) 12/03/23 07:50
Calcium 9.1 mg/dl (8.4-10.2) 12/03/23 07:50
Patient Allergies
clarithromycin [From Biaxin] Allergy (Verified 10/16/23 14:57)
Tachycardia
clindamycin Allergy (Verified 10/16/23 14:57)
Restlessness, Heart bounding
Penicillins Allergy (Verified 10/16/23 14:57)
Unknown
Physical Exam
-
General: Well Developed, Well Nourished and No Apparent Distress
Eyes: Able to visualize OU, Unremarkable, Round OU and No Ptosis
HEENT: Normocephalic, Atraumatic and Anicteric
Neck: Full Range of Motion
Respiratory: Clear to Auscultation
Cardiac: Regular Rhythm and No Murmur
GI: Normal Bowel Sounds and Soft
Skin: Unremarkable
Extremities: No Clubbing, No Cyanosis and No Edema
Psych: Anxious
Extended Neurological Exam
Mood & Affect: Mood Unremarkable, Affect Unremarkable and Anxious
Attention Span & Concentration: Awake, Alert, Interactive and No Difficulty with 2 Step Request
Memory: Unremarkable, Able to Recall, Recalls Objects and Recalls Short Term
Tremor: Hand Tremor Absent and Head Tremor Absent
Involuntary Movement: None
Speech: Quality Unremarkable, Quantity Unremarkable and Rate of Production Unremarkable
Cranial Nerve II: Left Eye: Pupillary Reactivity Unremarkable, Pupillary Size Unremarkable and Visual Romero Grossly Intact
Cranial Nerve II: Right Eye: Pupillary Reactivity Unremarkable, Pupillary Size Unremarkable and Visual Romero Grossly Intact
Cranial Nerves III, IV, : Extraocular Movement: Extraocular Movement Left, Extraocular Movement Right and Extraocular Movement Full in all Directions
Cranial Nerve V: Facial Sensation: Facial Sensation Unremarkable to Cold
Cranial Nerve VII: Facial Symmetry: Normal Facial Symmetry
Cranial Nerve VIII: Hearing: Unremarkable Hearing to Normal Conversational Volume
Cranial Nerves IX, X: Palate Movement: Palate Elevation Symmetric
Cranial Nerve XI: Shoulder Shrug: Unremarkable
Cranial Nerve XII: Tongue Protusion: Midline
Muscle Strength, Overall: Reduced Throughout
Muscle Bulk & Tone: Bulk Unremarkable and Tone Unremarkable
Pronator Drift: No Drift in Upper Extremities and No Drift in Lower Extremities
Deep Tendon Reflexes: Trace Throughout
Cold Sensation: Unremarkable
Vibration Sensation: Unremarkable
Touch Sensation: Unremarkable
Coordination: Omcdwy-[id number]-bmxdhp Testing Unremarkable and Reaches for Objects without Difficulty
Babinski Sign: Absent Bilaterally
Gait & Station: Up from Lying with Difficulty, Romberg Test Positive and Wide Based
--- NOTE | 2023-12-06 16:11 | CM ---
PT OT indicated [facility] at dc.
Spoke with Sena at [facility] She review chart. PM&R requested and MD ordered.
Awaiting PM&R eval.
LP done with IR
Continues with IVIg infusions / today.
Has Alonzo.
Reviewed dc plan with pt in room today.
Has Medicare.
PLAN Acute rehab VS SNF
[2023-12-06 16:12] LABS: CSF Clarity Clear; CSF Color Colorless; CSF Tube # 4; Red Cell Count/CSF 10 mm^3; White Cell Count/CSF 1 mm^3 (0-5)
--- NOTE | 2023-12-06 17:30 | PTCARENOTE ---
Patient s/p lumbar puncture. Bandaid CDI on middle lower back, CDI. Patient completed bedrest restriction and assisted OOB-chair. No complaints at present time.
[2023-12-06 17:36] LABS: Spinal Fluid Glucose 57 mg/dl (40-70); Spinal Fluid Protein 133 mg/dl (12-60)
--- NOTE | 2023-12-06 18:22 | W.PN.HOSP.TC ---
Today's Communication/Plan
-
continue IVIG
Assessment / Plan
Assessment / Plan
Last hospitalist admission
Date of Admission: 11/05/23- Date of Discharge: 11/23/23 from CTS service
1. Robotic assisted thoracic surgery [RATS] left lower lobectomy and Lymph node resection
Pt states he is due for a CXR 12/05: Stable mild volume loss in the left hemithorax compatible with recent left lower lobectomy.
No pneumothorax.
Possible tiny left pleural effusion.
Primary Diagnosis:
1. Left lower lobe adenocarcinoma
Secondary Diagnoses:
1. Lung cancer
2. Abdominal aortic aneurysm status post EVAR
3. Hypertension
4. Depression/anxiety
5. Hypothyroidism
6. BPH
7. History of bronchitis
8. History of tobacco abuse, quit in 2020
9. Asbestos exposure
ASSESSMENT & PLAN
Acute Urinary retention
concern for possible Guillain [place]
LP just completed with noted elevated protein
Straight cath output 1.5L
Placed indwelling F cath
HX BPH
- NEG UA
- c/w SPENT GRAIN [employer]YER Flomax
Pt goes to Dr. Chung
Severely deconditioning s/p prolonged hospitalization
Gradual weakness associated with acute ambulatory dysfunction
concern regarding leg weakness, could weakness and urinary retention be related in pt with recent hospitalization 11/04-11/23/23 for adenocarcinoma of lung
appreciate neuro evaluation, discussed with Dr. Latham, concern for Guillain [place]
- Empiric IVF
- PT/OT
- CRM consult for DC planning
to consider Acute Rehab, call placed to Dr. Rice, and extensively reviewed
?EMG
Report black tarry stool
Stable Hgb
Stable VSS
- stool for HoB
Benign HTN:
- Hold HCTZ, Cozaar currently 25 mg daily, pt states home dose in 50 mg daily, will continue current dose as BP is well controlled
BP in 128-141/79-94 range
Conditions present prior to admission:
Anxiety.
Depression.
Hypothyroid.
Vitamin D deficiency.
BPH.
Lung cancer.
Chronic bronchitis.
Pt states he was on ASA/Plavix, currently on hold pending LP, will resume when cleared by Neuro. Was taking for hx of AAA repair
DVT Px: SCD
Code: Full
IP MS
Anticipated Discharge: > 48 hours
Subjective/Interval History
-
Date of Service: December 06, 2023
pt believes leg strength has improved
Objective Data
-
Vital Signs:
Vital Signs
Temp Pulse Resp BP Pulse Ox
98.8 F 81 18 141/83 96
12/06/23 17:31 12/06/23 17:31 12/06/23 17:31 12/06/23 17:31 12/06/23 17:31
I&O
12/05/23 12/06/23 12/07/23
06:59 06:59 06:59
Intake Total 1440 / 1440 1440 / 1440 1440 / 1440
Output Total 3500 / 3500 3300 / 3300 1450 / 1450
Balance -2059 / -2059 -1859 / -1859 -
Review of Systems
-
History Source: Patient, Physician and Coordinated Provider
Constitutional: Denies Fever
EENT: Reports No Symptoms Reported
Respiratory: Reports No Symptoms
Cardiac: Reports No Symptoms
Abdomen/GI: Denies Abdominal Pain, Nausea or Vomiting
Genitourinary: Reports Difficulty Voiding
Musculoskeletal: Reports Muscle Weakness (of bilateral LE, showing improvement)
Neuro: Reports Weakness; Denies Dizzy or Headache
Physical Exam
-
General: Well Developed, Well Nourished and No Apparent Distress
HEENT: Normocephalic, Atraumatic and Moist Mucous Membranes
Respiratory: Clear to Auscultation; Negative Wheezes, Rales or Rhonchi
Cardiac: Regular Rhythm and S1/S2
GI: Soft, Nontender and Nondistended
Genito-urinary: Alonzo
Musculoskeletal: No Clubbing, No Cyanosis and No Edema
Skin: Warm and Dry
Neuro: Awake, Alert and Oriented
[2023-12-06] MEDS: FLOMAX 0.4 MG PO (20:40)
[2023-12-06] MEDS: SENOKOT-S 1 TABLET PO (20:47)
[2023-12-06] MEDS: TYLENOL 650 MG PO (20:47)
[2023-12-06] MEDS: GAMMAGARD 300 IV (22:19)
[2023-12-07] VITALS (11 sets, daily range): BP systolic 125–158; BP diastolic 80–90; PULSE 79–84; O2SAT 98; BMI 22.7
[2023-12-07] MEDS: TYLENOL 650 MG PO ×2 (08:37→20:23)
[2023-12-07] MEDS: XANAX 0.5 MG PO ×2 (08:38→20:23)
[2023-12-07] MEDS: NORVASC 2.5 MG PO (08:38)
[2023-12-07] MEDS: SENOKOT-S 1 TABLET PO (08:38)
[2023-12-07] MEDS: COZAAR 25 MG PO (08:38)
[2023-12-07] MEDS: FLUSH (NSS) 1 FLUSH IV (08:39)
[2023-12-07] MEDS: ProAIR HFA INHALER 2 PUFF INH (08:46)
--- NOTE | 2023-12-07 09:40 | CM ---
Addendum entered by Joanie Juan RN 12/07/23 15:10:
Dr Benton agrees he is appropriate for acute rehab.Spoke with Sena Nicole rep.There is a bed at [facility] :[address] , [place] [address] Report [phone] fax [phone]. MD indicated pt ready for dc tomorrow. Pt to speak with
his about [facility].
Original Note:
PT OT indicated [facility] at [facility].
Spoke with Sena at [facility]. PM&R ordered.
Awaiting PM&R eval.
LP done with IR yesterday
Continues with IVIg infusions 06/23 today.
Has Alonzo.
Has Medicare.
PLAN Acute rehab if accepted
--- NOTE | 2023-12-07 11:43 | CON.MD ---
Addendum entered and electronically signed by James Rice MD 12/07/23 20:47:
Spoke with Dr. Pena regarding patient's indications for aspirin and Plavix. It seems that aspirin and Plavix was from his prior abdominal aortic aneurysm repair. Dr. Pena spoke with Dr. Farmer from vascular and he does not need to be on both.
Patient should be on chemoprophylaxis with lower extremity weakness and cancer history to prevent DVT. Had an LP yesterday. Contacted IR who states that there is no reason that the patient can be back on his anticoagulation. Spoke with Dr. Pena
and patient started on heparin 3 times a day. Discussed Guillain-Juarez�, therapies, reason for IVIG, recovery potential, need for acute inpatient rehabilitation. Answered many questions to his satisfaction.
A total of 80 minutes were spent with the patient preparing for the evaluation, obtaining history, performing examination and evaluation, counseling, data review, case management, care coordination, order dispatcher chief, and EMR documentation.
Original Note:
Consultation - Medical
-
Referring Provider:�Dr. Mukul Pena
Chief Complaint:�Guillain-Juarez� syndrome
�
History of Present Illness:�68-year-old male with PMH (as below) presented to [facility] on 12/02/2023 with weakness and gait dysfunction. He had a recent robot-assisted thoracic surgery with left lower lobectomy and lymph node resection
for left lower lobe adenocarcinoma. He was discharged on 11/23/2023. Did note some black tarry stool and gradual onset of weakness over 5 days associated with the acute amatory dysfunction. Had difficulty voiding requiring Alonzo catheter
placement. Neurology consulted for concern for possible Guillain-Juarez� syndrome. Seen by neurology with differential including paraneoplastic Lambert-Eaton syndrome versus paraneoplastic neuropathy versus critical care neuropathy versus cervical
myelopathy. Started on IVIG. Lumbar puncture noting elevated protein.
�
Past Medical History:�Left lower lobe adenocarcinoma, HTN, hypothyroidism, anxiety/depression, vitamin D deficiency, abdominal aortic aneurysm, BPH, bronchitis, expressed this exposure, skin cancer, cellulitis, Asperger syndrome
Procedure History:�Robotic assisted thoracic surgery left lower lobectomy and lymph node resection, endovascular aortic repair TAVR procedure
Family History:�None pertinent
�
Social History:�
Functional Level Premorbidly:�Independent with all activities�
Functional Level Currently:�Mod assist transfers, ambulating 10 feet x 1 mod assist with second person. Max assist toileting.
�
Tobacco:�Former 36-[id number] history, quit 2020
Alcohol:�Denies�
Drug use:�Denies�
�
Lives with:�Significant other and mother
24-hour assistance available:�Yes
Number of floors:�2
# steps to enter:�3
# steps to second floor: Full flight
Potential First floor set up:�Possibly
Driving:�Yes
Occupation:�Semiretired, not working recently
�
�
Allergies:�
Allergy/AdvReac Type Severity Reaction Status Date / Time
clarithromycin [From Biaxin] Allergy Tachycardia Verified 10/16/23 14:57
clindamycin Allergy Restlessness, Verified 10/16/23 14:57
Heart
bounding
Penicillins Allergy Unknown Verified 10/16/23 14:57
�
Review of Systems:�
Constitutional: (x) abNormal _fatigue
Eye: (x) Normal _
Ear/Nose/Throat: (x) Normal _
Respiratory: (x) Normal _
Cardiovascular: (x) Normal _
Gastrointestinal: (x) Normal _
Genitourinary: (x) abNormal _unable to urinate, has Alonzo catheter
Musculoskeletal: (x) Normal _
Integumentary: (x) Normal _
Neurologic: (x) abNormal _weakness in both legs, decreased sensation in hands and feet
Psychiatric: (x) Normal _
Endocrine: (x) Normal _
Hematologic/Lymphatic: (x) Normal _
Allergic/Immunologic: (x) Normal _
�
Medications:�
Active Current Visit Medication List
Category Date Time Status
Acetaminophen [Tylenol] Med 12/03/23 08:51 Active
650 mg PO Q4HPRN PRN
Alprazolam [Xanax] Med 12/06/23 09:30 Active
0.5 mg PO Q6HPRN PRN
Amiodarone [Pacerone] Med 12/03/23 08:00 Active
200 mg PO DAILY
Amlodipine [Norvasc] Med 12/03/23 08:00 Active
2.5 mg PO DAILY
Bisacodyl [Dulcolax] Med 12/02/23 15:04 Active
10 mg RECTAL [id number] PRN
Docusate W/Senna [Senokot-S] Med 12/02/23 15:04 Active
1 tablet PO BIDPRN PRN
Flush (0.9% Sodium Chloride) [Flush (Nss)] Med 12/03/23 09:00 Active
See Dose Instructions IV PER PROTOCOL
Immune Globulin 30 Grams/300Ml [Gammagard] Med 12/03/23 20:00 Active
30 grams in 300 ml IV Q24H
Losartan [Cozaar] Med 12/03/23 08:00 Active
25 mg PO DAILY
Metoprolol Xl [Toprol Xl] Med 12/03/23 08:00 Active
25 mg PO DAILY
Polyethylene Glycol Powder [Miralax] Med 12/02/23 15:04 Active
17 grams PO DAILYPRN PRN
Tamsulosin [Flomax] Med 12/02/23 22:00 Active
0.4 mg PO HS
�
Vitals:�
Temp Pulse Resp BP Pulse Ox
98.5 F 87 18 125/85 97
12/07/23 07:00 12/07/23 07:00 12/07/23 07:00 12/07/23 07:00 12/07/23 08:59
Height 5 ft 10 in
Actual Weight 71.668 kg
Body Mass Index (BMI) 22.7
�
Physical Exam:�
General Appearance/Observation: Well-developed, well-nourished male in no apparent distress.�
Pain/Comfort Assessment: Denies�
Mood/Affect: Appropriate�
�
Integumentary/Operative Site:�
�� Pressure Ulcer Evaluation: absent over heels.�
�
Eyes: Conjunctiva/Lids: normal���� Pupils: pupils equal round and reactive to light and Accommodation�
Ears/Nose/Throat: oral mucosa moist,� throat clear.������������ Lips/Teeth/Gums: normal�
Cardiovascular: Heart: regular, no murmur�
Pulses: dorsalis pedis 2+ bilaterally�
Respiratory: Respiratory Effort/Chest Expansion: normal������� Auscultation: Clear to auscultation bilaterally�
Gastrointestinal: abdomen not tender, no distension, normal abdominal bowel sounds
Genitourinary: Alonzo�with yellow urine
Rectal Exam: Deferred�
Extremities:�Edema: None�Cyanosis: None�Trophic�changes: None
�
Neurology Exam:
Orientation: Alert, Oriented to self, Time, Place�
Memory: Intact for recent medical concerns
Comprehension: Intact
Two step command: Intact
Cranial Nerves:
�� CNII:�Pupillary light reflex: Intact����
�� CN III, IV, : Extraocular muscles: Intact�
�� CN V:�Facial Sensation�at�Forehead: Intact,�Maxilla: Intact,�Mandible: Intact
�� CN VII:�Facial movement: Symmetric
�� CN VIII:�Hearing: Normal
�� CN IX/X:�Speech & swallow: Normal,�Position of Uvula: Midline
�� CN XI:�Shoulder shrug: Symmetric
�� CN XII:�Tongue protrusion: Midline
Sensory:
�� Light touch: Intact in bilateral upper and lower extremities
�� Proprioception: Decreased both dose
�� Temperature:�Intact in all extremities
�
Reflexes:
�� Biceps: 0 bilaterally
�� Brachioradialis: 0 bilaterally
�� Triceps: 0 bilaterally
�� Patellar: 0 bilaterally
�� Achilles: 0 bilaterally
�� Babinski: Down going bilaterally
�� Clonus: None
�� Jason: Negative bilaterally�
Cerebellar: Dysmetria/Ataxia: Bilaterally
Musculoskeletal: Motor: (Manual muscle scale 0-5)�
Muscle SA EF WE EE FF FA HF KE DF EHL PF
Right� 5 5 5 5 5 4 2+ 4 4 4 4
Left 5 5 5 5 5 4 2+ 4 4 4 4
�
Tone: Normal in all extremities�
Range of Motion: Passively within normal limits in all extremities�
�
Lab Results
Laboratory Data
12/03/23 07:50
12/03/23 07:50
Total Bilirubin 0.5 mg/dl (0.2-1.3) 12/02/23 00:49
AST 34 U/L (17-59) 12/02/23 00:49
ALT 30 U/L (0-50) 12/02/23 00:49
Alkaline Phosphatase 66 U/L (38-126) 12/02/23 00:49
Total Protein 6.6 g/dl (6.3-8.2) 12/02/23 00:49
Albumin 4.2 g/dl (3.5-5.0) 12/02/23 00:49
�
Diagnostic Results:�as per HPI�
�
Assessment
68-year-old R handed M PMH (Left lower lobe adenocarcinoma, HTN, hypothyroidism, anxiety/depression, vitamin D deficiency, abdominal aortic aneurysm, BPH, bronchitis, expressed this exposure, skin cancer, cellulitis, Asperger syndrome) with
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
Plan�
PM&R�PT/OT to increase independence with ADLs, improve balance, coordination, endurance, strength, mobility, community reintegration, decreased burden of care on others and family education.�
�
Guillain-Juarez� syndrome: To complete 5/5 IVIG treatments today. Neurologic function continues to improve. Has loss of proprioception, decreased sensation, and weakness make him at increased risk for falls.
�
HTN: Amlodipine 2.5 mg, losartan 25 mg, monitor
Hypothyroidism: Not on replacement�
Normocytic anemia: Likely multifactorial.� Consider checking B12, folate, iron studies. Can get worse after IVIG with some generalized pancytopenia as a possibility. Continue to monitor.�
�
Psych: Psychology consult.� Monitor mood, adjust as needed.�
Skin: monitor for pressure sores/rashes/lesions.�
Pain: acetaminophen as needed.�
Bowel: Colace and Senna, PRN bisacodyl.�
Bladder: Has Alonzo catheter, on Flomax 0.4 mg. Once in rehab suggest time void, PVRs, PRN straight cath.�
DVT Prophylaxis: Mechanical, suggest chemoprophylaxis with weakness and decreased mobility as well as cancer history.
Pulmonary: Incentive spirometry�
Safety: Continue to reinforce assistance with all transfers.�
Code Status:� Full code
Dispo�(date/plan/equipment needs): Home with family care.� Social history reviewed.�
Functional and Medical Goals:�Modified Independent with ADL�s, ambulation, transfers�
Discharge Destination:�Acute inpatient rehabilitation�
Summary of recommendations:
-�Discharge Destination:�Acute inpatient rehabilitation
Guillain-Juarez� syndrome: To complete 5/5 IVIG treatments today. Neurologic function continues to improve. Has loss of proprioception, decreased sensation, and weakness make him at increased risk for falls.
�HTN: Amlodipine 2.5 mg, losartan 25 mg, monitor
Hypothyroidism: Not on replacement�
Normocytic anemia: Likely multifactorial.� Consider checking B12, folate, iron studies. Can get worse after IVIG with some generalized pancytopenia as a possibility. Continue to monitor.�
Bowel: Colace and Senna, PRN bisacodyl.�
Bladder: Has Alonzo catheter, on Flomax 0.4 mg. Once in rehab suggest time void, PVRs, PRN straight cath.�
DVT Prophylaxis: Mechanical, suggest chemoprophylaxis with weakness and decreased mobility as well as cancer history.
Thank you for allowing me to care for your patient. Please contact me with any questions or concerns. The
--- NOTE | 2023-12-07 14:23 | W.PN.HOSP.TC ---
Addendum entered and electronically signed by Mukul Pena MD 12/07/23 16:06:
call placed to Dr. Farmer regarding DAPT, states that 3 yrs post AAA repair it would be okay to stop 1 of the two agents, will stop the Plavix
Original Note:
Today's Communication/Plan
-
voiding trial
Assessment / Plan
Assessment / Plan
Last hospitalist admission
Date of Admission: 11/05/23- Date of Discharge: 11/23/23 from CTS service
1. Robotic assisted thoracic surgery [RATS] left lower lobectomy and Lymph node resection
Pt states he is due for a CXR 12/05: Stable mild volume loss in the left hemithorax compatible with recent left lower lobectomy.
No pneumothorax.
Possible tiny left pleural effusion.
Primary Diagnosis:
1. Left lower lobe adenocarcinoma
Secondary Diagnoses:
1. Lung cancer
2. Abdominal aortic aneurysm status post EVAR
3. Hypertension
4. Depression/anxiety
5. Hypothyroidism
6. BPH
7. History of bronchitis
8. History of tobacco abuse, quit in 2020
9. Asbestos exposure
ASSESSMENT & PLAN
Acute Urinary retention
concern for possible Guillain [place]
LP completed with noted elevated protein
Straight cath output 1.5L
Placed indwelling F cath. Discussed with SERGIO Titus. Will remove ugarte and do voiding trial
HX BPH
- NEG UA
- c/w SHOPFITTER Flomax
Pt goes to Dr. Chung
discussed with cirilo Ayala to resume ASA/Plavix as of 12/07 morning
Discussed with KAL Crowell the Amiodarone/Toprol aspect. Pt did not have a problem with a.fib post operatively, but instead this was to be used for a short time post operatively to avoid developing a problem by protocol. Pt refused to take
medication and she was made aware.
Severely deconditioning s/p prolonged hospitalization
Gradual weakness associated with acute ambulatory dysfunction
appreciate neuro evaluation, discussed with Dr. Latham, concern for Guillain [place]
- PT/OT
- CRM consult for DC planning
to consider Acute Rehab, discussed with Dr. Rice, and extensively reviewed
?EMG
Report black tarry stool
Stable Hgb
Stable VSS
- stool for HoB
Benign HTN:
- Hold HCTZ, Cozaar currently 25 mg daily, pt states home dose in 50 mg daily, will continue current dose as BP is well controlled
BP in 128-141/79-94 range
Conditions present prior to admission:
Anxiety.
Depression.
Hypothyroid.
Vitamin D deficiency.
BPH.
Lung cancer.
Chronic bronchitis.
DVT Px: SCD
Code: Full
IP MS
Anticipated Discharge: 24 - 48 hours
Subjective/Interval History
-
Date of Service: December 07, 2023
Believes his legs have gotten stronger
Objective Data
-
Vital Signs:
Vital Signs
Temp Pulse Resp BP Pulse Ox
98.5 F 87 18 125/85 97
12/07/23 07:00 12/07/23 07:00 12/07/23 07:00 12/07/23 07:00 12/07/23 08:59
I&O
12/06/23 12/07/23 12/08/23
06:59 06:59 06:59
Intake Total 1440 / 1440 1440 / 1440
Output Total 3300 / 3300 3950 / 3950
Balance -1860 / -1860 -2510 / -2510
Review of Systems
-
History Source: Patient, Physician and Coordinated Provider
Constitutional: Denies Fever
EENT: Reports No Symptoms Reported
Respiratory: Reports No Symptoms
Cardiac: Reports No Symptoms
Abdomen/GI: Denies Abdominal Pain, Nausea or Vomiting
Genitourinary: Reports Difficulty Voiding
Musculoskeletal: Reports Muscle Weakness (of bilateral LE, showing improvement)
Neuro: Reports Weakness; Denies Dizzy or Headache
Physical Exam
-
General: Well Developed, Well Nourished and No Apparent Distress
HEENT: Normocephalic, Atraumatic and Moist Mucous Membranes
Respiratory: Clear to Auscultation; Negative Wheezes, Rales or Rhonchi
Cardiac: Regular Rhythm and S1/S2
GI: Soft, Nontender and Nondistended
Genito-urinary: Ugarte
Musculoskeletal: No Clubbing, No Cyanosis and No Edema
Skin: Warm and Dry
Neuro: Awake, Alert and Oriented; Negative No Motor Deficits (lower extremity weakness has improved, remains weak, but able to raise legs )
[2023-12-07] MEDS: FLOMAX 0.4 MG PO (20:23)
[2023-12-07] MEDS: HEPARIN SC (20:23)
[2023-12-07] MEDS: GAMMAGARD 300 IV (22:28)
[2023-12-08] VITALS (8 sets, daily range): BP systolic 129–166; BP diastolic 52–90; PULSE 87; O2SAT 98; BMI 22.3
[2023-12-08] MEDS: TYLENOL 650 MG PO ×2 (05:59→18:35)
[2023-12-08 06:27] LABS: Hematocrit 30.6 % (39.0-52.0); Hemoglobin 11.1 g/dL (13.0-18.0); Mean Corp Hgb Conc. 36.3 g/dL (33.0-37.0); Mean Corpuscular Hgb 33.1 pg (27.0-31.0); Mean Corpuscular Volume 91.3 fL (80.0-94.0); Mean Platelet Volume 9.4 fL (7.4-10.4); Platelet Count 250 10^3/uL (130-400); Red Blood Cell Count 3.35 10^6/uL (4.70-6.10); Red Cell Dist. Width 14.7 % (11.5-14.5)
[2023-12-08 06:45] LABS: Blood Urea Nitrogen 13 mg/dl (9-20); Calcium 8.9 mg/dl (8.4-10.2); Carbon Dioxide 25 mmol/L (22-30); Chloride 103 mmol/L (98-107); Estimated Creatinine Clearance 79 ml/min; Glucose 88 mg/dl (70-99); Potassium 4.2 mmol/L (3.5-5.1); Sodium 136 mmol/L (135-145); eGFR > 60.00
[2023-12-08 07:54] LABS: Absolute Neutrophils -Man Diff 1.6 10^3/uL (1.4-6.5); Band Neutrophils 1 % (0-3); Eosinophils 21 % (0-6); Lymphocytes 24 % (20-51); Monocytes 15 % (2-9); Platelets Checked Yes; Segmented Neutrophils 39 % (42-75)
[2023-12-08 07:55] LABS: Normal RBC Morphology Yes; Total Cells Counted 100
[2023-12-08] MEDS: HEPARIN 5000 UNITS SC ×2 (09:28→20:26)
[2023-12-08] MEDS: SENOKOT-S 1 TABLET PO (09:29)
[2023-12-08] MEDS: COZAAR 25 MG PO (09:29)
[2023-12-08] MEDS: XANAX 0.5 MG PO ×2 (09:29→18:35)
[2023-12-08] MEDS: NORVASC 2.5 MG PO (09:29)
[2023-12-08] MEDS: ASPIR LOW (ENTERIC COATED) 81 MG PO (09:30)
[2023-12-08] MEDS: FLUSH (NSS) 1 FLUSH IV (09:36)
--- NOTE | 2023-12-08 11:12 | W.PN.HOSP.TC ---
Today's Communication/Plan
-
dc once arrangements completed for acute rehab
ugarte removed and is voiding
completed course of IVIG
Heparin added
Assessment / Plan
Assessment / Plan
Last hospitalist admission
Date of Admission: 11/05/23- Date of Discharge: 11/23/23 from CTS service
1. Robotic assisted thoracic surgery [RATS] left lower lobectomy and Lymph node resection
Pt states he is due for and was done CXR 12/05: Stable mild volume loss in the left hemithorax compatible with recent left lower lobectomy.
No pneumothorax.
Possible tiny left pleural effusion.
Primary Diagnosis:
1. Left lower lobe adenocarcinoma resected 11/04
Secondary Diagnoses:
1. Lung cancer
2. Abdominal aortic aneurysm status post EVAR
3. Hypertension
4. Depression/anxiety
5. Hypothyroidism
6. BPH
7. History of bronchitis
8. History of tobacco abuse, quit in 2020
9. Asbestos exposure
ASSESSMENT & PLAN
Acute Urinary retention
concern for possible Guillain [place]
LP completed with noted elevated protein, consistent with GBS
Straight cath output 1.5L
Placed indwelling F cath. Removed 12/07 and is voiding
HX BPH
- NEG UA
- c/w DRAWING CHECKER Flomax
Pt goes to Dr. Chung
discussed with Dr. Farmer, DAPT started [address] Rice recommends Heparin to reduce the risk of DVT/PE while nonambulatory and concern was raised for use of [address] Farmer is okay with stopping Plavix while on Heparin and thus
was stopped
Discussed with KAL Crowell the Amiodarone/Toprol aspect. Pt did not have a problem with a.fib post operatively, but instead this was to be used for a short time post operatively to avoid developing a problem by protocol. Pt refused to take
medication and she was made aware.
Severely deconditioning s/p prolonged hospitalization
Gradual weakness associated with acute ambulatory dysfunction
appreciate neuro evaluation, discussed with Dr. Latham, concern for Guillain [place]
- PT/OT
- CRM consult for DC planning
to consider Acute Rehab, discussed with Dr. Rice, and extensively reviewed
?EMG
Reported black tarry stool on admission, none since
Stable Hgb
Stable VSS
- stool for HoB
Benign HTN:
- Hold HCTZ, Cozaar currently 25 mg daily, pt states home dose in 50 mg daily, will continue current dose as BP is well controlled
BP in 128-141/79-94 range
Conditions present prior to admission:
Anxiety.
Depression.
Hypothyroid.
Vitamin D deficiency.
BPH.
Lung cancer.
Chronic bronchitis.
DVT Px: SCD/SQ Heparin started 12/06, post LP
Code: Full
IP MS
Anticipated Discharge: 24 - 48 hours
Subjective/Interval History
-
Date of Service: December 08, 2023
Does not want to go to the [facility] in [place], very clear that he wants the facility at
Objective Data
-
Labs:
Laboratory Results
12/08/23
05:19
WBC 4.0 L
Hgb 11.1 L
Hct 30.6 L
Plt Count 250 D
Sodium 136
Potassium 4.2
Chloride 103
Carbon Dioxide 25
BUN 13
Creatinine 0.9
Glucose 88
Calcium 8.9
Vital Signs:
Vital Signs
Temp Pulse Resp BP Pulse Ox
98.3 F 87 18 151/90 98
12/08/23 08:12 12/08/23 08:12 12/08/23 08:12 12/08/23 08:12 12/08/23 08:12
I&O
12/07/23 12/08/23 12/09/23
06:59 06:59 06:59
Intake Total 1440 / 1440 1860 / 1860
Output Total 3950 / 3950 2650 / 2650 450 / 450
Balance -2510 / -2510 -790 / -790 -450 / -450
Review of Systems
-
History Source: Patient, Physician and Coordinated Provider
Constitutional: Denies Fever
EENT: Reports No Symptoms Reported
Respiratory: Reports No Symptoms
Cardiac: Reports No Symptoms
Abdomen/GI: Denies Abdominal Pain, Nausea or Vomiting
Genitourinary: Reports Difficulty Voiding (much improved, ugarte catheter removed this morning and is voiding)
Musculoskeletal: Reports Muscle Weakness (of bilateral LE, showing improvement)
Neuro: Reports Weakness; Denies Dizzy or Headache
Physical Exam
-
General: Well Developed, Well Nourished and No Apparent Distress
HEENT: Normocephalic, Atraumatic and Moist Mucous Membranes
Respiratory: Clear to Auscultation; Negative Wheezes, Rales or Rhonchi
Cardiac: Regular Rhythm and S1/S2
GI: Soft, Nontender and Nondistended
Genito-urinary: Ugarte
Musculoskeletal: No Clubbing, No Cyanosis and No Edema
Skin: Warm and Dry
Neuro: Awake, Alert and Oriented; Negative No Motor Deficits (lower extremity weakness has improved, remains weak, but able to raise legs )
--- NOTE | 2023-12-08 12:27 | CM ---
Hakeem is ready for discharge to acute rehab and bed is available at [facility]. Hakeem is adamant that he will not transfer there and wants to wait for a bed to be available at [facility]. VM left for Sena Rudolph to determine if/when
a bed will become available at [facility].
Case discussed with Dr. Pena who would like to wait until Sunday when Dr. Rice will be available to discuss further.
CM will continue to follow for transfer to [facility]; pt will not agree to going to [facility] at any location other than .
[2023-12-08] MEDS: PEPCID 20 MG PO (13:54)
--- NOTE | 2023-12-08 19:21 | W.PN.NEURO.1 ---
Today's Communication / Plan
-
PT/OT
Inpatient Rehab
Neuro Assessment/Plan
Assessment
68 yr. old male with h/o lung cancer s/p lobectomy with complicated postop course who was admitted with progressive weakness difficulty standing and walking. 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
Plan
IVIg 5/5 completed
PT/OT
Inpatient Rehab
Subjective/Objective
Subjective Data
Date of Service: December 08, 2023
Pat continue to do well able to stand with support and walk. Regained bladder function
Objective Data
Vital Signs
Temp Pulse Resp BP Pulse Ox
37.0 C 89 18 147/90 99
12/08/23 15:59 12/08/23 15:59 12/08/23 15:59 12/08/23 15:59 12/08/23 15:59
Lab Results
12/08/23 05:19
12/08/23 05:19
Sodium 136 mmol/L (135-145) 12/08/23 05:19
Potassium 4.2 mmol/L (3.5-5.1) 12/08/23 05:19
BUN 13 mg/dl (9-20) 12/08/23 05:19
Glucose 88 mg/dl (70-99) 12/08/23 05:19
Calcium 8.9 mg/dl (8.4-10.2) 12/08/23 05:19
Patient Allergies
clarithromycin [From Biaxin] Allergy (Verified 10/16/23 14:57)
Tachycardia
clindamycin Allergy (Verified 10/16/23 14:57)
Restlessness, Heart bounding
Penicillins Allergy (Verified 12/07/23 17:44)
As a child
Physical Exam
-
General: Well Developed, Well Nourished, No Apparent Distress and Comfortable
Eyes: Able to visualize OU, Unremarkable, Round OU and Maiden Conjunctivae
HEENT: Normocephalic, Atraumatic and Anicteric
Neck: No Bruits Bilaterally and Full Range of Motion
Respiratory: Clear to Auscultation
Cardiac: Regular Rhythm, No Murmur and S1/S2
GI: Normal Bowel Sounds
Extremities: No Clubbing, No Cyanosis and No Edema
Psych: Unremarkable
Extended Neurological Exam
Mood & Affect: Mood Unremarkable and Affect Unremarkable
Attention Span & Concentration: Awake, Alert, Interactive and No Difficulty with 2 Step Request
Memory: Unremarkable, Able to Recall and Recalls Objects
Tremor: Hand Tremor Absent and Head Tremor Absent
Involuntary Movement: None
Speech: Quality Unremarkable, Quantity Unremarkable and Rate of Production Unremarkable
Cranial Nerve II: Left Eye: Pupillary Reactivity Unremarkable, Pupillary Size Unremarkable and Visual Romero Grossly Intact
Cranial Nerve II: Right Eye: Pupillary Reactivity Unremarkable, Pupillary Size Unremarkable and Visual Romero Grossly Intact
Cranial Nerves III, IV, : Extraocular Movement: Extraocular Movement Full in all Directions, No Ptosis and Grossly Intact
Cranial Nerve V: Facial Sensation: Facial Sensation Unremarkable to Cold and Intact to Light Touch
Cranial Nerve VII: Facial Symmetry: Normal Facial Symmetry
Cranial Nerve VIII: Hearing: Unremarkable Hearing to Normal Conversational Volume
Cranial Nerves IX, X: Palate Movement: Palate Elevation Symmetric
Cranial Nerve XI: Shoulder Shrug: Unremarkable
Cranial Nerve XII: Tongue Protusion: Midline
Muscle Strength, Overall: Reduced Throughout (Improving when compared to day 1 of admission)
Muscle Bulk & Tone: Bulk Unremarkable and Tone Unremarkable
Pronator Drift: No Drift in Upper Extremities and No Drift in Lower Extremities
Deep Tendon Reflexes: Trace Throughout (UE reflexes +. LE reflexes absent)
Cold Sensation: Reduced
Vibration Sensation: Reduced
Touch Sensation: Double Simultaneous Stimulation Absent and Pin Prick Reduced
Coordination: Reaches for Objects without Difficulty
Babinski Sign: Absent Bilaterally
Gait & Station: Up from Lying with Difficulty
[2023-12-08] MEDS: FLOMAX 0.4 MG PO (20:26)
[2023-12-09 04:22] VITALS: BMI 22.3
[2023-12-09 07:00] VITALS: BP 128/89
[2023-12-09] MEDS: PEPCID 20 MG PO (09:15)
[2023-12-09] MEDS: NORVASC 2.5 MG PO (09:15)
[2023-12-09] MEDS: ASPIR LOW (ENTERIC COATED) 81 MG PO (09:15)
[2023-12-09] MEDS: COZAAR 25 MG PO (09:15)
[2023-12-09] MEDS: HEPARIN 5000 UNITS SC (09:16)
[2023-12-09] MEDS: XANAX 0.5 MG PO ×2 (09:21→18:55)
[2023-12-09 11:00] VITALS: BP 134/76
--- NOTE | 2023-12-09 11:28 | W.PN.HOSP.TC ---
Today's Communication/Plan
-
Await [facility]. Bed was available in [place], pt declined admit there, stated he will wait for a bed at [facility], I was unable to convince otherwise
Assessment / Plan
Assessment / Plan
Last hospitalist admission
Date of Admission: 11/05/23- Date of Discharge: 11/23/23 from CTS service
1. Robotic assisted thoracic surgery [RATS] left lower lobectomy and Lymph node resection
Pt states he is due for and was due for a CXR on 12/05: Stable mild volume loss in the left hemithorax compatible with recent left lower lobectomy.
No pneumothorax.
Possible tiny left pleural effusion.
Primary Diagnosis:
1. Left lower lobe adenocarcinoma resected 11/04
Secondary Diagnoses:
1. Lung cancer
2. Abdominal aortic aneurysm status post EVAR
3. Hypertension
4. Depression/anxiety
5. Hypothyroidism
6. BPH
7. History of bronchitis
8. History of tobacco abuse, quit in 2020
9. Asbestos exposure
ASSESSMENT & PLAN
Acute Urinary retention
apparent Guillain [place]
LP completed with noted elevated protein, consistent with GBS
Straight cath output 1.5L at time of admission
Placed indwelling F cath. Removed 12/07 and is voiding without difficulty
HX BPH
- NEG UA
- c/w ZOO VETERINARIAN Flomax
Pt goes to Dr. Chung
discussed with Dr. Farmer, DAPT started [address] Rice recommends Heparin to reduce the risk of DVT/PE while nonambulatory and concern was raised for use of [address] Farmer is okay with stopping Plavix while on Heparin and thus
was stopped, resumption once off Heparin can be considered
Discussed with KAL Croewll the Amiodarone/Toprol aspect. Pt did not have a problem with a.fib post operatively, but instead this was to be used for a short time post operatively to avoid developing a problem by protocol. Pt refused to take
medication following dc and she was made aware.
Severely deconditioning s/p prolonged hospitalization
Gradual weakness associated with acute ambulatory dysfunction
appreciate neuro evaluation, discussed with Dr. Latham, with association with Sushma Mcginnis
- PT/OT
- CRM consult for DC planning
to consider Acute Rehab, discussed with Dr. Rice, and extensively reviewed
?EMG
Reported black tarry stool on admission, none since. Stool produced first time since admission 12/07 was brown
Stable Hgb
Stable VSS
- recheck Hgb
Benign HTN:
- Hold HCTZ, Cozaar currently 25 mg daily, pt states home dose in 50 mg daily, will continue current dose as BP is well controlled
BP in 128-141/79-94 range
Conditions present prior to admission:
Anxiety.
Depression.
Hypothyroid.
Vitamin D deficiency.
BPH.
Lung cancer.
Chronic bronchitis.
DVT Px: SCD/SQ Heparin started 12/06, post LP
Code: Full
IP MS
Anticipated Discharge: 24 - 48 hours
Subjective/Interval History
-
Date of Service: December 09, 2023
Awake, alert, legs doing better, able to urinate, had large BM yesterday afternoon
Objective Data
-
Vital Signs:
Vital Signs
Temp Pulse Resp BP Pulse Ox
97.9 F 78 18 128/89 99
12/09/23 07:00 12/09/23 07:00 12/09/23 07:00 12/09/23 07:00 12/09/23 07:00
I&O
12/08/23 12/09/23 12/10/23
06:59 06:59 06:59
Intake Total 1860 / 1860 480 / 480
Output Total 2650 / 2650 2650 / 2650
Balance -790 / -790 -2170 / -2170
Review of Systems
-
History Source: Patient, Physician and Coordinated Provider
Constitutional: Denies Fever
EENT: Reports No Symptoms Reported
Respiratory: Reports No Symptoms
Cardiac: Reports No Symptoms
Abdomen/GI: Denies Abdominal Pain, Nausea, Vomiting or Constipated (resolved)
Genitourinary: Denies Difficulty Voiding (resolved)
Musculoskeletal: Reports Muscle Weakness (of bilateral LE, showing improvement)
Neuro: Reports Weakness; Denies Dizzy or Headache
Physical Exam
-
General: Well Developed, Well Nourished and No Apparent Distress
HEENT: Normocephalic, Atraumatic and Moist Mucous Membranes
Respiratory: Clear to Auscultation; Negative Wheezes, Rales or Rhonchi
Cardiac: Regular Rhythm and S1/S2
GI: Soft, Nontender and Nondistended
Genito-urinary: [place]
Musculoskeletal: No Clubbing, No Cyanosis and No Edema
Skin: Warm and Dry
Neuro: Awake, Alert and Oriented; Negative No Motor Deficits (not back to normal, but lower extremity weakness has improved significantly )
[2023-12-09 13:53] LABS: C.neoformans Antigen Negative (Negative)
[2023-12-09 14:10] VITALS: BP 142/86; PULSE 86; O2SAT 98
[2023-12-09 15:00] VITALS: BP 143/86
[2023-12-09 17:05] LABS: Myelin Basic Protein, CSF 2.56 ng/mL (0.00-5.50)
--- NOTE | 2023-12-09 17:28 | W.PN.NEURO.1 ---
Today's Communication / Plan
-
PT/OT
Proceed to Rehab
Neuro Assessment/Plan
Assessment
68 yr. old male with h/o lung cancer s/p lobectomy with complicated postop course who was admitted with progressive weakness difficulty standing and walking. 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
Plan
IVIg 5/5 completed on Wednesday 12/06
PT/OT
Inpatient Rehab
Subjective/Objective
Subjective Data
Date of Service: December 09, 2023
Pat is doing well. Continue to have weakness in his legs. Tingling and numbness in all four extremities
Objective Data
Vital Signs
Temp Pulse Resp BP Pulse Ox
36.2 C 82 18 143/86 100
12/09/23 15:00 12/09/23 15:00 12/09/23 15:00 12/09/23 15:00 12/09/23 15:00
Lab Results
12/08/23 05:19
12/08/23 05:19
Sodium 136 mmol/L (135-145) 12/08/23 05:19
Potassium 4.2 mmol/L (3.5-5.1) 12/08/23 05:19
BUN 13 mg/dl (9-20) 12/08/23 05:19
Glucose 88 mg/dl (70-99) 12/08/23 05:19
Calcium 8.9 mg/dl (8.4-10.2) 12/08/23 05:19
Patient Allergies
clarithromycin [From Biaxin] Allergy (Verified 10/16/23 14:57)
Tachycardia
clindamycin Allergy (Verified 10/16/23 14:57)
Restlessness, Heart bounding
Penicillins Allergy (Verified 12/07/23 17:44)
As a child
Physical Exam
-
General: Well Developed, Well Nourished and No Apparent Distress
Eyes: Able to visualize OU, Unremarkable, Round OU, No Ptosis and PERRLA
HEENT: Normocephalic, Atraumatic and Anicteric
Neck: Full Range of Motion
Respiratory: Clear to Auscultation
Cardiac: Regular Rhythm, No Murmur and S1/S2
GI: Normal Bowel Sounds
Skin: Unremarkable
Extremities: No Clubbing, No Cyanosis and No Edema
Psych: Unremarkable and Intact Judgement/Insight
Extended Neurological Exam
Mood & Affect: Mood Unremarkable and Affect Unremarkable
Attention Span & Concentration: Awake, Alert, Interactive, No Difficulty with 2 Step Request and No Problem with Right/Left Differentiation
Memory: Unremarkable, Able to Recall, Recalls Objects and Recalls Short Term
Tremor: Hand Tremor Absent and Head Tremor Absent
Involuntary Movement: None
Speech: Quality Unremarkable, Quantity Unremarkable and Rate of Production Unremarkable
Cranial Nerve II: Left Eye: Pupillary Reactivity Unremarkable, Pupillary Size Unremarkable and Visual Romero Grossly Intact
Cranial Nerve II: Right Eye: Pupillary Reactivity Unremarkable, Pupillary Size Unremarkable and Visual Romero Grossly Intact
Cranial Nerve V: Facial Sensation: Facial Sensation Unremarkable to Cold and Intact to Light Touch
Cranial Nerve VII: Facial Symmetry: Normal Facial Symmetry
Cranial Nerve VIII: Hearing: Unremarkable Hearing to Normal Conversational Volume
Cranial Nerves IX, X: Palate Movement: Palate Elevation Symmetric
Cranial Nerve XI: Shoulder Shrug: Unremarkable
Cranial Nerve XII: Tongue Protusion: Midline
Muscle Strength, Overall: Reduced Throughout and Reduced (Legs weaker than UE. Needs assist to stand and walk)
Muscle Bulk & Tone: Bulk Unremarkable and Tone Unremarkable
Pronator Drift: No Drift in Upper Extremities and No Drift in Lower Extremities
Deep Tendon Reflexes: Absent Throughout
Cold Sensation: Reduced Mildly Distally
Vibration Sensation: Reduced Mildly Distally
Touch Sensation: Pin Prick Reduced
Coordination: [id number] Testing Unremarkable and Reaches for Objects without Difficulty
Babinski Sign: Absent Bilaterally
Gait & Station: Up from Lying with Difficulty and Other (Needs assistance to stand and walk)
[2023-12-09] MEDS: TYLENOL 650 MG PO (18:54)
[2023-12-09 18:56] LABS: Paraneoplastic Ab IgG, CSF None Detected (None Detected)
[2023-12-09] MEDS: HEPARIN SC (19:49)
[2023-12-09] MEDS: FLOMAX 0.4 MG PO (21:47)
[2023-12-09] MEDS: NEURONTIN PO (22:06)
[2023-12-09 23:15] VITALS: BP 137/81
[2023-12-10 06:00] VITALS: BMI 22.2
[2023-12-10 07:46] VITALS: BP 146/90
[2023-12-10 07:57] LABS: % Basophils 0.8 % (0-2); % Eosinophils 21.7 % (0-6); % Immature Granulocytes 0.2 % (0-0.5); % Lymphocytes 25.1 % (20.5-51.1); % Monocytes 15.7 % (1.7-9.3); % Neutrophils 36.5 % (42.2-75.2); Absolute Eosinophils 1.1 10^3/uL (0-0.7); Absolute Lymphocytes 1.2 10^3/uL (1.2-3.4); Absolute Monocytes 0.8 10^3/uL (0.1-0.6); Absolute Neutrophils 1.8 10^3/uL (1.4-6.5); Hematocrit 32.6 % (39.0-52.0); Hemoglobin 11.4 g/dL (13.0-18.0); Mean Corpuscular Hgb 31.1 pg (27.0-31.0); Mean Corpuscular Volume 88.8 fL (80.0-94.0); Mean Platelet Volume 9.3 fL (7.4-10.4); Nucleated Red Blood Cells % 0 % (-); Platelet Count 307 10^3/uL (130-400); Red Blood Cell Count 3.67 10^6/uL (4.70-6.10); Red Cell Dist. Width 14.6 % (11.5-14.5); White Blood Cell Count 4.8 10^3/uL (4.8-10.8)
[2023-12-10 08:13] LABS: Blood Urea Nitrogen 21 mg/dl (9-20); Calcium 9.4 mg/dl (8.4-10.2); Carbon Dioxide 23 mmol/L (22-30); Chloride 103 mmol/L (98-107); Estimated Creatinine Clearance 79 ml/min; Glucose 89 mg/dl (70-99); Potassium 4.2 mmol/L (3.5-5.1); Sodium 140 mmol/L (135-145); eGFR > 60.00
[2023-12-10] MEDS: HEPARIN 5000 UNITS SC (08:46)
[2023-12-10] MEDS: ASPIR LOW (ENTERIC COATED) 81 MG PO (08:47)
[2023-12-10] MEDS: NORVASC 2.5 MG PO (08:48)
[2023-12-10] MEDS: PEPCID 20 MG PO (08:48)
[2023-12-10] MEDS: NEURONTIN 100 MG PO (08:48)
[2023-12-10] MEDS: COZAAR 25 MG PO (08:48)
[2023-12-10] MEDS: XANAX 0.5 MG PO ×2 (09:00→16:42)
--- NOTE | 2023-12-10 09:14 | W.PN.HOSP.TC ---
Addendum entered and electronically signed by Preeti Vines MD 12/10/23 21:03:
I saw and evaluated the patient independently. I reviewed the resident�s note and agree with findings and plan as documented by Dr. Pritchett.
GENERAL: well developed, well nourished, male in no apparent distress
HEENT: NC/AT--no O2 requirements
HEART: regular rate and rhythm, +S1, +S2
LUNGS : clear to auscultation bilaterally
ABDOM: soft, nontender, nondistended, + bowel sounds
EXT: no cyanosis, clubbing, or edema
NEUROLOGIC: weak LE bilaterally
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
placement. Patient refused to go to [facility] acute rehab, would prefer [facility] in [place] however no bed available. Reiterated recommendations for acute rehab sooner rather than later to begin improving deconditioning given that he is
appropriate for hospital discharge.
Acute urinary retention with h/o of BPH complicated by GBS- resolved--s/p ugarte- Continue home flomax--follow up with urology at d/c
History of AAA- DAPT started in 2020- Plavix held this admission while on heparin for vte ppx- restart plavix when off heparin
Essential HTN- Continue losartan 25mg daily, amlodipine 2.5mg daily- Hold HCTZ as BPs appropriate without.
Hypothyroidism- Asymptomatic, not currently on medications.
Anxiety/depression- Mood stable- Continue prn xanax per neurology
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
DVT proph -- SC heparin
Code status: Full
Original Note:
Today's Communication/Plan
-
Discharge to acute rehab when available
Assessment / Plan
Assessment / Plan
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
A/P
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
Deconditioning secondary to prolonged hospitalization
- Neurology following, appreciate recs. LP this admission consistent with GBS. S/p IVIG x5 days
- Symptoms improving compared to admission, however now experiencing severe deconditioning
- Appreciate recs from PM&R, plan for acute rehab at hospital discharge.
- Continue PT/OT
- Follow up with neurology as outpatient
- Stable for hospital discharge pending acute rehab placement. Patient refused to go to [facility] acute rehab, would prefer [facility] in [place] however no bed available. Reiterated recommendations for acute rehab sooner rather than later to
begin improving deconditioning given that he is appropriate for hospital discharge.
Acute urinary retention- resolved
H/o BPH
- Ugarte discontinued 12/07, patient has been voiding spontaneously since then. UA negative.
- Continue home flomax
- Patient follows with Dr Chung outpatient
History of AAA
- DAPT started in 2020
- Plavix held this admission while on heparin for vte ppx
- Will consider restarting plavix when off heparin
Essential HTN
- Continue losartan 25mg daily, amlodipine 2.5mg daily
- Hold HCTZ as BPs appropriate without.
Hypothyroidism
- Asymptomatic, not currently on medications.
- Follow up with PCP outpatient
Anxiety/depression
- Mood stable
- Continue prn xanax per neurology
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
History of tobacco use
History of asbestos exposure
Code status: Full
VTE ppx: ambulation as tolerated, heparin SQ, SCDs
Diet: regular
Dispo planning: acute rehab pending availability
Anticipated Discharge: Within 24 hours
Subjective/Interval History
-
Date of Service: December 10, 2023
No acute events overnight. Reports continued weakness, overall improving from admission. Reports occasional episodes of lightheadedness if sitting or standing too quickly. Denies chest pain, shortness of breath, nausea, vomiting, diarrhea,
constipation. Last BM 2 days ago, no black or bloody stools. Tolerating PO diet. Previously was having some difficulty swallowing, but this has resolved and he is careful while chewing- currently no pain/difficulty/coughing/choking with swallowing.
Out of bed to chair without assistance; working with PT/OT assistance.
Objective Data
-
Labs:
Laboratory Results
12/10/23
06:07
WBC 4.8
Hgb 11.4 L
Hct 32.6 L
Plt Count 307 D
Sodium 140
Potassium 4.2
Chloride 103
Carbon Dioxide 23
BUN 21 H
Creatinine 0.9
Glucose 89
Calcium 9.4
Vital Signs:
Vital Signs
Temp Pulse Resp BP Pulse Ox
98.1 F 87 18 146/90 98
12/10/23 07:46 12/10/23 07:46 12/10/23 07:46 12/10/23 07:46 12/10/23 07:46
I&O
12/09/23 12/10/23 12/11/23
06:59 06:59 06:59
Intake Total 480 / 480 2400 / 2400
Output Total 2650 / 2650 2275 / 2275 900 / 900
Balance -2170 / -2170 125 / 125 -900 / -900
Review of Systems
-
History Source: Patient
All other systems: Not reviewed unless documented
Physical Exam
-
General: Well Developed, Well Nourished, No Apparent Distress, Comfortable and Conversant
HEENT: Normocephalic and Atraumatic
Respiratory: Non Labored Respirations
Cardiac: Regular Rhythm and S1/S2
GI: Soft, Nontender, Nondistended and Normal Bowel Sounds
Musculoskeletal: No Edema
Skin: Warm and Dry
Neuro: Awake, Alert and Oriented
Psych: Calm and Intact Judgement/Insight
Data Reviewed
-
Labs: Labs Reviewed by me and Discussed with Physician
--- NOTE | 2023-12-10 09:51 | W.PN.NEURO.1 ---
Today's Communication / Plan
-
PT/OT
Inpatient Rehab
Will need outpatient blood work for potential antibodies as cause
Neuro Assessment/Plan
Assessment
68 yr. old male with h/o lung cancer s/p lobectomy with complicated postop course who was admitted with progressive weakness difficulty standing and walking. Proximal weakness with areflexia c/w Guillain [place] syndrome, also experienced bladder
dysfunction, potentially suggestive of a ganglionopathy or Guillain-[place] Syndrome
IVIg five doses completed on Sunday12/07/2023
Plan
PT/OT
Inpatient Rehab
Will need outpatient blood work for potential antibodies as cause
Will follow as outpatient.
Subjective/Objective
Subjective Data
Date of Service: December 10, 2023
Some improved in weakness since IVIG doses
Paresthesia in hands and distal arms started few days ago
Arms are 50% of normal, legs are 30% of normal per patient
Bladder function has much improved, bowel movements regular after stool softener given
Objective Data
Vital Signs
Temp Pulse Resp BP Pulse Ox
36.7 C 87 18 146/90 98
12/10/23 07:46 12/10/23 07:46 12/10/23 07:46 12/10/23 07:46 12/10/23 07:46
Lab Results
12/10/23 06:07
12/10/23 06:07
Sodium 140 mmol/L (135-145) 12/10/23 06:07
Potassium 4.2 mmol/L (3.5-5.1) 12/10/23 06:07
BUN 21 mg/dl (9-20) H 12/10/23 06:07
Glucose 89 mg/dl (70-99) 12/10/23 06:07
Calcium 9.4 mg/dl (8.4-10.2) 12/10/23 06:07
Patient Allergies
clarithromycin [From Biaxin] Allergy (Verified 10/16/23 14:57)
Tachycardia
clindamycin Allergy (Verified 10/16/23 14:57)
Restlessness, Heart bounding
Penicillins Allergy (Verified 12/07/23 17:44)
As a child
Review of Systems
-
History Source: Patient
All other systems: Reviewed and negative
Abdomen/GI: Negative Incontinence of Stool
Genitourinary: Negative Incontinence
Physical Exam
-
Pronator drift (-)
Areflexic in LEs
L arm with smaller orbit on arm roll
Muscle strength - R 1st toe (2/5), otherwise 4/5
No drift in any extremity
Babinski (-)
General: Well Developed, Well Nourished and No Apparent Distress
Eyes: Able to visualize OU, Unremarkable, Round OU, No Ptosis and PERRLA
HEENT: Normocephalic, Atraumatic and Anicteric
Neck: Full Range of Motion
Cardiac: No JVD
GI: Non-distended
Skin: Unremarkable
Extremities: No Clubbing, No Cyanosis and No Edema
Psych: Intact Judgement/Insight
Extended Neurological Exam
Mood & Affect: Other (Mildly pressured)
Attention Span & Concentration: Awake, Alert, Interactive and No Difficulty with 2 Step Request
Memory: Unremarkable
Tremor: Hand Tremor Absent and Head Tremor Absent
Involuntary Movement: None
Speech: Quality Unremarkable and Quantity Unremarkable
Cranial Nerve II: Left Eye: Pupillary Size Unremarkable and Visual Romero Grossly Intact
Cranial Nerve II: Right Eye: Pupillary Size Unremarkable and Visual Romero Grossly Intact
Cranial Nerves III, IV, : Extraocular Movement: Extraocular Movement Full in all Directions
Cranial Nerve VII: Facial Symmetry: Normal Facial Symmetry
Cranial Nerve VIII: Hearing: Unremarkable Hearing to Normal Conversational Volume
Cranial Nerve XI: Shoulder Shrug: Unremarkable
Muscle Strength, Overall: Reduced Throughout and Reduced (Legs weaker than UE, proximal > distally in LE; Full in hands)
Muscle Bulk & Tone: Bulk Unremarkable and Tone Unremarkable
Pronator Drift: No Drift in Upper Extremities and No Drift in Lower Extremities
Deep Tendon Reflexes: Absent Throughout
Babinski Sign: Absent Bilaterally
Data Reviewed
-
MRI Cervical Spine: Report Reviewed
MRI Thoracic Spine: Report Reviewed
MRI Lumbar Spine: Report Reviewed
Labs: Report Reviewed
Reviewed with: Physician, Nurse Practioner and Patient
Old Records: Summarized
Past History
Past History
ED Past Medical History: Cancer (Skin CA), HTN and Other (AAA, DVT, thyroid disorder, skin cancer, Cellulitis, Aspergers syndrome)
ED Past Surgical History: Tonsilectomy and Other (AAA repair, Right vein stripping, Left shoulder Mohs surgery)
Social History
Tobacco: Former smoker
Alcohol: None
Personal: Single
Living: alone
Employment: Retired
Family History
Family History: Other (Noncontributory)
Medications
-
Medications:
Generic Name Dose Route Start Last Admin
Trade Name Freq PRN Reason Stop Dose Admin
Acetaminophen 650 mg 12/03/23 08:51 12/09/23 18:54
Acetaminophen 325 Mg Tablet PO 12/31/23 08:50 650 mg
Q4HPRN PRN Administration
headache
Alprazolam 0.5 mg 12/06/23 09:30 12/10/23 09:00
Alprazolam 0.5 Mg Tablet PO 01/03/24 09:29 0.5 mg
Q6HPRN PRN Administration
anxiety
Amlodipine Besylate 2.5 mg 12/03/23 08:00 12/10/23 08:48
Amlodipine 2.5 Mg Tablet PO 12/31/23 07:59 2.5 mg
DAILY CAMPBELL Administration
Aspirin 81 mg 12/08/23 08:00 12/10/23 08:47
Aspirin 81 Mg (Enteric Coated) Tablet PO 01/05/24 07:59 81 mg
DAILY CAMPBELL Administration
Bisacodyl 10 mg 12/02/23 15:04
Bisacodyl 10 Mg Rectal Suppository RECTAL 12/30/23 15:03
[id number] PRN
constipation
Famotidine 20 mg 12/08/23 12:00 12/10/23 08:48
Famotidine 20 Mg Tablet PO 01/05/24 11:59 20 mg
DAILY CAMPBELL Administration
Gabapentin 100 mg 12/09/23 22:00 12/10/23 08:48
Gabapentin 100 Mg Capsule PO 01/06/24 21:59 100 mg
TID CAMPBELL Administration
Heparin Sodium 5,000 units 12/07/23 20:00 12/10/23 08:46
Heparin 5,000 Units/Ml 1 Ml Vial SC 01/04/24 19:59 5,000 units
Q12 CAMPBELL Administration
Losartan Potassium 25 mg 12/03/23 08:00 12/10/23 08:48
Losartan 25 Mg Tablet PO 12/31/23 07:59 25 mg
DAILY CAMPBELL Administration
Polyethylene Glycol 17 grams 12/02/23 15:04
Polyethylene Glycol Powder 17 Grams Packet PO 12/30/23 15:03
DAILYPRN PRN
constipation
Senna/Docusate Sodium 1 tablet 12/02/23 15:04 12/08/23 09:29
Docusate W/Senna (Hien-Colace) Tablet PO 12/30/23 15:03 1 tablet
BIDPRN PRN Administration
constipation
Sodium Chloride 0 flush 12/03/23 09:00 12/08/23 09:36
Sodium Chloride 0.9% (Flush) Syringe IV 12/31/23 08:59 1 flush
PER PROTOCOL CAMPBELL Administration
Tamsulosin HCl 0.4 mg 12/02/23 22:00 12/09/23 21:47
Tamsulosin 0.4 Mg Capsule PO 12/30/23 21:59 0.4 mg
HS CAMPBELL Administration
[2023-12-10 10:30] VITALS: BP 142/91; BP 149/83; PULSE 69; PULSE 81; O2SAT 99
[2023-12-10 10:50] VITALS: BP 142/91; BP 146/88; BP 149/83; PULSE 68; PULSE 81; O2SAT 99
[2023-12-10 15:53] VITALS: BP 141/83
--- NOTE | 2023-12-10 16:25 | CM ---
Spoke with Sena Nicole this am .One Bed available at [facility].
[facility] bed not available.No beds
Spoke with pt asking what his decision was. He said he needs to think about it and review with his .
Offered to place additional acute rehab referral in computer . He said he is unsure.
IMM reviewed with him . IMM signed on chart. IMM copy given to patient.
Sena Nicole spoke with pt this afternoon. Pt still undecided. As per Core[facility] Shetty no longer bed at [facility].
PLAN SNF VS Acute rehab( No additional referral received from pt)
[2023-12-10] MEDS: NEURONTIN PO ×3 (16:41→19:45)
[2023-12-10] MEDS: SENOKOT-S 1 TABLET PO (16:42)
--- NOTE | 2023-12-10 16:55 | PTCARENOTE ---
Patient requested PRN Xanax. Administered pill in patients hand to take. I watched patient place palm to his mouth take a sip of water and than place the pill in the pocket of gown. I asked patient 'did you just place it in your pocket?' Which he
denied. I asked can I look in your pocket. He said Yes I can check his pocket. The xanax pill was found in his pocket. Patient stated he must of dropped it. Patient than took Xanax. Compliance Lead Qasim made aware.
[2023-12-10 16:56] LABS: Lyme Disease DNA by PCR Not Detected; Lyme Source CSF
[2023-12-10 18:27] LABS: Albumin Index 18.6 ratio (0.0-9.0); Albumin, CSF 72 mg/dL (0-35); Albumin, Serum 3861 mg/dL (3500-5200); CSF IgG Synthesis Rate 33.4 mg/d (<=8.0); CSF IgG/Albumin Ratio 0.19 ratio (0.09-0.25); CSF Oligoclonal Bands Negative (Negative); CSF Oligoclonal Bands Number 0 Bands (0-1); IgG 770 mg/dL (768-1632); IgG, CSF 13.5 mg/dL (0.0-6.0)
[2023-12-10] MEDS: HEPARIN SC (19:45)
[2023-12-10] MEDS: TYLENOL 650 MG PO (19:56)
[2023-12-10] MEDS: XANAX PO (22:45)
[2023-12-10] MEDS: FLOMAX 0.4 MG PO (22:45)
[2023-12-10 23:15] LABS: Angiotensin-1- Converting, CSF 2.1 U/L (0.0-2.5)
[2023-12-10 23:52] VITALS: BP 126/72
[2023-12-11 06:00] VITALS: BMI 21.5
[2023-12-11 07:00] VITALS: BP 114/83
[2023-12-11] MEDS: ASPIR LOW (ENTERIC COATED) 81 MG PO (08:21)
[2023-12-11] MEDS: COZAAR 25 MG PO (08:21)
[2023-12-11] MEDS: HEPARIN 5000 UNITS SC (08:23)
[2023-12-11] MEDS: PEPCID 20 MG PO (08:24)
[2023-12-11] MEDS: NEURONTIN PO ×4 (08:24→20:57)
[2023-12-11] MEDS: NORVASC 2.5 MG PO (08:24)
[2023-12-11] MEDS: FLUSH (NSS) 1 FLUSH IV (08:26)
[2023-12-11] MEDS: SENOKOT-S 1 TABLET PO (08:37)
[2023-12-11] MEDS: XANAX 0.5 MG PO ×2 (08:37→16:02)
[2023-12-11] MEDS: TYLENOL 650 MG PO ×2 (09:47→16:02)
[2023-12-11 09:57] VITALS: BP 127/83; PULSE 84; O2SAT 98
--- NOTE | 2023-12-11 13:37 | CM ---
Patient seen at bedside with physician. Patient willing for CM to send referrals to Acute Rehab at [facility]. No available beds today for patient at [facility], bed previously offered is no longer available and patient updated. CM will
continue to follow for discharge planning needs.
Plan; acute rehab vs SNF
--- NOTE | 2023-12-11 13:38 | W.PN.HOSP.TC ---
Addendum entered and electronically signed by Preeti Vines MD 12/11/23 15:26:
I saw and evaluated the patient independently. I reviewed the resident�s note and agree with findings and plan as documented by Dr. Hernandez.
GENERAL: well developed, well nourished, male in no apparent distress
HEENT: NC/AT--no O2 requirements
HEART: regular rate and rhythm, +S1, +S2
LUNGS : clear to auscultation bilaterally
ABDOM: soft, nontender, nondistended, + bowel sounds
EXT: no cyanosis, clubbing, or edema
NEUROLOGIC: weak LE bilaterally
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
placement. Lost any acute beds at [facility]-- Reiterated recommendations for acute rehab sooner rather than later to begin improving deconditioning given that he is appropriate for hospital discharge.
Acute urinary retention with h/o of BPH complicated by GBS- resolved--s/p ugarte- Continue home flomax--follow up with urology at d/
History of AAA- DAPT started in 2020- Plavix held this admission while on heparin for DVT proph- restart plavix when off heparin
Essential HTN- Continue losartan 25mg daily, amlodipine 2.5mg daily- Hold HCTZ as BPs appropriate without.
Hypothyroidism- Asymptomatic, not currently on medications.
Anxiety/depression- Mood stable- Continue prn xanax per neurology
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
DVT proph -- SC heparin
Code status: Full
medically clear for d/c
Original Note:
Today's Communication/Plan
-
.
Assessment / Plan
Assessment / Plan
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
A/P
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
Deconditioning secondary to prolonged hospitalization
- Neurology following, appreciate recs. LP this admission consistent with GBS. S/p IVIG x5 days
- Symptoms improving compared to admission, however now experiencing severe deconditioning
- Appreciate recs from PM&R, plan for acute rehab at hospital discharge.
- Continue PT/OT
- Follow up with neurology as outpatient
- Stable for hospital discharge pending acute rehab placement. Patient refused to go to [facility] acute rehab, would prefer [facility] in [place] however no bed available. Reiterated recommendations for acute rehab sooner rather than later to
begin improving deconditioning given that he is appropriate for hospital discharge.
Acute urinary retention- resolved
H/o BPH
- Ugarte discontinued 12/07, patient has been voiding spontaneously since then. UA negative.
- Continue home flomax
- Patient follows with Dr Chung outpatient
History of AAA
- DAPT started in 2020
- Plavix held this admission while on heparin for vte ppx
- Will consider restarting plavix when off heparin
Essential HTN
- Continue losartan 25mg daily, amlodipine 2.5mg daily
- Hold HCTZ as BPs appropriate without.
Hypothyroidism
- Asymptomatic, not currently on medications.
- Follow up with PCP outpatient
Anxiety/depression
- Mood stable
- Continue prn xanax per neurology
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
History of tobacco use
History of asbestos exposure
Code status: Full
VTE ppx: ambulation as tolerated, heparin SQ, SCDs
Diet: regular
Dispo planning: acute rehab pending availability
Anticipated Discharge: Within 24 hours
Subjective/Interval History
-
Date of Service: December 11, 2023
Objective Data
-
Vital Signs:
Vital Signs
Temp Pulse Resp BP Pulse Ox
98.7 F 91 16 114/83 98
12/11/23 07:00 12/11/23 07:00 12/11/23 07:00 12/11/23 07:00 12/11/23 07:00
I&O
12/10/23 12/11/23 12/12/23
06:59 06:59 06:59
Intake Total 2400 / 2400 2640 / 2640
Output Total 2275 / 2275 2375 / 2375
Balance 125 / 125 265 / 265
Review of Systems
-
All other systems: Reviewed and negative (Except as documented)
Physical Exam
-
General: Well Developed and Well Nourished
Respiratory: Clear to Auscultation
Cardiac: S1/S2
GI: Soft, Nontender, Nondistended and Normal Bowel Sounds
Musculoskeletal: No Edema
[2023-12-11 15:09] VITALS: BP 135/81
[2023-12-11] MEDS: FLOMAX 0.4 MG PO (20:57)
[2023-12-11] MEDS: HEPARIN SC (21:49)
[2023-12-11 23:55] VITALS: BP 151/83
[2023-12-12] MEDS: TYLENOL 650 MG PO ×2 (05:23→11:26)
[2023-12-12] MEDS: XANAX 0.5 MG PO ×2 (05:23→11:27)
[2023-12-12 06:00] VITALS: BMI 22.2
--- NOTE | 2023-12-12 07:47 | W.PN.HOSP.TC ---
Addendum entered and electronically signed by Preeti Vines MD 12/12/23 17:05:
I saw and evaluated the patient independently. I reviewed the resident�s note and agree with findings and plan as documented by Dr. Hernandez.
GENERAL: well developed, well nourished, male in no apparent distress
HEENT: NC/AT--no O2 requirements
HEART: regular rate and rhythm, +S1, +S2
LUNGS : clear to auscultation bilaterally
ABDOM: soft, nontender, nondistended, + bowel sounds
EXT: no cyanosis, clubbing, or edema
NEUROLOGIC: weak LE bilaterally
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
Acute urinary retention with h/o of BPH complicated by GBS- resolved--s/p ugarte- Continue home flomax--follow up with urology at d/c
History of AAA- DAPT started in 2020- Plavix held this admission while on heparin for DVT proph- restart plavix when off heparin
Essential HTN- Continue losartan 25mg daily, amlodipine 2.5mg daily- Hold HCTZ as BPs appropriate without.
Hypothyroidism- Asymptomatic, not currently on medications.
Anxiety/depression- Mood stable- Continue prn xanax per neurology
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
DVT proph -- SC heparin
Code status: Full
medically clear for d/c to [facility]
Original Note:
Today's Communication/Plan
-
Awaiting placement. Medical clear for d/c
Assessment / Plan
Assessment / Plan
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
A/P
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
Deconditioning secondary to prolonged hospitalization
- Neurology following, appreciate recs. LP this admission consistent with GBS. S/p IVIG x5 days
- Symptoms improving compared to admission, however now experiencing severe deconditioning
- Appreciate recs from PM&R, plan for acute rehab at hospital discharge.
- Continue PT/OT
- Follow up with neurology as outpatient
- Stable for hospital discharge pending acute rehab placement. Patient refused to go to [facility] acute rehab, would prefer [facility] in [place] however no bed available. Reiterated recommendations for acute rehab sooner rather than later to
begin improving deconditioning given that he is appropriate for hospital discharge.
Acute urinary retention- resolved
H/o BPH
- Ugarte discontinued 12/07, patient has been voiding spontaneously since then. UA negative.
- Continue home flomax
- Patient follows with Dr Chung outpatient
History of AAA
- DAPT started in 2020
- Plavix held this admission while on heparin for vte ppx
- Will consider restarting plavix when off heparin
Essential HTN
- Continue losartan 25mg daily, amlodipine 2.5mg daily
- Hold HCTZ as BPs appropriate without.
Hypothyroidism
- Asymptomatic, not currently on medications.
- Follow up with PCP outpatient
Anxiety/depression
- Mood stable
- Continue prn xanax per neurology
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
History of tobacco use
History of asbestos exposure
Code status: Full
VTE ppx: ambulation as tolerated, heparin SQ, SCDs
Diet: regular
Dispo planning: acute rehab pending availability
Anticipated Discharge: 24 - 48 hours
Subjective/Interval History
-
Date of Service: December 12, 2023
Objective Data
-
Vital Signs:
Vital Signs
Temp Pulse Resp BP Pulse Ox
98 F 72 20 151/83 97
12/11/23 23:55 12/11/23 23:55 12/11/23 23:55 12/11/23 23:55 12/11/23 23:55
I&O
12/11/23 12/12/23 12/13/23
06:59 06:59 06:59
Intake Total 2640 / 2640 2220 / 2220
Output Total 2375 / 2375 3525 / 3525
Balance 265 / 265 -1305 / -1305
Physical Exam
-
General: Well Developed and Well Nourished
Respiratory: Clear to Auscultation
Cardiac: Regular Rhythm and S1/S2
GI: Soft, Nontender, Nondistended and Normal Bowel Sounds
Musculoskeletal: No Edema
Neuro: AO x 3
[2023-12-12 08:05] VITALS: BP 140/94
[2023-12-12] MEDS: NEURONTIN PO ×2 (08:11→16:01)
[2023-12-12] MEDS: NORVASC 2.5 MG PO (08:12)
[2023-12-12] MEDS: ASPIR LOW (ENTERIC COATED) 81 MG PO (08:12)
[2023-12-12] MEDS: COZAAR 25 MG PO (08:12)
[2023-12-12] MEDS: PEPCID 20 MG PO (08:13)
[2023-12-12] MEDS: HEPARIN 5000 UNITS SC (08:13)
[2023-12-12] MEDS: SENOKOT-S 1 TABLET PO (10:11)
[2023-12-12 10:40] VITALS: BP 133/83; PULSE 83; O2SAT 100
--- NOTE | 2023-12-12 11:01 | CM ---
Patient offered bed at [facility] today here at and a bed at [facility]. Patient accepted bed at [facility]. Nursing and physician aware. Patient given IMM and is reviewing form. Per [facility] patient bed available after 4pm [facility] today. CM will continue
to follow for discharge planning needs.
Plan; [facility] today; please call report after 4pm.
--- NOTE | 2023-12-12 15:36 | W.DCSUMMARY ---
Addendum entered and electronically signed by Preeti Vines MD 12/12/23 18:47:
Read, reviewed, and agree. See same day progress note for additional details. Time spent coordinating care, DC planning, review of DC plan of care with resident, transition of care, review of records in EMR, med rec, consults, notes, d/w
consultants, nursing, family, and CM = 39 minutes
pt is stable for d/c to [facility] at this time.
Original Note:
Discharge Summary
Discharge Data
Date of Admission: 12/02/23
Date of Discharge: 12/12/23
Total time spent discharging patient (in min): 39
-
Pending Results: No
Hospital Course
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
presented to ED 12/02/2023 complaining of weakness, difficulty emptying his bladder and black tarry stool, all symptoms ongoing for the past 5 days. Patient reported all symptoms started a few days after discharge from the hospital post-op. On
presentation to ER, patient was afebrile with vital sign stable. Hemoglobin was stable at 12.1. Abdominal CT scan was ordered which was negative for any acute GI pathology. Heme Occult blood testing was negative. Neurology was consulted and
there were concerns for Paraneoplastic Lambert Eaton syndrome syndrome versus paraneoplastic neuropathy versus critical care neuropathy versus cervical myelopathy. Cervical and lumbar spine MRI were ordered with results below. Lumbar puncture was
ordered, noting elevated protein consistent with Guillain-Paskenta Syndrome. Patient had difficulty voiding requiring Alonzo catheter placement. He was started on IVIG and completed a 5-day total course. After completion of treatment, patient was
able to stand and sit with support, with symptoms improving compared to admission. He regained full bladder function and Alonzo catheter was removed after positive voiding trial. Physiatry was consulted for evaluation, and it was determined he
would benefit from acute rehab to begin improving deconditioning. Patient will be discharged to Acute Inpatient Rehabilitation. Patient with a history of abdominal aortic aneurysm status post EVAR. He was started on dual antiplatelet therapy in
2020. After discussion with vascula during this admission, it was decided aspirin be stopped and he should be continued on Plavix.
Essential hypertension; during the course of his hospital stay, his regimen was adjusted. His blood pressures were appropriate without hydrochlorothiazide, hence medication was stopped. He will be continued on losartan 25 mg and amlodipine 2.5 mg
daily.
Cervical spine MRI 12/04/2023: No discrete abnormal T2 hyperintense signal or enhancement within the cervical spinal cord. Straightening of the cervical spine with multilevel degenerative changes with resultant multifocal spinal canal and
neuroforaminal narrowing most pronounced at the C4-5 and C5-6 levels. At C4-C5 and C5-C6 there is moderate bilateral neuroforaminal narrowing without significant spinal canal stenosis.
Lumbar spine MRI 12/04/23: There is questionable linear enhancement within the anterior thecal sac at the L1-L2 levels which may be vascular in nature however may represent enhancement along the ventral cauda equina which can be seen with AIDP/GBS,
post lumbar puncture or less likely leptomeningeal metastasis. Consider correlation with lumbar puncture if not previously obtained. There is grade 1 anterolisthesis of L4 on L5 and trace retrolisthesis of L5 on S1 with multilevel degenerative
changes. Findings are most pronounced at the L4-L5 level where there is moderate canal stenosis and severe bilateral neuroforaminal narrowing.
Discharge Plan
-
Patient Disposition: Acute Rehab Facility
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
Acute urinary retention with h/o of BPH complicated by GBS
Essential Hypertension
Hypothyroidism
Anxiety
Condition: Fair
Diet: Regular
Activity: As tolerated
Driving Restrictions: No driving
Bathing Restrictions: None
Referrals:
Edu Acuna, DO [Family Provider] - in less than 1 week
Additional Discharge Medication Instructions: losartan 25 mg FOR hypertension
Stop HCTZ
Prescriptions:
New
losartan 25 mg Tablet
25 mg PO DAILY Qty: 30 0RF
Continued
amlodipine 2.5 MG tablet
2.5 mg PO DAILY
tamsulosin 0.4 MG capsule
0.4 mg PO HS
albuterol sulfate 90 mcg/actuation Hfa Aerosol Inhaler
2 puff INHALATION R Q6HPRN PRN (Reason: SOB)
acetaminophen 325 mg Tablet
650 mg PO Q6HPRN PRN (Reason: mild pain)
alprazolam 0.5 mg Tablet
0.5 mg PO BID PRN (Reason: anxiety )
clopidogrel 75 MG tablet
75 mg PO DAILY
Discontinued
losartan-hydrochlorothiazide 50-12.5 mg Tablet
1 tab PO DAILY
oxycodone 5 mg capsule
2.5 mg PO Q8HPRN PRN (Reason: Severe pain)
Discharge Orders:
Discharge Patient (As Directed); Ordered 12/12/23
Ordered By: Pratima Hernandez
Discharge Date and Time
Discharge Date/Time: 12/12/23 16:59
Print Language: BELARUSIAN
[2023-12-12 15:51] VITALS: BP 131/72
== END 2023-12-12 16:59 | DRG 95 ==
LOC: 4 EAST ACU 12:59
PROVIDERS: Emergency Medicine; Internal Medicine; Radiology Vascular & Interventional Radiology; Student in an Organized Health Care Education/Training Program; ADMITTING PHYSICIAN Internal Medicine; ATTENDING PHYSICIAN Internal Medicine; CONSULT PHYSICIAN Physical Medicine & Rehabilitation; CONSULT PHYSICIAN Psychiatry & Neurology Neurology; CONSULT PHYSICIAN Specialist; EMERGENCY PHYSICIAN Emergency Medicine; FAMILY PHYSICIAN Family Medicine
PROC: 30233S1 Transfusion of Nonautologous Globulin into Peripheral Vein, Percutaneous Approach (ICD-10-PCS; 2023-12-03)
PROC: 009U3ZX Drainage of Spinal Canal, Percutaneous Approach, Diagnostic (ICD-10-PCS; 2023-12-06)
DX: G61.0 Guillain-Barre syndrome (principal); C34.32 Malignant neoplasm of lower lobe, left bronchus or lung; F84.5 Asperger's syndrome; E03.9 Hypothyroidism, unspecified; F41.9 Anxiety disorder, unspecified; K59.00 Constipation, unspecified; F32.A Depression, unspecified; N40.1 Benign prostatic hyperplasia with lower urinary tract symptoms; R33.8 Other retention of urine; R29.6 Repeated falls; E55.9 Vitamin D deficiency, unspecified; I10 Essential (primary) hypertension; J42 Unspecified chronic bronchitis; Z90.2 Acquired absence of lung [part of]; Z79.899 Other long term (current) drug therapy; Z79.82 Long term (current) use of aspirin; Z79.02 Long term (current) use of antithrombotics/antiplatelets; Z87.891 Personal history of nicotine dependence; Z88.1 Allergy status to other antibiotic agents; Z88.0 Allergy status to penicillin; Z95.828 Presence of other vascular implants and grafts; Z86.79 Personal history of other diseases of the circulatory system; Z86.718 Personal history of other venous thrombosis and embolism; Z77.090 Contact with and (suspected) exposure to asbestos
CPT/HCPCS: 51701; 51798; 62328; 70450; 71046; 72156; 72158; 74177; 80048; 80053; 81003; 82040; 82042; 82164; 82784; 82945; 83873; 83916; 84157; 85025; 85027; 86255; 86803; 87015; 87070; 87116; 87205; 87327; 87476; 87483; 89051; 93005; 94640; 97110; 97116; 97167; 97530; 97535; 99285; A9575; J1569; Q9967

== ENCOUNTER 2024-04-15 19:39 | Emergency (ER) | payer MEDICARE, SELFPAY ==
[2024-04-15 19:39] VITALS: BMI 24.1
[2024-04-15 19:43] VITALS: BP 173/103
[2024-04-15 20:27] LABS: % Basophils 0.7 % (0-2); % Eosinophils 1.2 % (0-6); % Immature Granulocytes 0.3 % (0-0.5); % Lymphocytes 19.2 % (20.5-51.1); % Monocytes 7.8 % (1.7-9.3); % Neutrophils 70.8 % (42.2-75.2); Absolute Basophils 0.1 10^3/uL (0-0.2); Absolute Eosinophils 0.1 10^3/uL (0-0.7); Absolute Lymphocytes 1.5 10^3/uL (1.2-3.4); Absolute Monocytes 0.6 10^3/uL (0.1-0.6); Absolute Neutrophils 5.3 10^3/uL (1.4-6.5); Hematocrit 40.4 % (39.0-52.0); Hemoglobin 13.8 g/dL (13.0-18.0); Mean Corp Hgb Conc. 34.2 g/dL (33.0-37.0); Mean Corpuscular Hgb 29.5 pg (27.0-31.0); Mean Corpuscular Volume 86.3 fL (80.0-94.0); Mean Platelet Volume 9.8 fL (7.4-10.4); Nucleated Red Blood Cells % 0 % (-); Platelet Count 260 10^3/uL (130-400); Red Blood Cell Count 4.68 10^6/uL (4.70-6.10); Red Cell Dist. Width 14.9 % (11.5-14.5); White Blood Cell Count 7.5 10^3/uL (4.8-10.8)
[2024-04-15 20:39] LABS: ALT (SGPT) 12 U/L (0-50); AST (SGOT) 21 U/L (17-59); Albumin 4.5 g/dl (3.5-5.0); Alkaline Phosphatase 81 U/L (38-126); Blood Urea Nitrogen 11 mg/dl (9-20); Calcium 9.8 mg/dl (8.4-10.2); Carbon Dioxide 24 mmol/L (22-30); Chloride 105 mmol/L (98-107); Glucose 102 mg/dl (70-99); Potassium 4.3 mmol/L (3.5-5.1); Sodium 136 mmol/L (135-145); Total Bilirubin 0.8 mg/dl (0.2-1.3); Total Protein 7.5 g/dl (6.3-8.2); eGFR > 60.00
[2024-04-15 20:50] LABS: Troponin I < 0.012 ng/ml
--- NOTE | 2024-04-15 22:41 | ED.GENMED ---
History of Present Illness
General
Chief Complaint: Generalized Pain
Source: patient
Exam Limitations: none
Time Seen by Provider: 04/15/24 22:25
Nursing documentation reviewed up to this point in time: agreed with
History of Present Illness
History of Present Illness:
Pleasant 68-year-old male presents to the emergency department with several complaints. Patient had a partial left-sided pneumonectomy in November. He then had developed subcutaneous emphysema during his recovery. Which prolonged his hospital
stay. He was discharged at 6 days later he was readmitted with Guillain-Juarez� syndrome. Patient has been recovering at home, gaining strength day by day. Patient is concerned because he has been getting weaker and 'lightheaded every time he
stands up '. He is concerned that he may be developing Guillain-Juarez� syndrome again. Patient denies fever, chills, nausea or vomiting. Has been having reflux-like chest pain
Vital signs are stable. Patient not hypoxic
Nursing note reviewed. I agree with nursing documentation up to this point in time.
Home Meds and allergies reviewed.
NUMBER AND COMPLEXITY OF PROBLEMS ADDRESSED AT THE ENCOUNTER
� Chronic conditions affecting care: He does report bilateral kidney pain. Recent pneumonectomy, DM Juarez� syndrome, COPD, bronchitis, DVT, hypertension, AAA with repair
� Acute Exacerbation and/or Progression of Chronic Illness:
� Differential Diagnosis includes: UTI, viral syndrome
AMOUNT AND/OR COMPLEXITY OF DATA TO BE REVIEWED AND ANALYZED
I performed an independent evaluation of the following and my interpretation is:
EKG: EKG shows normal sinus rhythm rate of 80 with occasional PSVT present no evidence of acute ischemia present.
Pulse Ox: Not Hypoxic. 100% on room air
[employer] Professor: Sinus Rhythm
CT:
X-rays:
Ultrasound:
Laboratory Studies:
Other:
Review of other/old records:
Clinical information was obtained by an independent historian:
Prescriptions/Medications Considered but not given:
Further testing considered but not performed:
RISK OF COMPLICATIONS AND/OR MORBIDITY OR MORTALITY OF PATIENT MANAGEMENT
Social determinants of health affecting care: Good Social Support
Discussion with other providers:
Escalation of care including admission/observation vs risk of discharge considered: After being observed in the emergency department, patient is
CRITICAL CARE NOTE:
Total Time (exclusive of procedures):
Update:
Past History
Past History
ED Past Medical History: Cancer (Skin CA), HTN and Other (AAA, DVT, thyroid disorder, skin cancer, Cellulitis, Aspergers syndrome)
ED Past Surgical History: Tonsilectomy and Other (AAA repair, Right vein stripping, Left shoulder Mohs surgery)
Social History
Tobacco: Former smoker
Alcohol: None
Personal: Single
Living: alone
Employment: Retired
Family History
Family History: Other (Noncontributory)
Phy Exam
General Physical Exam
General Presentation: well appearing and no apparent distress
General Skin: warm and dry
General Habitus: normal
General Mental: alert
General Hydration: appears well hydrated
ENT Exam
ENT Exam: EOMI, pharynx normal, neck supple and normocephalic
Eye Exam
Eye Exam: PERRL, cornea clear and conjunctiva normal
Cardiovascular Exam
Cardiovascular Exam: regular rate/rhythm, no edema, no murmur and normal peripheral pulses
Pulmonary Exam
Pulmonary Exam: lungs clear, no respiratory distress, no rales, no crackles, no rhonchi, no stridor, no wheezing and no cough
Gastrointestinal Exam
Gastrointestinal Exam: normal bowel sounds, non tender, soft, no organomegaly, no pulsatile mass and non distended
Neurological Exam
Neurological Exam: alert, oriented x3, no motor deficits and speech normal
Musculoskeletal Exam
Musculoskeletal Exam: full ROM and no edema
Skin Exam
Skin Exam: normal color, warm/dry, no rash and no petechia
Psychiatric Exam
Psychiatric Exam: normal mood/affect
Course
Orders/Labs/Results
Orders:
Orders
04/15/24 19:42
Electrocardiogram (*1) Urgent
Reason for Study: Chest Pain
EKG- Treatment ONCE
04/15/24 20:11
Complete Blood Count/With Diff Urgent
Comprehensive Metabolic Panel Urgent
Troponin I Urgent
04/15/24 23:22
Urinalysis Reflex To Culture Urgent
Date Specimen was Collected: 04/15/24
Time Specimen was Collected: 23:21
Urine Microscopic Reflex Cult Urgent
Urine Culture Urgent
ARTURO Source: U
Specimen Description:
Date Specimen was Collected: 04/15/24
Time Specimen was Collected: 23:21
04/16/24 00:12
CT Abd/pelvis W Iv Cont Urgent
Comment:
Reason For Exam: left flank pain, UTI
04/16/24 02:50
Fosfomycin [Monurol] 3 gm PO ONCE ONE
04/16/24 08:00
Sulfamethox./Trimethoprim Ds [Bactrim Ds 800 mg/160 mg] 1 tablet PO BID
Abnormal Lab Results
04/15/24 04/15/24
20:11 23:22
RBC 4.68 L 10^6/uL
(4.70-6.10)
RDW 14.9 H %
(11.5-14.5)
Lymphocytes % 19.2 L %
(20.5-51.1)
Glucose 102 H mg/dl
(70-99)
Urine Ketones 2+ A
(Negative)
Ur Occult Blood Reflex 4+ A
(Negative)
Leukocyte Esterase Rfl 3+ A
(Negative)
Urine RBC 30-40 A /HPF
(0-2)
Urine WBC (Reflex) 50-60 A /HPF
(0-5)
Urine Bacteria (Reflex) Moderate A
(Negative)
Urine Albumin (Reflex) 2+ A
(Neg - Trace)
04/15/24 20:11
04/15/24 20:11
Vital Signs
Initial and Last Documented VS:
Initial Vital Signs
Temp Pulse Resp BP Pulse Ox
98.9 F 74 18 173/103 100
04/15/24 19:43 04/15/24 19:43 04/15/24 19:43 04/15/24 19:43 04/15/24 19:43
Last Documented Vital Signs
Temp Pulse Resp BP Pulse Ox
98.9 F 72 20 147/62 98
04/15/24 19:43 04/16/24 02:44 04/16/24 02:44 04/16/24 02:44 04/16/24 02:44
*Critical Care Note
Total Time (30-74mins, 75-104mins- exclusive of procedures): Not Applicable
Update Note
Update Note:
CT ABDOMEN/PELVIS WITH CONTRAST
IMPRESSION:
1. Bladder wall thickening, can be correlated with signs or symptoms of cystitis. No evidence of obstructive uropathy.
2. No bowel obstruction. Normal gallbladder and appendix
Incidentals:
-Moderate stool burden
- No obstructive uropathy.
-Hepatic hypodensities, not well characterized
-Evidence of prior aortobiiliac stent repair without evidence of failure
- No acute osseous abnormality.
- No acute abnormality within the visualized lungs.
- No acute abnormality within the visualized soft tissues.
Case finalized on Apr 16 2024 2:35AM ET
ED Attending Note
-
Portions of this chart may have been created with voice recognition software.� Occasional wrong word or��sound alike� substitutions may have occurred due to the inherent limitations of voice recognition software.
Discharge Plan
Departure
Patient Disposition: Home (Routine Discharge)
Date of Disposition: 04/16/24
Time of Disposition: 02:49
Patient with high blood pressure during this ER visit?: Yes
Condition: Good
Discharge Problem:
Urinary tract infection
Instructions: Urinary tract infections in adults, BLOOD PRESSURE
Prescriptions:
No Action
amlodipine 2.5 MG tablet
2.5 mg PO DAILY
tamsulosin 0.4 MG capsule
0.4 mg PO HS
albuterol sulfate 90 mcg/actuation Hfa Aerosol Inhaler
2 puff INHALATION R Q6HPRN PRN (Reason: SOB)
clopidogrel 75 MG tablet
75 mg PO DAILY
losartan 25 mg Tablet
50 mg PO DAILY 30 Days Qty: 60 0RF
finasteride 5 mg Tablet
5 mg PO DAILY 30 Days Qty: 30 0RF
amoxicillin-pot clavulanate 500-125 mg Tablet
1 tab PO Q12 1 Days Qty: 2 0RF
alprazolam 0.5 mg Tablet
0.5 mg PO BID PRN (Reason: anxiety ) 3 Days Qty: 6 0RF
Referrals:
Edu Acuna DO [Family Provider] -
Activity Restrictions/Additional Instructions:
You received a one-time dose of antibiotics here in the emergency department. No further prescription is necessary.
It was a pleasure meeting you and taking part in your care. We hope for your continued healing and wellness.
Please read discharge instructions in their entirety. However, they are for general education and may not describe your exact diagnosis at discharge. Information on your ER visit and medical conditions were discussed with you along with appropriate
follow up information...
If indicated, please take your medications as instructed and indicated on discharge paperwork.
Please schedule a follow up appointment as directed. Call to schedule an appointment
Please return to the emergency department with ANY change in, persisting, or worsening of symptoms. If any of your symptoms do not improve, or persist, or become more severe within 6-12 hours, please return to the emergency department for further
care.
Please return to the emergency department if you develop a headache, neck pain/stiffness, fever greater than 100.4F, chest pain, shortness of breath, persistent nausea, vomiting, slurred speech, difficulty walking, numbness/tingling, weakness, signs
of infection or any other symptoms that are worrisome to you.
If you have any questions or concerns please do not hesitate to call the Hospital at or E-mail me directly at [email or web address]
Interventions
Interventions:
*Risk Screen - Suicide Last Done: 04/15/24 19:43
*General Assessment Last Done: 04/15/24 19:43
*Neglect/Abuse Screening Last Done: 04/15/24 19:43
ED- Fall Risk Assessment Last Done: 04/15/24 22:57
*ED COVID-19 Vaccine History Last Done: 04/15/24 19:43
Discharge Date and Time
Print Language: MONTSERRATIAN
[2024-04-15 22:52] VITALS: BP 163/96
[2024-04-15 23:35] LABS: Urine Albumin 2+ (Neg - Trace); Urine Bilirubin Negative (Negative); Urine Character Slightly Cloudy (Clear); Urine Color Yellow; Urine Glucose Negative (Negative); Urine Ketone 2+ (Negative); Urine Leukocyte 3+ (Negative); Urine Nitrite Negative (Negative); Urine Occult Blood 4+ (Negative); Urine Urobilinogen Negative (Neg - 1+)
[2024-04-15 23:43] LABS: Urine Bacteria Moderate (Negative); Urine Red Blood Cell 30-40 /HPF (0-2); Urine White Cell 50-60 /HPF (0-5)
[2024-04-16] VITALS: BP 149/88
[2024-04-16 01:00] VITALS: BP 151/90
[2024-04-16 02:44] VITALS: BP 147/62
[2024-04-16] MEDS: MONUROL 3 GM PO (03:08)
== END 2024-04-16 03:48 | disposition home or self-care (01) ==
LOC: EMR 19:39
PROVIDERS: Emergency Medicine; EMERGENCY PHYSICIAN Student in an Organized Health Care Education/Training Program; FAMILY PHYSICIAN Family Medicine
DX: N39.0 Urinary tract infection, site not specified (principal); R42 Dizziness and giddiness; R53.1 Weakness; R07.89 Other chest pain; I10 Essential (primary) hypertension; E07.9 Disorder of thyroid, unspecified; F84.5 Asperger's syndrome; G61.0 Guillain-Barre syndrome; J44.9 Chronic obstructive pulmonary disease, unspecified; G62.9 Polyneuropathy, unspecified; M19.90 Unspecified osteoarthritis, unspecified site; E05.00 Thyrotoxicosis with diffuse goiter without thyrotoxic crisis or storm; F41.9 Anxiety disorder, unspecified; F32.A Depression, unspecified; Z85.820 Personal history of malignant melanoma of skin; Z85.118 Personal history of other malignant neoplasm of bronchus and lung; Z86.718 Personal history of other venous thrombosis and embolism; Z87.891 Personal history of nicotine dependence; Z86.79 Personal history of other diseases of the circulatory system; Z88.1 Allergy status to other antibiotic agents; Z88.0 Allergy status to penicillin
CPT/HCPCS: 99285; 74177; 80053; 81003; 81015; 84484; 85025; 87086; 93005; Q9967

== ENCOUNTER 2024-09-19 19:58 | Emergency (ER) | payer MEDICARE, SELFPAY ==
[2024-09-19 20:19] VITALS: BP 160/102
[2024-09-19 21:32] VITALS: BP 133/87
[2024-09-19 21:33] VITALS: BMI 23.4
[2024-09-19 21:34] VITALS: BMI 23.4
[2024-09-20 00:27] LABS: Urine Character Cloudy (Clear)
--- NOTE | 2024-09-20 00:31 | ED.GENMED ---
History of Present Illness
General
Chief Complaint: Catheter/Tube Problem
Time Seen by Provider: 09/19/24 23:28
History of Present Illness
History of Present Illness:
68-year-old male with history of chronic indwelling Alonzo presenting to the emergency department for displaced Alonzo catheter. Patient reports earlier today he had a bowel movement and when he was cleaning himself up, he put his catheter to the
side and it fell out. He notes that the balloon was mostly deflated when it came out. Does note in the past few days has been feeling generally unwell, some lightheadedness. Does note history of UTI he currently is feeling well. He denies any
fever, chest pain occultly breathing. Does note prior to arrival was having significant lower abdominal discomfort, however had a Alonzo catheter placed by nursing staff upon arrival with output of 800 cc of urine. Notes that since catheter placed,
is feeling much better. Denies present acute medical complaints
Past History
Past History
ED Past Medical History: Cancer (Skin CA), HTN and Other (AAA, DVT, thyroid disorder, skin cancer, Cellulitis, Aspergers syndrome)
ED Past Surgical History: Tonsilectomy and Other (AAA repair, Right vein stripping, Left shoulder Mohs surgery)
Social History
Tobacco: Former smoker
Alcohol: None
Personal: Single
Living: alone
Employment: Retired
Family History
Family History: Other (Noncontributory)
Phy Exam
Physical Exam
Physical Exam:
General: Well-appearing, no clinical signs of dehydration, nontoxic and in no acute distress
HEENT: protecting airway
Neck: appears supple
CV: Normal heart rate
Resp: No accessory muscle use, no increased work of breathing
Abd: Soft and non-distended, no tenderness to palpation
Extremities: No deformities, no swelling. No tenderness to the lower back
Neuro: alert, no focal neurologic deficit
: deferred
Rectal: deferred
Psych: Normal affect
Skin: Intact
Course
Orders/Labs/Results
Orders:
Orders
09/20/24 00:06
Urinalysis Reflex To Culture Urgent
Date Specimen was Collected: 09/20/24
Time Specimen was Collected: 00:05
Urine Microscopic Reflex Cult Urgent
Urine Culture Urgent
ARTURO Source: U
Specimen Description:
Date Specimen was Collected: 09/20/24
Time Specimen was Collected: 00:05
09/20/24 01:53
Cephalexin Monohydrate [Keflex] 500 mg PO NOW STA
Abnormal Lab Results
09/20/24
00:06
Ur Occult Blood Reflex 4+ A
(Negative)
Leukocyte Esterase Rfl 3+ A
(Negative)
Urine RBC 7-10 A /HPF
(0-2)
Urine WBC (Reflex) >100 A /HPF
(0-5)
Urine Bacteria (Reflex) Few A
(Negative)
Urine Albumin (Reflex) 3+ A
(Neg - Trace)
Vital Signs
Initial and Last Documented VS:
Initial Vital Signs
Temp Pulse Resp BP Pulse Ox
98.9 F 82 18 160/102 97
09/19/24 20:19 09/19/24 20:19 09/19/24 20:19 09/19/24 20:19 09/19/24 20:19
Last Documented Vital Signs
Temp Pulse Resp BP Pulse Ox
98.6 F 85 20 133/87 99
09/19/24 21:32 09/19/24 21:32 09/19/24 21:32 09/19/24 21:32 09/20/24 00:33
MDM/Problems Addressed
MDM/Problems Addressed:
68-year-old male with history of chronic indwelling Alonzo catheter presenting to the emergency department for dislodged Alonzo catheter. Vital signs on arrival are significant for high blood pressure, however improved after Alonzo catheter insertion.
On exam patient resting comfortably, no acute distress or discomfort. Alonzo catheter is draining, replaced out difficulty per nursing, however urine does appear cloudy and dark in color. Notes that he has been feeling generally unwell in the past
few days. UTI. Patient afebrile, nontoxic with lower suspicion for systemic infection. Otherwise unremarkable cardiac, pulmonary, abdominal exam. Will send urinalysis.
01:50 - Urine is consistent with infection. On evaluation of prior cultures, pansensitive. Will start patient on cephalexin. Otherwise at this time feel stable for discharge. Return precautions discussed and patient verbalized understanding
*Pulse Oximetry
SaO2: 99
Oxygen Mode of Delivery: Room air
Patient hypoxic: no
*Critical Care Note
Total Time (30-74mins, 75-104mins- exclusive of procedures): Not Applicable
ED Attending Note
-
Portions of this chart may have been created with voice recognition software.� Occasional wrong word or��sound alike� substitutions may have occurred due to the inherent limitations of voice recognition software.
Discharge Plan
Departure
Patient Disposition: Home (Routine Discharge)
Date of Disposition: 09/20/24
Time of Disposition: 01:54
Patient with high blood pressure during this ER visit?: Yes
Condition: Good
Discharge Problem:
Acute urinary retention, Urinary tract infection
Instructions: BLOOD PRESSURE, Urinary Tract Infection - Men
Prescriptions:
New
cephalexin 500 mg capsule
500 mg PO Q12H 7 Days Qty: 14 0RF
No Action
amlodipine 2.5 MG tablet
2.5 mg PO DAILY
tamsulosin 0.4 MG capsule
0.4 mg PO HS
albuterol sulfate 90 mcg/actuation Hfa Aerosol Inhaler
2 puff INHALATION R Q6HPRN PRN (Reason: SOB)
clopidogrel 75 MG tablet
75 mg PO DAILY
losartan 25 mg Tablet
50 mg PO DAILY 30 Days Qty: 60 0RF
finasteride 5 mg Tablet
5 mg PO DAILY 30 Days Qty: 30 0RF
amoxicillin-pot clavulanate 500-125 mg Tablet
1 tab PO Q12 1 Days Qty: 2 0RF
alprazolam 0.5 mg Tablet
0.5 mg PO BID PRN (Reason: anxiety ) 3 Days Qty: 6 0RF
Referrals:
Edu Acuna DO [Family Provider, Family Practice]
Activity Restrictions/Additional Instructions:
You were seen in the emergency department for urine retention
You were found to have retained urine and your Alonzo catheter was changed. Urine does have sign of infection so you are started on antibiotic. Please take as directed.
Please follow-up closely with your primary care physician.
Return to the emergency department for any worsening of your symptoms, or any development of chest pain, difficulty breathing, abdominal pain with persistent vomiting and inability to tolerate food or liquid by mouth (concern for dehydration),
weakness, headache or confusion, fever greater than 100.4, or any additional symptoms that are concerning to you.
Thank you for choosing [facility].
Interventions
Interventions:
*Risk Screen - Suicide Last Done: 09/19/24 20:19
*General Assessment Last Done: 09/19/24 20:19
*Neglect/Abuse Screening Last Done: 09/19/24 20:19
*ED- Fall Risk Assessment Last Done: 09/19/24 21:29
*ED COVID-19 Vaccine History Last Done: 09/19/24 20:19
TG-Akhvso-Zllsfeolhr Assessment Last Done: 09/19/24 21:29
ED-Male Genitourinary Assessment Last Done: 09/19/24 21:30
Discharge Date and Time
Print Language: BELARUSIAN
[2024-09-20 01:13] LABS: Urine Squamous Cell None seen /LPF (Few)
[2024-09-20 01:14] LABS: Urine White Cell >100 /HPF (0-5)
[2024-09-20] MEDS: KEFLEX 500 MG PO (01:58)
== END 2024-09-20 02:25 | disposition home or self-care (01) ==
LOC: EMR 19:58
PROVIDERS: EMERGENCY PHYSICIAN Student in an Organized Health Care Education/Training Program; FAMILY PHYSICIAN Family Medicine
DX: N39.0 Urinary tract infection, site not specified (principal); R33.9 Retention of urine, unspecified; F84.5 Asperger's syndrome; I10 Essential (primary) hypertension; Z86.718 Personal history of other venous thrombosis and embolism; Z87.891 Personal history of nicotine dependence
CPT/HCPCS: 51702; 99283; 81003; 81015; 87077; 87086; 87186

== ENCOUNTER 2025-02-11 23:46 | Emergency (ER) | payer MEDICARE, SELFPAY ==
[2025-02-11 23:49] VITALS: BP 154/103
[2025-02-12 02:25] LABS: Urine Character Slightly Cloudy (Clear)
--- NOTE | 2025-02-12 03:18 | ED.GENMED ---
History of Present Illness
General
Chief Complaint: Urinary Symptoms
Source: patient
Exam Limitations: none
Time Seen by Provider: 02/12/25 02:06
Nursing documentation reviewed up to this point in time: agreed with
History of Present Illness
History of Present Illness:
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 He reports that he has had a catheter in place for extended
period time and he follows with Dr. Chung for urology. He was getting his catheter change 3 days ago at 3 PM and he felt like the nursing staff was more forceful than usual at that time. He notes some discomfort afterwards and the following day,
he noticed blood in the urine. He also had some pelvic pain which has since resolved. Currently, no pelvic pain or abdominal pain. He reports that the blood seemed to have cleared up but is still present and his urine is pink-tinged. He denies
any fever. He denies any flank pain. He denies any lightheadedness or dizziness. He denies any syncopal episodes. Patient is concerned that he may have been tugging at his catheter in his sleep.
Past History
Past History
ED Past Medical History: Cancer (Skin CA), HTN and Other (AAA, DVT, thyroid disorder, skin cancer, Cellulitis, Aspergers syndrome)
ED Past Surgical History: Tonsilectomy and Other (AAA repair, Right vein stripping, Left shoulder Mohs surgery)
Social History
Tobacco: Former smoker
Alcohol: None
Personal: Single
Living: alone
Employment: Retired
Family History
Family History: Other (Noncontributory)
Review of Systems
Review of Systems
All Other Systems: ROS reviewed and negative except as documented in HPI and ROS
Phy Exam
Physical Exam
Physical Exam:
General: Patient is well appearing and in no acute distress; non-toxic
Skin: Warm and dry, no rashes or lesions
Head: Normocephalic, atraumatic
Eyes: Sclera non-icteric. EOMs intact.
Cardiac: Regular rate and rhythm, no murmurs
Peripheral Vascular: No lower extremity swelling or edema
Pulm: Normal respiratory effort, no wheezes, rales, rhonchi
Abdomen: No abdominal tenderness to palpation
Neuro: CN II-XII intact, no focal neurologic deficits.
Psychiatric: Appropriate mood and affect.
Course
Orders/Labs/Results
Orders:
Orders
02/12/25 02:18
Urinalysis Reflex To Culture Urgent
Date Specimen was Collected: 02/12/25
Time Specimen was Collected: 02:15
Urine Microscopic Reflex Cult Urgent
Urine Culture Urgent
ARTURO Source: U
Specimen Description:
Date Specimen was Collected: 02/12/25
Time Specimen was Collected: 02:15
02/12/25 02:24
Wallace [Wallace Placement- Treatment] ONCE
Reason for insertion: Chronic Wallace on Admit
02/12/25 03:34
Complete Blood Count/With Diff Urgent
Comprehensive Metabolic Panel Urgent
02/12/25 04:43
Cephalexin Monohydrate [Keflex] 500 mg PO NOW STA
Abnormal Lab Results
02/12/25 02/12/25
02:18 03:34
RBC 4.17 L 10^6/uL
(4.70-6.10)
Hgb 12.9 L g/dL
(13.0-18.0)
Hct 37.0 L %
(39.0-52.0)
Sodium 134 L mmol/L
(135-145)
Glucose 128 H mg/dl
(70-99)
Total Protein 6.2 L g/dl
(6.3-8.2)
Ur Occult Blood Reflex 4+ A
(Negative)
Leukocyte Esterase Rfl 3+ A
(Negative)
Urine RBC >100 A /HPF
(0-2)
Urine WBC (Reflex) 40-50 A /HPF
(0-5)
Urine Bacteria (Reflex) Many A
(Negative)
Urine Albumin (Reflex) 3+ A
(Neg - Trace)
02/12/25 03:34
02/12/25 03:34
Vital Signs
Initial and Last Documented VS:
Initial Vital Signs
Temp Pulse Resp BP Pulse Ox
98.2 F 89 20 154/103 98
02/11/25 23:49 02/11/25 23:49 02/11/25 23:49 02/11/25 23:49 02/11/25 23:49
Last Documented Vital Signs
Temp Pulse Resp BP Pulse Ox
98.2 F 87 18 166/97 96
02/11/25 23:49 02/12/25 05:00 02/12/25 05:00 02/12/25 05:00 02/12/25 05:00
MDM/Problems Addressed
Differential Diagnosis Includes:
Differentials include UTI, interstitial cystitis, bladder cancer, urethral trauma, etc
MDM/Problems Addressed:
69-year-old male presents ER today with concerns of hematuria. He has no abdominal pain or pelvic pain at this time. He did have some pelvic pain earlier but when he had his Wallace switched out in the ER, the pain seemed to resolved and he feels
more comfortable with the new Wallace. His Wallace has been draining without any problems. There has been no signs of blockage or obstruction in the Wallace catheter. Blood work is unremarkable and his hemoglobin is normal and stable. Patient is
feeling well. Urinalysis shows leukocyte esterase and lots of white blood cells with lots of red cells and many bacteria. Hematuria could be result of infection. No indication for CBI at this time as patient has no pain, there is no blockage in
the catheter, and patient is not passing clots. Patient has had no flank pain, no abdominal pain, no concern for obstructing stone. Blood has been clearing and improving while patient has been in the ER. Will initiate antibiotics. Case discussed
with ED attending who agrees with plan. Patient will call his urologist this week to schedule close follow-up. Patient stable for discharge. Discussed tricked return precautions and to return immediately should his catheter stopped draining.
*Pulse Oximetry
SaO2: 98
Oxygen Mode of Delivery: Room air
Patient hypoxic: no
*Critical Care Note
Total Time (30-74mins, 75-104mins- exclusive of procedures): Not Applicable
Data Reviewed
Review of Other/Old Records Reveals: Records (Reviewed ER physician documentation from 09/20/2024, reviewed discharge summary from 12/02/2023)
Patient Management
Escalation/DeEscalation of care consider admission/obs:
Admit not indicated, patient stable for discharge
ED Attending Note
-
Portions of this chart may have been created with voice recognition software.� Occasional wrong word or��sound alike� substitutions may have occurred due to the inherent limitations of voice recognition software.
Discharge Plan
Departure
Patient Disposition: Home (Routine Discharge)
Date of Disposition: 02/12/25
Time of Disposition: 04:48
Patient with high blood pressure during this ER visit?: Yes
Condition: Good
Discharge Problem:
Gross hematuria, Urinary tract infection
Instructions: Urinary Tract Infection, Adult (DC), Blood in the Urine (Hematuria), Adult (DC), BLOOD PRESSURE
Prescriptions:
New
cephalexin 500 mg capsule
500 mg PO BID 7 Days Qty: 14 0RF
No Action
amlodipine 2.5 MG tablet
2.5 mg PO DAILY
tamsulosin 0.4 MG capsule
0.4 mg PO HS
albuterol sulfate 90 mcg/actuation Hfa Aerosol Inhaler
2 puff INHALATION R Q6HPRN PRN (Reason: SOB)
clopidogrel 75 MG tablet
75 mg PO DAILY
cephalexin 500 mg capsule
500 mg PO Q12H 7 Days Qty: 14 0RF
losartan 25 mg Tablet
50 mg PO DAILY 30 Days Qty: 60 0RF
finasteride 5 mg Tablet
5 mg PO DAILY 30 Days Qty: 30 0RF
amoxicillin-pot clavulanate 500-125 mg Tablet
1 tab PO Q12 1 Days Qty: 2 0RF
alprazolam 0.5 mg Tablet
0.5 mg PO BID PRN (Reason: anxiety ) 3 Days Qty: 6 0RF
Referrals:
Edu Acuna, DO [Family Provider, Family Practice]
Activity Restrictions/Additional Instructions:
Please call Dr. Chung this week to schedule follow-up appointment. Please let him know that you are seen in the ER. Please resume Keflex. Please take 1 tablet twice daily for 7 days. PLEASE RETURN TO ER SHOULD YOU NOTICE THAT YOUR WALLACE
CATHETER STOPS DRAINING, SHE DEVELOP PELVIC PAIN, ABDOMINAL PAIN, FLANK PAIN, FEVERS OR CHILLS, ANY OTHER SIGNS OR SYMPTOMS WORRISOME TO YOU.
Please stay well-hydrated.
Interventions
Interventions:
*General Assessment Last Done: 02/12/25 02:23
*Neglect/Abuse Screening Last Done: 02/12/25 02:23
*ED COVID-19 Vaccine History Last Done: 02/12/25 02:24
*ED Influenza Vaccine History Last Done: 02/12/25 02:24
[facility] Fall Risk Assessment Tool Last Done: 02/12/25 02:23
*Risk Screen - Suicide (C-SSRS) Last Done: 02/11/25 23:49
*Nursing Disposition Last Done: 02/12/25 05:09
ED-Male Genitourinary Assessment Last Done: 02/12/25 02:00
Discharge Date and Time
Discharge Date/Time: 02/12/25 05:15
Print Language: BELARUSIAN
[2025-02-12 04:14] LABS: Hematocrit 37.0 % (39.0-52.0); Hemoglobin 12.9 g/dL (13.0-18.0); Mean Corp Hgb Conc. 34.9 g/dL (33.0-37.0); Mean Corpuscular Volume 88.7 fL (80.0-94.0); Nucleated Red Blood Cells % 0 % (-); Platelet Count 211 10^3/uL (130-400); Red Cell Dist. Width 13.6 % (11.5-14.5)
[2025-02-12 04:30] LABS: Urine Red Blood Cell >100 /HPF (0-2); Urine Squamous Cell >30 /LPF (Few)
[2025-02-12 04:31] LABS: Urine White Cell 40-50 /HPF (0-5)
[2025-02-12 04:32] LABS: ALT (SGPT) 11 U/L (0-50); AST (SGOT) 19 U/L (17-59); Albumin 3.8 g/dl (3.5-5.0); Alkaline Phosphatase 68 U/L (38-126); Blood Urea Nitrogen 14 mg/dl (9-20); Calcium 9.1 mg/dl (8.4-10.2); Carbon Dioxide 25 mmol/L (22-30); Chloride 105 mmol/L (98-107); Glucose 128 mg/dl (70-99); Potassium 3.8 mmol/L (3.5-5.1); Sodium 134 mmol/L (135-145); Total Protein 6.2 g/dl (6.3-8.2); eGFR > 60.00
[2025-02-12] MEDS: KEFLEX 500 MG PO (04:56)
[2025-02-12 05:00] VITALS: BP 166/97
== END 2025-02-12 05:15 | disposition home or self-care (01) ==
LOC: EMR 23:46
PROVIDERS: Physician Assistant; EMERGENCY PHYSICIAN Emergency Medicine; FAMILY PHYSICIAN Family Medicine
DX: R31.0 Gross hematuria (principal); I10 Essential (primary) hypertension; N39.0 Urinary tract infection, site not specified; N31.9 Neuromuscular dysfunction of bladder, unspecified
CPT/HCPCS: 99283; 51702; 80053; 81003; 81015; 85025; 87077; 87086; 87186